=== PATIENT | female | born 1975 | race Caucasian/White ===

== ENCOUNTER → 2019-12-23 11:06 | Outpatient (CLI) | payer OTHER, SELFPAY ==
--- NOTE | 2019-12-22 | EMB_PTH ---
PATIENT: DAT MERINO LOC: [facility] U#:[id number] AGE/SX: 50/F ROOM: RE12/23/[address]: Dr. Kong Shrestha MD : 1975 BED: DIS: SPEC #: [id number] RECD: 12/23/19 10:57 STATUS: CRISTINA DARÍO #: [id number] JAY: 12/22/19 00:[address]: Kong Shrestha DEPT: SURGICAL PATHOLOGY RECD BY: Marquez Jensen Tissues: Endometrium, NOS Procedures: Surgery Specimen Level IV HEADER OPERATION: Endometrial biopsy PRE-OP DIAGNOSIS: N92.1 TISSUE SUBMITTED: Endometrial biopsy MICROSCOPIC DIAGNOSIS Endometrium, biopsy: Polypoid fragments of benign, mildly inflamed endocervical tissue. See comment. AM:raffi 12/24/19 COMMENT The specimen may represent fragments of benign endocervical polyp. Clinical correlation is suggested. MICROSCOPIC DESCRIPTION Slides are reviewed. GROSS DESCRIPTION Received in fixative is one container labeled with the patient's name and designated EM biopsy. The specimen consists of multiple fragments of hemorrhagic mucoid tissue that in aggregate measure 1 x 1 x 0.1 cm. The specimen is totally submitted in one cassette. / SJ:raffi 12/23/19 TC:5 CPT: 63030
== END ==
PROVIDERS: Referring Provider Obstetrics & Gynecology; Visit Provider Obstetrics & Gynecology
DX: N92.1 Excessive and frequent menstruation with irregular cycle (principal)
CPT/HCPCS: 88305

== ENCOUNTER 2025-05-21 05:33 | Day surgery (SDC) | payer OTHER, SELFPAY ==
--- NOTE | 2025-05-10 16:45 | PAT.ANE_ITS ---
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 When Was Last Pacemaker Check QUESTION #4 FULL TEXT: You/Your Family Experience fever (hyperthermia) with Anesthesia Last Oral Intake Last Oral intake: Last Oral Intake NPO since Meds taken in AM with sips of water? Meds patient instructed to take am of surgery PONV PONV - tool planer set up operator: PONV - tool planer set up operator Female Yes 05/10/25 09:24 HX of Motion Sickness No 05/10/25 09:24 HX of N/V After Surgery No 05/10/25 09:24 Non-Smoker Yes 05/10/25 09:24 Duration of Surgery greater Yes 05/10/25 09:24 than 60 minutes Number of Risk Factors 3 05/10/25 09:24 PONV Score Moderate Risk 05/10/25 09:24 Respiratory Assessment Respiratory Assessment - tool planer set up operator: Respiratory Tract Infection Hx - tool planer set up operator Hx Respiratory Tract Infection No 05/10/25 09:24 STOP Sleep Apnea STOP Sleep Apnea - tool planer set up operator: STOP Sleep Apnea - tool planer set up operator Hx Hypertension No 05/10/25 09:24 Hx Sleep Apnea No 05/10/25 09:24 CPAP BIPAP Do you snore loudly (louder No 05/10/25 09:24 than talking or can be heard Do you often feel tired/ No 05/10/25 09:24 fatigued/ sleepy during daytime? Has anyone observed you stop No 05/10/25 09:24 breathing during sleep? STOP Results Negative 05/10/25 09:24 QUESTION #5 FULL TEXT : Do you snore loudly (louder than talking or can be heard through closed doors)? 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 Specify any problems Hx of Preganancy in last 3 No 05/10/25 09:24 Months Nurse Filling Out Transfusion JZOLLINGE 05/10/25 09:24 & Questions: Date: 05/10/25 05/10/25 09:24 Time: 0905/10/25 09:24 Patient unable to answer at this time (ie. confused, unrespo /Reproduction History /Reproductive History - tool planer set up operator: /Reproductive Hx- tool planer set up operator Hx Now No 05/10/25 09:24 Gestational Age (in weeks): EDC: Hx Hx Para Hx Section SAB No 05/10/25 09:24 [facility] Medical History (Updated 05/10/25 @ 09:24 by Elsa Rivera) Wears glasses Wears partial dentures Anxiety Hx of hypoglycemia Migraine headache Heartburn Non-smoker Shortness of breath on exertion Asthma History of echocardiogram Cardiology follow-up encounter History of stress test Home Medications ?Medication ?Instructions ?Recorded ?Last Taken ?Type budesonide-formoterol HFA 160 1 puff inhalation BID Unknown History mcg-4.5 mcg/actuation aerosol inhaler (Symbicort) megestrol 40 mg tablet 80 mg PO BID 05/10/25 Unknow n History sertraline 50 mg tablet 50 mg PO DAILY 05/10/25 Unkn own History Allergy/AdvReac Type Severity Reaction Status Date / Time albuterol Allergy Intermediate Chest Verified 05/10/25 09:10 tightness acetaminophen (From Tylenol) AdvReac Intermediate Rash Verified 05/10/25 09:09 Surgical History (Updated 05/10/25 @ 09:24 by Elsa Rivera) Hx of foot surgery Hx of tonsillectomy Social History Smoking Status: Never smoker Audit: Pertinent Findings Pertinent Findings EKG Perinent findings: ? Date. Normal sinus rhythm Echo (EF%) pertinent findings: January 22, 2025. EF is 55 to 60%. No regional wall motion abnormalities are seen. No aortic stenosis. Aortic root is dilated to 3.9 cm. Consult pertinent findings: March 26, 2025. Dr. Schulte?cardiology. 1. Chest pain-normal CT coronary angiography. 2. Preop clearance-May proceed with planned hysterectomy. 3. Dilation of ascending aorta. Mildly elevated at 3.8. Patient is to monitor blood pressures at home and report back if going up. 4. Obesity?discussed weight loss. Recommendation Anesthesia Recommendation Anesthesia recommendation: OPTIMIZED for anesthesia
[2025-05-13 08:19] LABS: Hematocrit 36.9 % (37-47); Hemoglobin 11.8 g/dL (12.0-15.0); Mean Corp Hgb Conc 32.0 g/dL (32-36); Mean Corpuscular Volume 74.8 fL (81-99); Mean Platelet Vol. 10.0 fl (6.2-12.0); Platelet Count 403 K/mm3 (150-450); RBC Distribution Width CV 15.7 % (11.6-14.6); RBC Distribution Width SD 42.9 fl (35.1-43.9); Red Blood Count 4.93 M/mm3 (4.2-5.4); White Blood Count 7.3 K/mm3 (4.4-11.0)
[2025-05-13 09:10] LABS: Anion Gap 11 (5-15); BUN 18 mg/dL (4-19); BUN/Creat Ratio 27.5 RATIO (10-20); Calcium,Total 8.7 mg/dL (7.6-11.0); Carbon Dioxide 21.8 mmol/L (21.0-32.0); Chloride 106 mmol/L (98-108); Glucose 101 mg/dL (70-99); Potassium 4.0 mmol/L (3.3-5.1)
[2025-05-13 12:32] LABS: Magnesium 2.2 mg/dL (1.5-2.2)
--- NOTE | 2025-05-19 12:01 | PCM.HP.BLA ---
History and Physical Date of Admission: 05/21/25 Expand All Collapse All Pre-Op History and Physical HPI: The patient is a 49 year old female presenting for pre-operative visit. She is scheduled for TLH, Bilateral salpingectomy, cyst, for Fibroid uterus, AUB on 05/21/25. Procedure discussed along with risks, benefits and complications. Other alternatives discussed for management. Consent form signed? Yes. PAST MEDICAL HISTORY PAST MEDICAL HISTORY Diagnosis Date ? Generalized anxiety disorder ? 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 FOOT SURGERY HX Left toe surgery ? ORAL SURGERY PROCEDURE ? TONSILLECTOMY & ADENOIDECTOMY <AGE 13 CURRENT MEDICATIONS Current Outpatient Medications Medication Sig Dispense Refill ? norethindrone (AYGESTIN) 5 mg tablet Take one tablet daily 30 tablet 1 ? SYMBICORT 160-4.5 mcg/actuation inhaler Inhale 1 puff as instructed two times a day. ? sertraline (ZOLOFT) 50 mg tablet Take 50 mg by mouth once daily. ? Epinastine HCl 0.05 % drop Use 1 drop in both eyes two times a day. ? tranexamic acid (LYSTEDA) 650 mg tablet Take 2 tablets 3 times a day as needed for heavy bleeding up to 5 days. 30 tablet 1 No current facility-administered medications for this visit. ALLERGIES: Albuterol and Acetaminophen PERSONAL HISTORY: SOCIAL HISTORY Social History Tobacco Use ? Smoking status: Never ? Smokeless tobacco: Never Vaping Use ? Vaping status: Never Used Substance Use Topics ? Alcohol use: Not Currently ? Drug use: Never FAMILY HISTORY: FAMILY HISTORY FAMILY HISTORY Problem Relation Age of Onset ? other (afib) Mother ? Diabetes Mother ? Hypertension Mother ? Hyperlipidemia Mother ? Stroke Father 73 ? Diabetes Father ? Hypertension Father ? Hyperlipidemia Father ? Kidney failure Sister stage 3 ? Diabetes Sister ? Hypertension Sister ? Hyperlipidemia Sister REVIEW OF SYMPTOMS: negative except as noted above PHYSICAL EXAMINATION: VITALS: Last menstrual period 03/11/2025. GENERAL: The patient is well nourished, well hydrated in no acute distress. , The patient is oriented to time, place, and person. NECK: full range of motion LUNGS: Clear to auscultation bilaterally. no wheezes, rhonchi or rales HEART: Regular rate and rhythm, Normal heart sounds, and No murmurs or gallops IMPRESSION: 49yo with AUB, fibroid uterus PLAN: total laparoscopic Hysterectomy, Bilateral salpingectomy, Cysto Pt has been counseled on risks/benefits and alternatives of surgery including but not limited to anesthesia, bleeding, infection, injury to pelvic structures including bowel, bladder, ureters and vessels. Pt wishes to proceed with surgery at this time. Pre and post op instructions reviewed I have reviewed and updated past medical and surgical history, medications and allergies Tequila Madsen MD Office Visit on 04/28/2025 Note shared with patient
[2025-05-21] VITALS (14 sets, daily range): BP systolic 106–151; BP diastolic 52–99; PULSE 66–83; RESP 14–18; TEMP 36.1–36.7; O2SAT 92–100; BMI 41.1
--- OUTSIDE RECORDS SUMMARY | 2025-05-21 05:38 | XMS RPT_ITS | CCD ---
Author Organization [facility] Care Team Providers Care Strategic Manager Name Role Phone TANNER CASTRO Unavailable Unavailable MICHA CASTRO Unavailable Unavailable KATE ALBERTO Attending Unavailable MICHA CASTRO Primary Care Unavailable MARIELENA CALHOUN Referring Unavailable Marielena Calhoun PA-C Unavailable [phone] Marielena Calhoun PA-C Unavailable Rheumatolgy Provider Unavailable Unavailable Security Systems Administrator/Gynecology Prov. Unavailable Un available General Surgery Provider Unavailable Unavail able Fady MCGREGOR, Dr. Kong Gonzalez Unavailable Marislo York PA-C Unavailable Jacoby MCGREGOR, Greyson Gonzalez Unavailable Linda MEDICAL OFFICE PROFESSIONAL INSTRUCTOR, Susan Gonzalez Unavailable Unavailab bonnie Moore MEDICAL OFFICE PROFESSIONAL INSTRUCTOR, Nannette Luna Unavailable Unavailab bonnie Albert MEDICAL OFFICE PROFESSIONAL INSTRUCTOR, Lori Unavailable Unavailabl e Zaugg MEDICAL OFFICE PROFESSIONAL INSTRUCTOR, Katy Unavailable Unavailable Unavailable Unavailable Miguel Angel Ware PA-C Unavailable Eddi MEDICAL OFFICE PROFESSIONAL INSTRUCTOR, Ashok Unavailable Unavailable Cardiology Provider Unavailable Unavailable [facility] Unavailable Ese Lux LPN Unavailable Unavailabl e PRASANNA Attending Unavailable Marielena Calhoun Primary Care Provider SHERRIE MONSON Referring Unavailable MARIELENA CALHOUN Primary Care Unavailable SHERRIE MONSON MD Admitting Unavailable SHERRIE MONSON MD Primary Care Unavailable SHERRIE MONSON MD Attending Unavailable MARIELENA CALHOUN Consulting Unavailable PROVIDER, UNKNOWN Consulting Unavailable CALHOUN, MARIELENA J Attending Unavailable CALHOUN, MARIELENA J Admitting Unavailable CALHOUN, MARIELENA J Primary Care Unavailable CALHOUN, MARIELENA J Consulting Unavailable PROVIDER, UNKNOWN Consulting Unavailable [facility] Admitting Unavailable [facility] Primary Care Unavailable [facility] Attending Unavailable CALHOUN, MARIELENA J Consulting Unavailable PROVIDER, UNKNOWN Consulting Unavailable CALHOUN, MARIELENA J Referring Unavailable ORESTESSYLVESTER E Admitting Unavailable ORESTES, SYLVESTER E Primary Care Unavailable ORESTESSYLVESTER E Attending Unavailable CALHOUN, MARIELENA J Consulting Unavailable PROVIDER, UNKNOWN Consulting Unavailable CALHOUN, MARIELENA J Referring Unavailable CALHOUN, MARIELENA J Consulting Unavailable SAGAR CASANOVA MD Admitting Unavailable SAGAR CASANOVA MD Primary Care Unavailable SAGAR CASANOVA MD Attending Unavailable PROVIDER, UNKNOWN Consulting Unavailable Unavailable Primary Care Provider Unavailabl e KATEY, KAYLAH Attending Unavailable CALHOUN, MARIELENA J Primary Care Unavailable KATEY, KAYLAH Referring Unavailable KATEY, KAYLAH Referring Unavailable CALHOUN, MARIELENA J Primary Care Unavailable KATEY, KAYLAH Attending Unavailable CALHOUN, MARIELENA J Referring Unavailable CALHOUN, MARIELENA J Primary Care Unavailable NEYHART HOFFMANN, TEQUILA Attending Unavail able CALHOUN, MARIELENA J Primary Care Unavailable NEYHART HOFFMANN, TEQUILA Referring Unavail able CALHOUN, MARIELENA J Primary Care Unavailable NEYHART HOFFMANN, TEQUILA Attending Unavail able SELF Referring Unavailable CALHOUN, MARIELENA J Primary Care Unavailable Neyhart-Hoffmann, Tequila Referring Unavail able Neyhart-Hoffmann, Tequila Attending Unavail able Ralph Benitez Consulting Unavailable Calhoun PA, Marielena Primary Care Unavailable Allergies Allergy Classification Reported Allergen(s) Allergy Type Date of Onset Reaction(s) Facility (4 sources) acetaminophen; Translations: [ACETAMINOPHEN] Drug Allergy 5 [facility] (20 sources) Acetaminophen Drug Allergy 5 [facility] (10 sources) Albuterol; Translations: [ALBUTEROL] Drug Allergy 3 Shortness of Breath [facility] (1 source) Albuterol Drug Allergy 5 [facility] Medications Current Medications Medication Drug Class(es) Dates Sig (Normalized) Sig (Original) 120 actuat budesonide 0.16 mg/actuat / formoterol fumarate 0.0045 mg/actuat metered dose inhaler (20 sources) Corticosteroid, beta2-Adrenergic Agonist Start: 12-11-2024 take 1 puff(s) by inhalation twice daily SYMBICORT 160-4.5 mcg/actuation inhaler Inhale 1 puff as instructed two times a day. 12/11/2024 Active Start: 01-18-2023 take 1 puff(s) by in halation twice daily Symbicort 160 mcg-4.5 mcg/actuation HFA aerosol inhaler ; 1 (one) Puff BID for 0 days Quantity: 1 {Applicator} Refills: 5 Ordered: 11-Dec-2024 ANNIE Calhoun Start: 11-Dec-2024 difluprednate 0.5 mg/ml ophthalmic suspension (20 sources) take 1 drop(s) into the eye(s) twice daily Durezol 0.05 % Ophthalmic Emulsion ; 1 drop each eye bid (0.05 %) epinastine hydrochloride 0.5 mg/ml ophthalmic solution (8 sources) Histamine-1 Receptor Inhibitor, Adrenergic Receptor Agonist take 1 drop(s) into the eye(s) twice daily Epinastine HCl 0.05 % drop Use 1 drop in both eyes two times a day. Active 200 actuat levalbuterol 0.045 mg/actuat metered dose inhaler (20 sources) beta2-Adrenergic Agonist Start: 11-29-19 take 2 puff(s) by inhalation every four to six hours as needed Xopenex HFA 45 mcg/actuation aerosol inhaler ; 2 (two) Puff every 4-6 hours as needed for 0 days Quantity: 1 {Applicator} Refills: 1 Ordered: 29-Nov-2023 ANNIE Calhoun Start: 29-Nov-2023 Comments: Medication taken as needed. Has not tolerated albuterol inhaler in the past. Start: 01-04-2020 take 2 puff(s) by in halation every four to six hours as needed Xopenex HFA 45 MCG/ACT Inhalation Aerosol ; 2 (two) Puff every 4-6 hours as needed for 0 days Quantity: 1 {Inhaler} Refills: 0 Ordered: 04-Jan-2020 ClintSCAR subramanianN Lori Start: 04-Jan-2020 Comments: Medication taken as needed. Has not tolerated albuterol inhaler in the past. Comment on above: Medication taken as needed. Has not tolerated albuterol inhaler in the past. multivitamin tablet (20 sources) multivitamin tab let norethindrone acetate 5 mg oral tablet (6 sources) Start: 03-31-2025 norethindrone (AYGESTIN) 5 mg tablet Indications: abnormal uterine bleeding due to hormonal imbalance Take one tablet daily 30 tablet 1 03/31/2025 Active Start: 03-15-2025 norethindrone (AYGESTIN) 5 mg tablet Indications: abnormal uterine bleeding due to hormonal imbalance Take 1 tablet TID until bleeding stops for 24 hours, then 1 tablet BID x 3 days, then 1 tablet daily x 3 days. 35 tablet 03/16/2025 Active sertraline 50 mg oral tablet (20 sources) Serotonin Reuptake Inhibitor Start: 11-29-2023 sertraline 50 mg tablet ; 1 (one) Tablet daily for 0 days Quantity: 90 {Tablet} Refills: 1 Ordered: 31-Mar-2025 ANNIE Calhoun Start: 31-Mar-2025 Start: 03-25-2023 take 0.5 tablet by m outh once daily, then take 1 tablet by mouth once daily Sertraline HCl 50 MG Oral Tablet ; 1/2 Tablet daily x 1 week and then increase to 1 tablet daily for 0 days Quantity: 30 {Tablet} Refills: 5 Ordered: 25-Mar-2023 ANNIE Calhoun Start: 25-Mar-2023 tranexamic acid 650 mg oral tablet (8 sources) Antifibrinolytic Agent Start: 03-01-2025 tranexa jennifer acid (LYSTEDA) 650 mg tablet Take 2 tablets 3 times a day as needed for heavy bleeding up to 5 days. 30 tablet 1 03/01/2025 Active Completed/Discontinued Medications Medication Drug Class(es) Dates Sig (Normalized) Sig (Original) [id number] 200 actuat albuterol 0.09 mg/actuat metered dose inhaler (20 sources) beta2-Adrenergic Agonist Ventolin HFA 108 (90 Base) MCG/ACT Inhalation Aerosol Solution ; (108 (90 Base) MCG/ACT) Status: Inactive amoxicillin 875 mg / clavulanate 125 mg oral tablet (20 sources) Penicillin-class Antibacterial Start: 12-30-2023 End: 01-06-2024 amoxicillin 875 mg-potassium clavulanate 125 mg tablet ; 1 (one) tablet two times daily for 7 days Quantity: 14 {Tablet} Refills: 0 Ordered: 30-Dec-2023 ANNIE Ware Start: 30-Dec-2023 End: 06-Jan-2024 Status: Inactive Start: 10-13-2021 End: 10-23-2021 take 1 tablet by mouth twice daily Amoxicillin-Pot Clavulanate 875-125 MG Oral Tablet ; 1 (one) Tablet two times daily for 10 days Quantity: 20 {Tablet} Refills: 0 Ordered: 13-Oct-2021 ANNIE York Start: 13-Oct-2021 End: 23-Oct-2021 Status: Inactive Start: 10-24-2020 End: 11-03-2020 take 1 tablet by mouth twice daily Amoxicillin-Pot Clavulanate 875-125 MG Oral Tablet ; 1 (one) Tablet BID for 10 days Quantity: 20 {Tablet} Refills: 0 Ordered: 24-Oct-2020 ANNIE Calhoun Start: 24-Oct-2020 End: 03-Nov-2020 Status: Inactive cyclobenzaprine hydrochloride 10 mg oral tablet (20 sources) Muscle Relaxant Start: 03-12-2022 End: 03-19-2022 take 1 tablet by mouth three times daily as needed Cyclobenzaprine HCl 10 MG Oral Tablet ; 1 (one) Tablet TID prn for 7 days Quantity: 21 {Tablet} Refills: 0 Ordered: 12-Mar-2022 ANNIE Calhoun Start: 12-Mar-2022 End: 19-Mar-2022 Status: Inactive Comments: Please review spacing between this and sertraline. Comment on above: Please review maddison diallo between this and sertraline. famotidine 20 mg oral tablet (20 sources) Histamine-2 Receptor Antagonist Start: 10-23-2022 End: 11-29-2023 famotidine 20 mg tablet ; 1 (one) Tablet daily for 0 days Quantity: 30 {Tablet} Refills: 5 Ordered: 29-Nov-2023 ANNIE Calhoun Start: 23-Oct-2022 End: 29-Nov-2023 Status: Inactive 5 ml metoprolol tartrate 1 mg/ml injection (1 source) beta-Adrenergic Andrew Start: 03-18-2025 End: 03-18-2025 2.5 mg, INTRAVENOUS, ONCE, 1 dose, On Samra 03/18/25 at 0900, Administer IV push over 2-5 minutes., Preprocedure montelukast 10 mg oral tablet (20 sources) Leukotriene Receptor Antagonist take 1 tablet by mouth once daily Singulair 10 MG Oral Tablet ; 1 qd (10 MG) Status: Inactive nitrofurantoin, macrocrystals 100 mg oral capsule (20 sources) Nitrofuran Antibacterial Start: 11-14-2020 End: 11-19-2020 take 1 capsule by mouth twice daily Nitrofurantoin Macrocrystal 100 MG Oral Capsule ; 1 (one) Capsule BID for 5 days Quantity: 10 {Capsule} Refills: 0 Ordered: 14-Nov-2020 ANNIE Calhoun Start: 14-Nov-2020 End: 19-Nov-2020 Status: Inactive nitroglycerin 0.4 mg sublingual tablet (1 source) Nitrate Vasodilator Start: 03-18-2025 End: 03-18-2025 take 1 tablet under the tongue once 0.4 mg, SUBLINGUAL, ONCE, 1 dose, On Samra 03/18/25 at 0930, Give for cardiac CTA Place tablet under tongue and allow to dissolve; do not chew or break., Preprocedure Start: 03-18-2025 End: 03-18-2025 take 1 tablet under the tongue once 0.4 mg, SUBLINGUAL, ONCE, 1 dose, On Samra 03/18/25 at 0930, Give for cardiac CTA Place tablet under tongue and allow to dissolve; do not chew or break., Preprocedure omeprazole 20 mg delayed release oral capsule (20 sources) Proton Pump Inhibitor Start: 12-14-2022 End: 11-29-2023 omeprazole 20 mg capsule,delayed release ; 1 (one) Capsule 30 minutes before first meal of the day for 0 days Quantity: 30 {Capsule} Refills: 0 Ordered: 29-Nov-2023 ANNIE Calhoun Start: 14-Dec-2022 End: 29-Nov-2023 Status: Inactive predniSONE 20 mg oral tablet (20 sources) Start: 01-31-2022 End: 03-12-2022 take 3 tablets by mouth once daily, then take 2 tablets by mouth once daily, then take 1 tablet by mouth once daily, then take 0.5 tablet by mouth once daily predniSONE 20 MG Oral Tablet ; 1 (one) Tablet as directed for 0 days Quantity: 20 {Tablet} Refills: 0 Ordered: 12-Mar-2022 ANNIE Calhoun Start: 31-Jan-2022 End: 12-Mar-2022 Status: Inactive Comments: Take 3tabs qd for 3 days thenTake 2tabs qd for 3 days thenTake 1tab qd for 3 days thenTake 1/2tab qd for 4 days. Comment on above: Take 3tabs qd for 3 days thenTake 2tabs qd for 3 days thenTake 1tab qd for 3 days thenTake 1/2tab qd for 4 days. sulfamethoxazole 800 mg / trimethoprim 160 mg oral tablet (20 sources) Dihydrofolate Reductase Inhibitor Antibacterial, Sulfonamide Antimicrobial Start: 10-23-2021 End: 11-02-2021 take 1 tablet by mouth twice daily Bactrim DS 800-160 MG Oral Tablet ; 1 (one) Tablet bid for 10 days Quantity: 20 {Tablet} Refills: 0 Ordered: 23-Oct-2021 MD Greyson Dozier Start: 23-Oct-2021 End: 02-Nov-2021 Status: Inactive SUMAtriptan 50 mg oral tablet (20 sources) Serotonin-1b and Serotonin-1d Receptor Agonist Start: 11-29-2023 End: 12-11-2024 Imitrex 50 mg tablet ; 1 (one) tablet at headache onset and then repeat in 2 hours if headache persists for 0 days Quantity: 9 {Tablet} Refills: 5 Ordered: 11-Dec-2024 CAM Lux Start: 29-Nov-2023 End: 11-Dec-2024 Status: Inactive Comments: max 200mg/24 hours Comment on above: max 200mg/24 hours Problems Active Problems Problem Classification Problem Date Documented Da te Episodic/Chronic Abdominal pain (1 source) Generalized abdominal pain; Translations: [Generalized abdominal pain] 03-25-2025 Episodic Anxiety disorders (20 sources) Mixed anxiety and depressive disorder; Translations: [Anxiety disorder, unspecified] 12-14-2022 Chronic Aortic; peripheral; and visceral artery aneurysms (4 sources) Aneurysm of ascending aorta; Translations: [Aneurysm of the ascending aorta, without rupture (HCC)] 01-28-2025 Chronic Asthma (20 sources) Asthma; Translations: [Unspecified asthma, uncomplicated] 12-14-2022 Chronic Benign neoplasm of uterus (20 sources) Uterine leiomyoma; Translations: [Leiomyoma of uterus, unspecified] Onset: 03-05-2025 12-21-2024 Episodic Deficiency and other anemia (20 sources) Iron deficiency anemia; Translations: [Iron deficiency anemia, unspecified] 12-20-2022 Episodic Disorders of lipid metabolism (20 sources) Hyperlipidemia; Translations: [Hyperlipidemia, unspecified] 11-29-2023 Chronic Headache; including migraine (20 sources) Migraine; Translations: [Migraine, unspecified, not intractable, without status migrainosus] 11-29-2023 Chronic Immunizations and screening for infectious disease (20 sources) Encounter for screening for human papillomavirus (HPV); Translations: [Immunization due] Onset: 01-03-2023 06-24-2020 Episodic Menopausal disorders (1 source) Menorrhagia; Translations: [Excessive bleeding in the premenopausal period] 03-09-2025 Chronic Menstrual disorders (20 sources) Irregular periods; Translations: [Irregular menstruation, unspecified] 12-14-2022 Chronic Nonspecific chest pain (20 sources) Chest pain; Translations: [Chest pain, unspecified] 12-24-2022 Episodic Other circulatory disease (20 sources) Enlarged aortic root; Translations: [Other specified disorders of arteries and arterioles] 12-14-2022 Chronic Other endocrine disorders (20 sources) Hypoglycemia 12-14-2022 Chronic Other female genital disorders (6 sources) Abnormal uterine bleeding; Translations: [Abnormal uterine and vaginal bleeding, unspecified] 03-01-2025 Chronic Other female genital disorders (2 sources) Abnormal uterine and vaginal bleeding, unspecified; Translations: [Abnormal uterine bleeding] Onset: 03-05-2025 Chronic Other female genital disorders (20 sources) Endocervical polyp; Translations: [Polyp of cervix uteri] 12-14-2022 Episodic Other gastrointestinal disorders (20 sources) Heartburn; Translations: [Heartburn] 12-14-2022 Episodic Other lower respiratory disease (20 sources) Cough; Translations: [Cough] 10-24-2020 Episodic Other lower respiratory disease (20 sources) Dyspnea; Translations: [Shortness of breath] 06-24-2020 Episodic Other non-traumatic joint disorders (20 sources) Ankle pain; Translations: [Pain in left ankle and joints of left foot] 12-14-2022 Episodic Other non-traumatic joint disorders (20 sources) Multiple joint pain; Translations: [Pain in unspecified joint] 12-14-2022 Episodic Other nutritional; endocrine; and metabolic disorders (4 sources) Obesity; Translations: [Obesity, unspecified] 01-28-2025 Chronic Other screening for suspected conditions (not mental disorders or infectious disease) (20 sources) Endometrium thickened; Translations: [Abnormal findings on diagnostic imaging of other specified body structures] Onset: 03-25-2025 12-21-2024 Chronic Other screening for suspected conditions (not mental disorders or infectious disease) (20 sources) Encounter for screening for malignant neoplasm of cervix; Translations: [Full blood count abnormal] Onset: 01-03-2023 12-20-2022 Episodic Other skin disorders (20 sources) Anton - lesion ; Translations: [Corns and callosities] 12-14-2022 Episodic Other upper respiratory infections (20 sources) Sinusitis; Translations: [Chronic sinusitis, unspecified] 05-25-2021 Chronic Other upper respiratory infections (20 sources) Acute sinusitis; Translations: [Acute sinusitis, unspecified] 10-13-2021 Episodic Otitis media and related conditions (20 sources) Otitis media of right ear; Translations: [Otitis media, unspecified, right ear] 12-14-2022 Episodic Spondylosis; intervertebral disc disorders; other back problems (20 sources) Spasm of back muscles; Translations: [Muscle spasm of back] 12-14-2022 Episodic Thyroid disorders (20 sources) Goiter; Translations: [Nontoxic goiter, unspecified] 12-14-2022 Chronic Unclassified (20 sources) Iris arthritis 12-14-2022 Unclassified (20 sources) Number of Children 01-24-2022 Comment on above: 2. Unclassified (20 sources) Number of Pregnancies 01-24-2022 Comment on above: 2. Unclassified (20 sources) Vaginal deliveries 01-24-2022 Comment on above: 2. Unclassified (20 sources) Well adult female - The patient has decreased energy level and is sleeping well. The first day of the last menstrual period was : (01/12/2022). The patient is not using any method of contraception at this time. The patient has a balanced diet and takes supplemental vitamins (probiotics). The patient exercises none (very active). The patient sleeps 5 hours per night. Note for Well adult female: Pt is due for a mammo.Has been having a lot of heartburn x 6 months.Sometimes has anxiety and trouble sleeping.Lots of abd bloating - improvement with probiotic/prebiotic. BMs normal.Joint pain - bilateral with morning stiffness. No tick bite.Having migraines.Having hot flashes - mostly in the morning. Periods have been changing - some heavy, some light; skipping. Menarche at age 10. Mom went through menopause at age 42-43.Gaining weight despite eating healthier. Working very long hours at work.Depression; mentally tired and lacking motivation. Son is overseas ([place]). Has good support system. 01-24-2022 Unclassified (1 source) Follow up for multiple chronic conditions - The patient is here for follow-up of anxiety, asthma, depression, GERD and hyperlipidemia. The patient always takes the prescribed medications. No side effects noted. The patient has an active lifestyle but no regular exercise program. The patient's dietary compliance is fairly good usually adhering to recommendations. The patient states that breathing effort is more difficult (on exertion) and headaches are rarely noted. The patient states that the disease has no overall impact. Note for Multiple chronic conditions follow-up: Patient would like to talk about irregular menses.Patient is fasting today. 12-11-2024 Unclassified (20 sources) Follow up for multiple chronic conditions - The patient is here for follow-up of anxiety, asthma, depression, GERD and hyperlipidemia. The patient always takes the prescribed medications. No side effects noted. The patient has an active lifestyle but no regular exercise program. The patient's dietary compliance is fairly good usually adhering to recommendations. The patient states that breathing effort is more difficult (on exertion) and headaches are rarely noted. The patient states that the disease has no overall impact. Note for Multiple chronic conditions follow-up: Patient would like to talk about irregular menses.Had 1-2 periods early last year (around mid Dec) and then nothing since until 11/30/2024. Very heavy; lasted until the . Was wearing 2 heavy pads and changing every 2-3 hours. Still having perimenopausal symptoms - hot flashes, night sweats, etc. Patient is fasting today. 12-11-2024 Unclassified (1 source) Pre-Op Exam Onset: 04-28-2025 Urinary tract infections (20 sources) Urinary tract infectious disease; Translations: [Urinary tract infection, site not specified] 11-14-2020 Episodic Past or Other Problems Problem Classification Problem Date Documented Da te Episodic/Chronic Unclassified (1 source) migraines - Pt is here for migraines and would like labs done 11-29-2023 Unclassified (20 sources) Menopause - The onset of menopause has been gradual and has been occurring in a persistent pattern for 3 months. The course has been increasing. The symptoms are described as moderate. Menses are described as irregular and light flow. The symptoms include sweating, headaches and irritability. Note for Menopause: Mom started perimenopause at age 46. Previously last period was in September but then had one 2 weeks ago - was just spotting.Usually has migraine day before menses and those haven't been as bad but has had occasion headaches - resolves with analgesics. + night sweats and hot flashes. Has been have substernal/epigastric pain for about 1 month. Intermittent tightness feeling. No change with inhalers. Never exertional. Only lasts for about 2-5 minutes at a time. Not accompanied with any other symptoms. No heartburn - taking pepcid.Has had some numbness in left arm and left leg on occasion - estimates 3-4 days a week. They do not happen at the same time (is sometimes the leg that does it and sometimes the arm that does it). It only happens when first wakes up and will move her arm or leg around and it resolves within minutes. Does wake up with body in weird positions.Has joint pain - mostly in winter - wrists/elbows/shoulders/ knees/hips. + morning stiffness x 90 minutes; did a course of steroids in 2021 which resolved the symptoms for quite a while. 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 Eating better. Reflux is better. Stopped ibuprofen.Tylenol does take the edge off.Occ hurts to take a deep breath; no cough.H/o shingles in the area. 03-12-2022 Unclassified (20 sources) Cold Symptoms - Note for Upper respiratory infection: Was seen by Marisol York 10-10-21 with diagnosis of viral URI. No improvement and was given rx for Augmentin 10-13-21. Sinus drainage and cough improved. Continues with right ear pain and pressure. reviewed by [facility] 10-23-2021 Unclassified (20 sources) Cold Symptoms - Symptoms include sneezing, nasal congestion, runny nose, ear fullness (itching), dry cough, productive cough, headache and facial pain, but do not include ear pain, sore throat, scratchy throat, wheezing, fever, chills or general malaise. The onset was sudden 1 week(s) ago. The symptoms occur constantly. The patient describes this as moderate in severity and worsening (cough is getting worse). Current treatment includes non-prescription cold medication. The patient has not been exposed to an individual with a cough, an individual with an upper respiratory infection or an individual with similar symptoms. Medical history includes recurrent sinusitis, but patient denies history of seasonal allergies. 10-10-2021 Unclassified (20 sources) Foot pain - The pain is in the left foot and is located in the lateral column and heel. The onset of the foot pain was gradual and has been occurring in a persistent pattern for 2 months. The pain is moderate to severe. The pain is characterized as a sharp stabbing. The pain is aggravated by physical activity. The pain has been relieved by nothing (has tried Ibuprofen). The symptoms have been associated with swelling (slight) and painful ROM. Note for Foot pain: Pt rolled her ankle 2 months ago but didn't think anything of but pain started soon after that and is getting worse. 06-26-2021 Unclassified (20 sources) Foot pain - The pain is in the left foot and is located in the heel. The onset of the foot pain was gradual and has been occurring in a persistent pattern for 2 months. The course has been worsening. The pain is moderate. The pain is characterized as a dull aching (will burn at times). The pain is aggravated by physical activity. Note for Foot pain: Pt can feel a lump on her heel when she pushes on it.No history of injury. 05-25-2021 Unclassified (20 sources) UTI - Symptoms include dysuria, urinary frequency, urinary urgency, hematuria and abdominal pain. The pain is located in the suprapubic area. There is no radiation. The patient describes the pain as burning. Onset was gradual 2 day(s) ago. The symptoms occur constantly. The patient describes this as severe and worsening. Associated symptoms do not include chills or nausea. Note for UTI: Did take AZO which helped.LMP was 1 week ago. 11-14-2020 Unclassified (20 sources) Cold Symptoms - Symptoms include nasal congestion, runny nose, non-purulent sputum, ear pain, dry cough (mild), chills, general malaise, headache and facial pain, but do not include sore throat or fever. The onset was gradual 3 day(s) ago. The symptoms occur constantly. The patient describes this as moderate in severity and worsening. Current treatment includes non-prescription cold medication and allergy medications. The patient has been exposed to an individual with similar symptoms ( and son). Medical history includes recurrent sinusitis (yearly) and asthma, but patient denies history of seasonal allergies. Note for Upper respiratory infection: Loss of taste and smell. Achy. Tmax 99. 10-24-2020 Unclassified (20 sources) Cough - The onset of the cough has been gradual (4-5 wks- dry-since having to wear a mask. Has had 3 nose bleeds since. She has asthma. Has been having shortness of breath some-using inhaler more then normal- been qd; helps). Associated symptoms include headache (but she gets headaches and migraine (2-3 x a month); more in back of head/neck area), while there is no fever, runny nose or sore throat. Note for Cough: Has had body aches- back around to ribs and also arms and neck- but they also had to move a cow that was in the mud.+ exposure to covid. 06-24-2020 Unclassified (20 sources) Well adult female - The patient feels well with minor complaints (shortness of breath , chest hurts sometimes, not sleeping well( average 4 hrs at night). alot of stress right now, hot flashes. [facility] did a stress test , MRI, EKG, D -Dimer( was positive) everything else was fine. Did not set up with any specialist. Told her she had pre-asthma.), has decreased energy level (depends on day) and is sleeping poorly. The first day of the last menstrual period was :. The patient has a balanced diet (depends on day- last doctor told her to do 6 small meals a day due to her blood sugar is low.) and takes no supplemental vitamins & iron. 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 The patient sleeps 4 hours per night. 12-11-2019 Unclassified (20 sources) [ADDITIONAL REASON] new pt consult - Patient is here for a new patient consult- she does have an inhaler for her asthma and takes medication for her eyes, along with allergy medication for her asthma. She does have shortness of breath (activities or when laying down) and chest pain- she states that she has not used the ventolin because it was making her chest hurt and causes pain down her left arm, and forgets to take the allergy medication. Does have headaches all the time and states she has about a migraine once a week or every other. No pain right now. 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 12-11-2019 Unclassified (20 sources) migraines - Pt is here for migraines and would like labs done. Pt has migraines 1 time a week or every other week. Had migraines when she was younger --- always before would have her menses. Improved when on OCP and leveled out.For the past year they have been really bad again - light sensitivity, nausea, noise sensitivity. Has tried numerous OTC products without improvement. Mild usually lasts 1/2 day but if bad could last x couple of days.Periods have been irregular - triggered by menses still. Had March, Aug, Oct. Since has had early November and has been spotting since.Mom started with menopausal around age 45.Having some hot flashes - able to avoid triggers for that. 11-29-2023 Unclassified (6 sources) new pt consult - Patient is here for a new patient consult- she does have an inhaler for her asthma and takes medication for her eyes, along with allergy medication for her asthma. She does have shortness of breath (activities or when laying down) and chest pain- she states that she has not used the ventolin because it was making her chest hurt and causes pain down her left arm, and forgets to take the allergy medication. Does have headaches all the time and states she has about a migraine once a week or every other. No pain right now. 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 12-11-2019 Unclassified (6 sources) [ADDITIONAL REASON] Well adult female - The patient feels well with minor complaints (shortness of breath , chest hurts sometimes, not sleeping well( average 4 hrs at night). alot of stress right now, hot flashes. [facility] did a stress test , MRI, EKG, D -Dimer( was positive) everything else was fine. Did not set up with any specialist. Told her she had pre-asthma.), has decreased energy level (depends on day) and is sleeping poorly. The first day of the last menstrual period was :. The patient has a balanced diet (depends on day- last doctor told her to do 6 small meals a day due to her blood sugar is low.) and takes no supplemental vitamins & iron. 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 The patient sleeps 4 hours per night. 12-11-2019 Unclassified (20 sources) Cold Symptoms - Symptoms include ear pain, ear fullness and dry cough. The onset was 3 day(s) ago. The symptoms occur constantly. The patient describes this as mild and worsening. Current treatment includes non-prescription cold medication (DayQuil and NyQuil) and NSAIDs (ibuprofen). The patient has been exposed to an individual with similar symptoms (work). 12-30-2023 Results Test Name Value Interpretation Reference Range Facility Basic Metabolic Profile (BMP )on 05-13-2025 BUN/CRE 27.5 RATIO High 10-20 [facility] Comment on above: Performed By: #### L 500.2500, L100.0500, BTSPAT #### [facility] [address] [place], [address] Calcium [Mass/Vol] 8.7 mg/dL Normal 7.6-11.0 [facility] Comment on above: Performed By: #### L 500.2500, L100.0500, BTSPAT #### [facility] [address] [place], [address] Chloride [Moles/Vol] 106 mmol/L Normal 98-108 [facility] Comment on above: Performed By: #### L 500.2500, L100.0500, BTSPAT #### [facility] [address] [place], [address] CO2 [Moles/Vol] 21.8 mmol/L Normal 21.0-32.0 [facility] Comment on above: Performed By: #### L 500.2500, L100.0500, BTSPAT #### [facility] [address] [place], [address] Creatinine [Mass/Vol] 0.66 mg/dL Low 0.70-1.20 [facility] Comment on above: Performed By: #### L 500.2500, L100.0500, BTSPAT #### [facility] [address] [place], [address] GAP 11 Normal 5-15 [facility] Comment on above: Performed By: #### L 500.2500, L100.0500, BTSPAT #### [facility] [address] [place], [address] GFR/1.73 sq M.predicted among non-blacks MDRD (S/P/Bld) [Vol rate/Area] 108 mL/min/{1.73_m2} Normal >60 [facility] Comment on above: Result Comment: mL/m in/1.73m2 CKD-EPI Creatinine Equation (2020) Performed By: #### L 500.2500, L100.0500, BTSPAT #### [facility] [address] [place], [address] Glucose [Mass/Vol] 101 mg/dL High 70-99 [facility] Comment on above: Performed By: #### L 500.2500, L100.0500, BTSPAT #### [facility] [address] [place], [address] Potassium [Moles/Vol] 4.0 mmol/L Normal 3.3-5.1 [facility] Comment on above: Performed By: #### L 500.2500, L100.0500, BTSPAT #### [facility] [address] [place], [address] Sodium [Moles/Vol] 138 mmol/L Normal 133-145 [facility] Comment on above: Performed By: #### L 500.2500, L100.0500, BTSPAT #### [facility] [address] [place], [address] Urea nitrogen [Mass/Vol] 18 mg/dL Normal 4-19 [facility] Comment on above: Performed By: #### L 500.2500, L100.0500, BTSPAT #### [facility] [address] [place], [address] CBC-Complete Blood Cnt No Di ffon 05-13-2025 Erythrocyte distribution width (RBC) [Ratio] 15.7 % High 11.6-14.6 [facility] Comment on above: Performed By: #### L 500.2500, L100.0500, BTSPAT #### [facility] [address] [place], [address] Hematocrit (Bld) [Volume fraction] 36.9 % Low 37-47 [facility] Comment on above: Performed By: #### L 500.2500, L100.0500, BTSPAT #### [facility] [address] [place], [address] Hemoglobin (Bld) [Mass/Vol] 11.8 g/dL Low 12.0-15.0 [facility] Comment on above: Performed By: #### L 500.2500, L100.0500, BTSPAT #### [facility] [address] [place], [address] MCH (RBC) [Entitic mass] 23.9 pg Low 27.0-32.0 [facility] Comment on above: Performed By: #### L 500.2500, L100.0500, BTSPAT #### [facility] [address] [place], [address] MCHC (RBC) [Mass/Vol] 32.0 g/dL Normal 32-36 [facility] Comment on above: Performed By: #### L 500.2500, L100.0500, BTSPAT #### [facility] [address] [place], [address] MCV (RBC) [Entitic vol] 74.8 fL Low 81-99 [facility] Comment on above: Performed By: #### L 500.2500, L100.0500, BTSPAT #### [facility] [address] [place], [address] Platelet mean volume (Bld) [Entitic vol] 10.0 fL Normal 6.2-12.0 [facility] Comment on above: Performed By: #### L 500.2500, L100.0500, BTSPAT #### [facility] [address] [place], [address] Platelets (Bld) [#/Vol] 403 10*3/uL Normal 150-450 [facility] Comment on above: Performed By: #### L 500.2500, L100.0500, BTSPAT #### [facility] [address] [place], [address] RBC (Bld) [#/Vol] 4.93 10*6/uL Normal 4.2-5.4 [facility] Comment on above: Performed By: #### L 500.2500, L100.0500, BTSPAT #### [facility] [address] [place], [address] RDW SD 42.9 fl Normal 35.1-43.9 [facility] Comment on above: Performed By: #### L 500.2500, L100.0500, BTSPAT #### [facility] [address] [place], [address] WBC (Bld) [#/Vol] 7.3 10*3/uL Normal 4.4-11.0 [facility] Comment on above: Performed By: #### L 500.2500, L100.0500, BTSPAT #### [facility] [address] [place], [address] Magnesiumon 05-13-2025 Magnesium [Mass/Vol] 2.2 mg/dL Normal 1.5-2.2 [facility] Comment on above: Performed By: #### L 501.5200 #### [facility] [address] [place], [address] Type AND Screen - PAT ONLYon 05-13-2025 Ab SCREEN GEL Negative Normal [facility] Comment on above: Order Comment: Reaso n for Laboratory Test pre op [id number] No N N S 0800 HYSTERECTOMY Performed By: #### L 500.2500, L100.0500, BTSPAT #### [facility] [address] [place], [address] MR/PAT.ANEon 05-10-2025 MR/PAT.ANE [facility] Medical Records Department [address] [place] [address] PAT - Anesthesia 05/10/25 1645 MR#: [id number] Acct: [id number] Name: JENNI MERINO Rep #: [id number] : 1975 49 From: Ralph Benitez MD PCP: ELMO Nation Status:PRE SDC Y Race: C [place] [facility] [place] Diagnosis/Proposed Procedure Planned Operative Procedure(s): ERAS, Hysterectomy,TLH, bilateral salpingectomy, cystoscopy Anesthesia History Anesthesia History - counter hand: Anesthesia History - counter hand Hx Hospitalization No 05/10/25 09:24 Any Problems With Anesthesia No 05/10/25 09:24 Cholinesterase deficiency No 05/10/25 09:24 You/Your Family Experience No 05/10/25 09:24 fever (hyperthermia) with Relationship Recent Exposure to Contagious Disease Does patient have nerve No 05/10/25 09:24 stimulator Patient instructed to have device shut off --Does patient have Pacemaker or ICD? When Was Last Pacemaker Check QUESTION #4 FULL TEXT: You/Your Family Experience fever (hyperthermia) with Anesthesia Last Oral Intake Last Oral intake: Last Oral Intake NPO since Meds taken in AM with sips of water? Meds patient instructed to take am of surgery PONV PONV - counter hand: PONV - counter hand Female Yes 05/10/25 09:24 HX of Motion Sickness No 05/10/25 09:24 HX of N/V After Surgery No 05/10/25 09:24 Non-Smoker Yes 05/10/25 09:24 Duration of Surgery greater Yes 05/10/25 09:24 than 60 minutes Number of Risk Factors 3 05/10/25 09:24 PONV Score Moderate Risk 05/10/25 09:24 Respiratory Assessment Respiratory Assessment - counter hand: Respiratory Tract Infection Hx - counter hand Hx Respiratory Tract Infection No 05/10/25 09:24 STOP Sleep Apnea STOP Sleep Apnea - counter hand: STOP Sleep Apnea - counter hand Hx Hypertension No 05/10/25 09:24 Hx Sleep Apnea No 05/10/25 09:24 CPAP BIPAP Do you snore loudly (louder No 05/10/25 09:24 than talking or can be heard Do you often feel tired/ No 05/10/25 09:24 fatigued/ sleepy during daytime? Has anyone observed you stop No 05/10/25 09:24 breathing during sleep? STOP Results Negative 05/10/25 09:24 QUESTION #5 FULL TEXT : Do you snore loudly (louder than talking or can be heard through closed doors)? 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 Specify any problems Hx of Preganancy in last 3 No 05/10/25 09:24 Months Nurse Filling Out Transfusion JZOLLINGE 05/10/25 09:24 Questions: Date: 05/10/25 05/10/25 09:24 Time: :05/10/25 09:24 Patient unable to answer at this time (ie. confused, unrespo /Reproduction History /Reproductive History - counter hand: /Reproductive Hx- counter hand Hx Now No 05/10/25 09:24 Gestational Age (in weeks): EDC: Hx Hx Para Hx Section SAB No 05/10/25 09:24 [facility] Medical History (Updated 05/10/25 @ 09:24 by Elsa Rivera) Wears glasses Wears partial dentures Anxiety Hx of hypoglycemia Migraine headache Heartburn Non-smoker Shortness of breath on exertion Asthma History of echocardiogram Cardiology follow-up encounter History of stress test Home Medications ???Medication ???Instructions ???Recorded ???Last Taken ???Type budesonide-formoterol HFA 160 1 puff inhalation BID 05/10/25 Unk nown History mcg-4.5 mcg/actuation aerosol inhaler (Symbicort) megestrol 40 mg tablet 80 mg PO BID 05/10/25 Unknown Hist ory sertraline 50 mg tablet 50 mg PO DAILY 05/10/25 Unknown Hi story Allergy/AdvReac Type Severity Reaction Status Date / Time albuterol Allergy Intermediate Chest Verified 05/10/25 09:10 tightness acetaminophen (From Tylenol) AdvReac Intermediate Rash Verified 05/10/25 09:09 Surgical History (Updated 05/10/25 @ 09:24 by Elsa Rivera) Hx of foot surgery Hx of tonsillectomy Social History Smoking Status: Never smoker (more content not included)... [facility] 04-28-2025 [facility] Office Visit (OBGYWM ) WILBERJENNI ([id number]) 1975 F Date Time Provider Department 04/28/25 10:10 AM TEQUILA MARCH OBGYWM During your visit today, we recorded the following information about you: Blood pressure Weight Height 130/70 116.1 kg 1.676 m Tequila March MD 04/28/2025 11:28 AM Signed Pre-Op History and Physical HPI: The patient is a 49 year old female presenting for pre-operative visit. She is scheduled for TLH, Bilateral salpingectomy, cyst, for Fibroid uterus, AUB on 05/21/25. Procedure discussed along with risks, benefits and complications. Other alternatives discussed for management. Consent form signed? Yes. 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 sertraline (ZOLOFT) 50 mg tablet Take 50 mg by mouth once daily. Epinastine HCl 0.05 % drop Use 1 drop in both eyes two times a day. tranexamic acid (LYSTEDA) 650 mg tablet Take 2 tablets 3 times a day as needed for heavy bleeding up to 5 days. 30 tablet 1 No current facility-administered medications for this visit. ALLERGIES: Albuterol and Acetaminophen PERSONAL HISTORY: Social History Tobacco Use Smoking status: Never Smokeless tobacco: Never Vaping Use Vaping status: Never Used Substance Use Topics Alcohol use: Not Currently Drug use: Never FAMILY HISTORY: FAMILY HISTORY Problem Relation Age of Onset other (afib) Mother Diabetes Mother Hypertension Mother Hyperlipidemia Mother Stroke Father 73 Diabetes Father Hypertension Father Hyperlipidemia Father Kidney failure Sister stage 3 Diabetes Sister Hypertension Sister Hyperlipidemia Sister REVIEW OF SYMPTOMS: negative except as noted above PHYSICAL EXAMINATION: VITALS: Last menstrual period 03/11/2025. GENERAL: The patient is well nourished, well hydrated in no acute distress. , The patient is oriented to time, place, and person. NECK: full range of motion LUNGS: Clear to auscultation bilaterally. no wheezes, rhonchi or rales HEART: Regular rate and rhythm, Normal heart sounds, and No murmurs or gallops IMPRESSION: 49yo with AUB, fibroid uterus PLAN: total laparoscopic Hysterectomy, Bilateral salpingectomy, Cysto Pt has been counseled on risks/benefits and alternatives of surgery including but not limited to anesthesia, bleeding, infection, injury to pelvic structures including bowel, bladder, ureters and vessels. Pt wishes to proceed with surgery at this time. Pre and post op instructions reviewed I have reviewed and updated past medical and surgical history, medications and allergies Tequila Hoffmann MD Allergies As of Date: 04/28/2025 Noted Allergy Reaction ALBUTEROL 01/03/2023 12 - Shortness of Breath ACETAMINOPHEN 03/16/2015 2 - Rash Comments: Chen flavored. Date Reviewed: 04/28/2025 Reviewed by: Flora Chan MA - Fully Assessed Reason for Visit: Pre-Op Exam [87] Primary Visit Diagnosis:Uterine leiomyoma, unspecified location [D25.9] Other Visit Diagnoses:Abnormal uterine bleeding (AUB) [N93.9] Pre-op exam [Z01.818] Prescriptions as of 04/28/2025 - norethindrone (AYGESTIN) 5 mg tablet Take one tablet daily - SYMBICORT 160-4.5 mcg/actuation inhaler Inhale 1 puff as instructed two times a day. - sertraline (ZOLOFT) 50 mg tablet Take 50 mg by mouth once daily. - Epinastine HCl 0.05 % drop Use 1 drop in both eyes two times a day. - tranexamic acid (LYSTEDA) 650 mg tablet Take 2 tablets 3 times a day as needed for heavy bleeding up to 5 days. Problem List As Of Date: 04/28/2025 (None) Encounter Status:Closed by TEQUILA HOFFMANN on 04/28/25 Normal [facility] HISTORY PHYSICALon HISTORY PHYSICAL HNO ID: [id number] Author: TEQUILA MARCH MD Service: ? Author Type: Physician Type: H&P Filed: 04/28/2025 11:28 Note Text: Pre-Op History and Physical HPI: The patient is a 49 year old female presenting for pre-operative visit. She is scheduled for TLH, Bilateral salpingectomy, cyst, for Fibroid uterus, AUB on 05/21/25. Procedure discussed along with risks, benefits and complications. Other alternatives discussed for management. Consent form signed? Yes. 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 sertraline (ZOLOFT) 50 mg tablet Take 50 mg by mouth once daily. Epinastine HCl 0.05 % drop Use 1 drop in both eyes two times a day. tranexamic acid (LYSTEDA) 650 mg tablet Take 2 tablets 3 times a day as needed for heavy bleeding up to 5 days. 30 tablet 1 No current facility-administered medications for this visit. ALLERGIES: Albuterol and Acetaminophen PERSONAL HISTORY: Social History Tobacco Use Smoking status: Never Smokeless tobacco: Never Vaping Use Vaping status: Never Used Substance Use Topics Alcohol use: Not Currently Drug use: Never FAMILY HISTORY: FAMILY HISTORY Problem Relation Age of Onset other (afib) Mother Diabetes Mother Hypertension Mother Hyperlipidemia Mother Stroke Father 73 Diabetes Father Hypertension Father Hyperlipidemia Father Kidney failure Sister stage 3 Diabetes Sister Hypertension Sister Hyperlipidemia Sister REVIEW OF SYMPTOMS: negative except as noted above PHYSICAL EXAMINATION: VITALS: Last menstrual period 03/11/2025. GENERAL: The patient is well nourished, well hydrated in no acute distress. , The patient is oriented to time, place, and person. NECK: full range of motion LUNGS: Clear to auscultation bilaterally. no wheezes, rhonchi or rales HEART: Regular rate and rhythm, Normal heart sounds, and No murmurs or gallops IMPRESSION: 49yo with AUB, fibroid uterus PLAN: total laparoscopic Hysterectomy, Bilateral salpingectomy, Cysto Pt has been counseled on risks/benefits and alternatives of surgery including but not limited to anesthesia, bleeding, infection, injury to pelvic structures including bowel, bladder, ureters and vessels. Pt wishes to proceed with surgery at this time. Pre and post op instructions reviewed I have reviewed and updated past medical and surgical history, medications and allergies Tequila Hoffmann MD [facility] 04-01-2025 [facility] Tele[facility] (OBGYWM) JENNI MERINO ([id number]) 1975 F Date Time Provider Department 04/01/25 TEQUILA MARCH During your visit today, we recorded the following information about you: Clara Isabel RN 04/01/2025 4:49 PM Signed Patient calling stating she is unable to get her prescription of Aygestin 5 mg daily that was sent to the pharmacy yesterday. Patient states she has completed the previous prescription that was sent on 03/16 for a taper. She will take her last pill tonight and then will need to start a new prescription Called and spoke with pharmacist at [facility] and she states that insurance will not fill the prescription until 04/24. Explained to pharmacist that previous prescription was for a taper and that prescription is now finished and patient needs to start the new prescription of Aygestin 1 tab daily to suppress her bleeding until her surgery on 05/21. Pharmacist is going to call patients insurance and will call the office back. Back line number given. Clara Isabel RN Allergies As of Date: 04/01/2025 Noted Allergy Reaction ALBUTEROL 01/03/2023 12 - Shortness of Breath ACETAMINOPHEN 03/16/2015 2 - Rash Comments: Chen flavored. Date Reviewed: 03/25/2025 Reviewed by: Elen Rosas MA - Fully Assessed Reason for Visit: Medication Problem [65] Prescriptions as of 04/01/2025 - norethindrone (AYGESTIN) 5 mg tablet Take one tablet daily - SYMBICORT 160-4.5 mcg/actuation inhaler Inhale 1 puff as instructed two times a day. - sertraline (ZOLOFT) 50 mg tablet Take 50 mg by mouth once daily. - Epinastine HCl 0.05 % drop Use 1 drop in both eyes two times a day. - tranexamic acid (LYSTEDA) 650 mg tablet Take 2 tablets 3 times a day as needed for heavy bleeding up to 5 days. Problem List As Of Date: 04/01/2025 (None) Encounter Status:Closed by JOLEEN IZAGUIRRE on 04/01/25 [facility]ivani [facility] ([id number]) 1975 F Date Time Provider Department 03/26/25 TEQUILA MARCH OBGUME During your visit today, we recorded the following information about you: Joelen Izaguirre LPN 03/26/2025 2:31 PM Signed FYI: Patient called stating that she seen her facility practice specialist Dr. Monson today and has been cleared to have hysterectomy scheduled. Patient states that she has office notes from appointment that she will send through [employer]. Khushbu Cowan RN 03/30/2025 10:11 AM Addendum Received cardiology clearance note. Scanned into Noteleaf. Click on link below to review. Hard copy given to Morenita ivan too. Scan on 03/30/2025 9:05 AM by Provider, External, PANisaC: [facility] Office Note CATRACHO Delaney Annalee, LPN 03/31/2025 4:36 PM Addendum Patient is scheduled for surgery on 05/21/2025. Requesting refill of norethindrone. Tequila March MD 03/31/2025 4:43 PM Signed ordered Khushbu Cowan RN 03/31/2025 4:45 PM Signed It was supposed to go to [facility] in [place]. Please file again. CATRACHO Delaney Deidre, MD 03/31/2025 4:47 PM Signed ordered Allergies As of Date: 03/26/2025 Noted Allergy Reaction ALBUTEROL 01/03/2023 12 - Shortness of Breath ACETAMINOPHEN 03/16/2015 2 - Rash Comments: Chen flavored. Date Reviewed: 03/25/2025 Reviewed by: Elen Rosas MA - Fully Assessed Reason for Visit: Patient Update [1234] Order(s):norethindrone (AYGESTIN) 5 mg tabletTake one tablet dailyDisp: 30 tabletRfl: 1 Prescriptions as of 03/31/2025 - norethindrone (AYGESTIN) 5 mg tablet Take one tablet daily - SYMBICORT 160-4.5 mcg/actuation inhaler Inhale 1 puff as instructed two times a day. - sertraline (ZOLOFT) 50 mg tablet Take 50 mg by mouth once daily. - Epinastine HCl 0.05 % drop Use 1 drop in both eyes two times a day. - tranexamic acid (LYSTEDA) 650 mg tablet Take 2 tablets 3 times a day as needed for heavy bleeding up to 5 days. Problem List As Of Date: 03/26/2025 (None) Prescriptions ordered this encounter Disp Refills Start End NORETHINDRONE ACETATE 5 MG TABLET 30 t* 1 03/31/2025 03/31/2025 Sig: Take one tablet daily NORETHINDRONE ACETATE 5 MG TABLET 30 t* 1 03/31/2025 Sig: Take one tablet daily Medications Discontinued During This Encounter Prescriptions - norethindrone (AYGESTIN) 5 mg tablet (Discontinued) Take 1 tablet TID until bleeding stops for 24 hours, then 1 tablet BID x 3 days, then 1 tablet daily x 3 days. - norethindrone (AYGESTIN) 5 mg tablet (Discontinued) Take one tablet daily Encounter Status:Closed by KHUSHBU COWAN on 03/31/25 Normal [facility] CBC panel Auto (Bld)on 03-25 Erythrocyte distribution width (RBC) [Ratio] 17.6 % High 11.5 - 15.0 % [facility] Hematocrit (Bld) [Volume fraction] 36.2 % 36.0 - 46.0 % [facility] Hemoglobin (Bld) [Mass/Vol] 11.6 g/dL 11.5 - 15.5 g/dL [facility] Interpretation and review of laboratory results Abnormal [facility] MCH (RBC) [Entitic mass] 23.6 pg Low 26.0 - 34.0 pg [facility] MCHC (RBC) [Mass/Vol] 32 g/dL 30.5 - 36.0 g/dL [facility] MCV (RBC) [Entitic vol] 73.7 fL Low 80.0 - 100.0 fL [facility] Nucleated RBC (Bld) [#/Vol] NINF [facility] Platelet mean volume (Bld) [Entitic vol] 9.1 fL 9.0 - 12.7 fL [facility] Platelets (Bld) [#/Vol] 353 10*3/uL [facility] RBC (Bld) [#/Vol] 4.91 10*6/uL 3.90 - 5.2 0 m/uL [facility] WBC (Bld) [#/Vol] 9.55 10*3/uL [place] Erythrocyte distribution width (RBC) [Ratio] 17.6 % High 11.5-15.0 [facility] Comment on above: Order Comment: Speci men Type: BLOOD SPECIMENOrdering Facility: [facility] Address: [address] [place] [address] Performed By: #### 5 8410-2 ####[facility] [id number] [place] [address] [place] Hematocrit (Bld) [Volume fraction] 36.2 % Normal 36.0-46.0 [facility] Comment on above: Order Comment: Speci men Type: BLOOD SPECIMENOrdering Facility: [facility] Address: [address] [place] [address] Performed By: #### 5 8410-2 ####[facility] [id number] [place] [address] [place] Hemoglobin (Bld) [Mass/Vol] 11.6 g/dL Normal 11.5-15.5 [facility] Comment on above: Order Comment: Speci men Type: BLOOD SPECIMENOrdering Facility: [facility] Address: [address] [place] [address] Performed By: #### 5 8410-2 ####[facility] [id number] [place] [address] [place] MCH (RBC) [Entitic mass] 23.6 pg Low 26.0-34.0 [facility] Comment on above: Order Comment: Speci men Type: BLOOD SPECIMENOrdering Facility: [facility] Address: [address] [place] [address] Performed By: #### 5 8410-2 ####[facility] [id number] [place] [address] [place] MCHC (RBC) [Mass/Vol] 32.0 g/dL Normal 30.5-36.0 [facility] Comment on above: Order Comment: Speci men Type: BLOOD SPECIMENOrdering Facility: [facility] Address: [address] [place] [address] Performed By: #### 5 8410-2 ####[facility]ITAL[facility]CLIA [id number] [place] [address] [place] MCV (RBC) [Entitic vol] 73.7 fL Low 80.0-100.0 [facility] Comment on above: Order Comment: Speci men Type: BLOOD SPECIMENOrdering Facility: [facility] Address: [address] [place] [address] Performed By: #### 5 8410-2 ####[facility] [id number] [place] [address] [place] Nucleated RBC (Bld) [#/Vol] 10*3/uL Normal <0.01 [facility] Comment on above: Order Comment: Speci men Type: BLOOD SPECIMENOrdering Facility: [facility] Address: [address] [place] [address] Performed By: #### 5 8410-2 ####[facility] [id number] [place] [address] [place] Platelet mean volume (Bld) [Entitic vol] 9.1 fL Normal 9.0-12.7 [facility] Comment on above: Order Comment: Speci men Type: BLOOD SPECIMENOrdering Facility: [facility] Address: [address] [place] [address] Performed By: #### 5 8410-2 ####[facility] [id number] [place] [address] [place] Platelets (Bld) [#/Vol] 353 10*3/uL Normal 150-400 [facility] Comment on above: Order Comment: Speci men Type: BLOOD SPECIMENOrdering Facility: [facility] Address: [address] [place] [address] Performed By: #### 5 8410-2 ####[facility]IT[facility] [id number] [place] [address] [place] RBC (Bld) [#/Vol] 4.91 10*6/uL Normal 3.90-5.20 [facility] Comment on above: Order Comment: Speci men Type: BLOOD SPECIMENOrdering Facility: [facility] Address: [address] [place] [address] Performed By: #### 5 8410-2 ####[facility]ET[facility] ELKINSTOWNCLIA [id number] [place] [address] [place] WBC (Bld) [#/Vol] 9.55 10*3/uL Normal 3.70-11.00 [facility] Comment on above: Order Comment: Speci men Type: BLOOD SPECIMENOrdering Facility: [facility] Address: [address] [place] [address] Performed By: #### 5 8410-2 ####[facility] LORETTA ELKINSTOWNCLIA [id number] [address] [place] CNOVon 03-25-2025 CNOV Office Visit (OBGYWM ) JENNI MERINO ([id number]) 1975 F Date Time Provider Department 03/25/25 8:20 AM TEQUILA MARCH OBGYWCarlos During your visit today, we recorded the following information about you: Blood pressure Weight Height Last Period 136/92 116.6 kg 1.676 m 03/11/25 Tequila March MD 03/25/2025 11:37 AM Signed Subjective The patient is a 49-year-old female with a history of heavy menstrual bleeding and fibroids presenting for evaluation and management. Menstrual Irregularities - Reports a history of extremely heavy periods since age 10. - Currently experiencing heavy bleeding, which has calmed down to spotting over the last few days after starting Aygestin three days ago. - Reports crampy pain, especially on the right side, exacerbated by physical activity and lifting. - Has been on her feet for more than 6-7 hours a day, which increases her pain. - Has discussed the possibility of a hysterectomy versus fibroid removal with her clinician. - Expresses a preference for a hysterectomy, stating, I would rather just be done with it all, because it seems like when we get one thing straightened out, something else pops up. - Denies any abnormal Pap smears, though she mentions a benign finding after her second son. Perimenopausal Symptoms - Reports experiencing hot flashes and night sweats. Cardiac Issues - Has an enlarged artery, confirmed by an ultrasound. - Recently had a CT scan at [facility] and is scheduled to see her facility practice specialist, Dr. Crenshaw, tomorrow for further evaluation. - Has been under general anesthesia before and reports a history of difficulty waking up post-anesthesia. Genitourinary: (+) pelvic pain right side, (+) spotting Endocrine: (+) hot flashes, (+) night sweats Objective Blood pressure 136/92, height 167.6 cm (5' 6), weight 116.6 kg (257 lb), last menstrual period 03/11/2025. General: Height 5 feet 6 inches. : Uterine manipulation elicits pain on right side. Labs: (No diagnostics reported.) Tests: (2022) Pap smear: Normal result Imaging: CT at [facility] (performed last week): No official results discussed Ultrasound (performed a while back): Patient reports enlarged artery Pelvic Ultrasound: 4 cm submucosal fibroid identified 1. Abnormal uterine bleeding (N93.9) 2. Thickened endometrium (R93.89) 3. Submucous leiomyoma of uterus (D25.0) 4. Menorrhagia with irregular cycle (N92.1) - Experiencing significant improvement in bleeding with Aygestin, but still reports crampy pain, especially on the right side. - Discussed surgical options including hysterectomy and myomectomy. Patient prefers hysterectomy to address longstanding issues. - Educated on risks of hysterectomy including infection, bleeding, and injury to pelvic structures. Explained that ovaries would remain intact unless severely diseased or bleeding issues arise. - Advised patient to continue Aygestin until surgery. - Ordered CBC and thyroid function tests to be completed today. - Awaiting cardiac clearance from Dr Crenshaw, facility practice specialist, before proceeding with surgery. - Tentatively planning for laparoscopic hysterectomy at [facility], pending cardiology clearance. - Scheduled pre-op appointment to discuss risks, benefits, and alternatives, and to sign consent form. - Patient understands and agrees with the plan. 5. Generalized abdominal pain (R10.84) - Pain likely related to uterine conditions; will be addressed with planned surgical intervention. - Monitor for any changes or worsening symptoms. Cardiac imaging reviewed EMB reviewed- scant fragments of secretory Endometrium OR booking sheet- TLS, salpingectomy with cysto- will await cardiac clearance Attestation Recording using [employer]ur[employer] software for draft documentation of the visit was discussed with the patient/authorized mill representative; all questions welcomed and answered. Patient/authorized mill representative agreed to proceed Medical Decision Making: Problems: Moderate: 2+ stable chronic illnesses Data: Unique test result(s) reviewed: 2 Unique test(s) ordered: 2 Medical Decision Making Level: 4 - Moderate Tequila Ruano MD Referring Provider: SELF [200] Allergies As of Date: 03/25/2025 Noted Allergy Reaction ALBUTEROL 01/03/2023 12 - Shortness of Breath ACETAMINOPHEN 03/16/2015 2 - Rash Comments: Chen flavored. Date Reviewed: 03/25/2025 Reviewed by: Elen Rosas MA - Fully Assessed Reason for Visit: Discussion [813] Cmt: AUB and surgical options Primary Visit Diagnosis:Abnormal uterine bleeding [N93.9] Other Visit Diagnoses:Thickened endometrium [R93.89] Submucous leiomyoma of uterus [D25.0] Menorrhagia with irregular cycle [N92.1] Generalized abdominal pain [R10.84] Order(s):COMPLETE BLOOD COUNT [SQCBC] Order #: [id number] FU (more content not included)... Normal [facility] TSH SerPl-aCncon 03-25-2025 TSH Qn 1.250 m[IU]/L Normal 0.270-4.200 [facility] Comment on above: Order Comment: Speci men Type: BLOOD SPECIMENOrdering Facility: [facility] Address: [address] [place] [address] Result Comment: If t he patient is , TSH reference range varies by gestational period: First Trimester (weeks 9-12): 0.180-2.990 mIU/L Second Trimester: 0.110-3.980 mIU/L Third Trimester: 0.480-4.710 mIU/L Singh Weathers et al. A Practical Approach for the Verifications and Determination of Site- and Trimester-Specific Reference Intervals for Thyroid Function tests in . Thyroid, 2019:29:3:412-420. Lance Eisenberg, et al. 2017 Guidelines of the [place] Thyroid Association for the Diagnosis and Management of Thyroid Disease during and the . Thyroid, 2017:27:3:315-389. Performed By: #### 3 016-3 ####[facility]CLIA [id number] [address] STATES OF [facility] ED MED ADMINISTRATION DETAIL on 03-20-2025 ED MED ADMINISTRATION DETAIL Echo Tech Medication Administration Record [address] [address] [id number] 03/15/2025 Patient: JENNI MERINO Sex: Female : 1975 Age: 49y MEASUREMENTS: Wt: 116.1 kg, Ht/Grupo: 66.0 in, BMI: 41.32 ALLERGIES: albuterol, chen flavored tylenol Medication Ordered Medication Administration Date/Time 1 of 1 Normal [facility] ED NURSES CLINICAL NOTEon ED NURSES CLINICAL NOTE Nurse Narrative Nurse Clinical Narrative [address] [address] [id number] 03/15/2025 13:53:00 Patient: JENNI MERINO Sex: Female : 1975 Age: 49y Disposition: Discharge to Home Disposition Decision Time: 19:46 03/15/2025 Departure Time: 20:05 03/15/2025 TRIAGE Arrived by private vehicle. Historian: (patient). Accompanied by family. Patient has a primary care physician. Primary physician (karla). Triage time: 14:08 03/15/2025. Acuity: LEVEL 3. Chief Complaint: VAGINAL BLEED. ( vaginal bleeding started saturday. has fibroids and has an appointment with her OB on saturday. was told to come to the ER by her OB). SEPSIS SCREEN: NEGATIVE. SIRS criteria negative. No possible sources of infection. -- 14:14 03/15/25 RAY Matthews R.N. 14:03/15/25. BP: 162/96 MAP: 118. HR: 80. RR: 18. O2 saturation: 98% Temperature: 97.6 F. Pain level now 01/18. -- 14:03/15/25 RAY Matthews R.N. Measurements: 14:03/15/25 Wt: 116.1 kg, Ht/Grupo: 66.0 in, BMI: 41.32 -- 14:03/15/25 RAY Matthews R.N. Medications: Symbicort 160 mcg-4.5 mcg/actuation HFA aerosol inhaler: 1 puff once a day . -- 14:03/15/25 RAY Matthews R.N. 1 of 4 Nurse Narrative sertraline 50 mg tablet: 1 tablet once a day . -- 14:03/15/25 RAY Matthews R.N. tranexamic acid 650 mg tablet: 1300 mg three times a day as needed. -- 14:03/15/25 RAY Matthews R.N. Allergies: chen flavored tylenol -- 14:03/15/25 RAY Matthews R.N. albuterol -- 14:03/15/25 RAY Matthews R.N. Problems: uterine polyp -- 14:03/15/25 RAY Matthews R.N. enlarged artery in heart -- 14:03/15/25 RAY Matthews R.N. Asthma -- 14:03/15/25 RAY Matthews R.N. Surgeries: bone removed from toe -- 14:03/15/25 RAY Matthews R.N. Tonsillectomy -- 14:03/15/25 RAY Matthews R.N. Dental Work -- 14:03/15/25 RAY Matthews R.N. History 14:08 03/15/25. SOCIAL HX: Never smoker. No alcohol use or drug use. The patient has not traveled outside the [place] Infectious disease exposure: No infectious disease exposure. ABUSE ASSESSMENT: Abuse denied. SELF HARM ASSESSMENT: Self harm assessment was performed. The patient answered no to the question(s) Do you have thoughts of harming or killing yourself? and Do you have a plan for harming or killing yourself?. FALL RISK ASSESSMENT: Fall risk assessment completed. No risk factors identified. -- 14:14 03/15/25 RAY Matthews R.N. Interventions 14:08 03/15/25. Advanced care plan discussed with patient. Patient does not have advanced directive. -- 14:03/15/25 RAY Matthews R.N. 2 of 4 Nurse Narrative PHYSICAL ASSESSMENT 14:28 03/15/25. BP: 166/92 MAP: 132 mmHg. HR: 74 bpm. -- 15:02 03/15/25 RAY Valles R.N. 14:31 03/15/25. HR: 76 bpm. O2 saturation: 97%. -- 15:02 03/15/25 RAY Valles R.N. 15:00 03/15/25. Ambulatory to room. ( Vaginal bleeding x3 days. Hx of fibroids.). GENERAL / NEURO / PSYCH: Alert. Oriented X 4. Appears in no acute distress. HEENT: Mucous membranes are pink. RESPIRATORY: Respirations not labored. Breath sounds within normal limits. CVS: Normal heart rate and rhythm. Capillary refill less than 2 seconds. GI / : Abdomen soft and nontender. Bowel sounds within normal limits. Moderate vaginal bleeding present .1 pad per hour. SKIN: Skin is warm and dry. -- 15:02 03/15/25 RAY Valles R.N. NURSING PROGRESS NOTES 14:58 03/15/25. Call light placed in reach. Side rails up x 2. Bed placed in lowest position. Brakes of bed on. -- 15:03 03/15/25 RAY Valles R.N. 14:58 03/15/25. [facility] -- 15:13 03/15/25 EDT Velma Park R.N. 14:59 03/15/25. Care transferred and report given (Velma RN). -- 15:09 03/15/25 EDT Anya Valles R.N. 18:03 03/15/25. PELVIC EXAM: Pelvic exam performed by ED physician. Assisted by two nurses. Procedure: speculum exam. Light amount of vaginal bleeding noted. Status post-procedure: the patient was stable and no complications were noted. Patient tolerated the procedure well. Total time of assist / procedure: 15 minutes. -- 18:03 03/15/25 EDT Velma Park R.N. 18:47 03/15/25. 12-LEAD EKG: EKG time: (18:17 03/15/2025). 12-Lead EKG was performed by me and shown to the ED physician. -- 18:47 03/15/25 EDT Nellie Rivera DISPOSITION / DISCHARGE Departure time: 20:05 03/15/2025. Condition at departure: improved and stable. No learning barriers present. Discharge instructions provided and reviewed with the patient and spouse. The patient was discharged home and accompanied by spouse. The patient left ambulatory and via private vehicle. -- 20:05 03/15/25 EDT Leandro Conklin R.N. (Electronically signed by Velma Park, (more content not included)... Normal [facility] ED ORDER SHEET (CPOE ONLY)on 03-20-2025 ED ORDER SHEET (CPOE ONLY) Order Sheet Order Sheet [address] [place] [address] [id number] 03/15/2025 Patient: JENNI MERINO Sex: Female : 1975 Age: 49y MEASUREMENTS: Wt: 116.1 kg, Ht/Grupo: 66.0 in, BMI: 41.32 ALLERGIES: albuterol, chen flavored tylenol MEDICATION/IV/DRIP/FLU ID ORDERS Order Description Priority Entered Acknowledged Completed LAB ORDERS Order Description Priority Entered Acknowledged Collected Completed CBC w Diff Stat Stat 13:55 03/15/2025 14:36 03/15/2025 15:03 03/15/2025 Anya Mendez M.D., R.N. [place], R.N. PT with INR Stat Stat 13:55 03/15/2025 14:36 03/15/2025 15:03 03/15/2025 Anya Mendez M.D., R.N. [place], R.N. PTT Stat Stat 13:55 03/15/2025 14:36 03/15/2025 15:03 03/15/2025 Anya Mendez M.D., R.N. [place], R.N. Blood Bank Order Stat Stat 13:55 03/15/2025 14:36 03/15/2025 15:03 03/15/2025 Anya Mendez 1 of 3 Order Sheet Juan Daniel Castellanos R.N. CMP Stat Stat 13:55 03/15/2025 14:36 03/15/2025 15:03 03/15/2025 Anya Mendez M.D., R.N. [place], R.N. Beta-HCG, Quant Stat 14:15 03/15/2025 14:36 03/15/2025 15:03 03/15/2025 Serum Stat Anya Mendez M.D., R.N. [place], R.N. Urinalysis Stat Stat 14:20 03/15/2025 14:36 03/15/2025 15:03 03/15/2025 Anya Mendez M.D., R.N. [place], R.N. Troponin-I Stat Stat 17:59 03/15/2025 18:04 03/15/2025 18:04 03/15/2025 Velma Mendez R.N. Tessa Miller, R.N. M.D. EKG - ED Stat Stat 17:59 03/15/2025 18:23 03/15/2025 18:23 03/15/2025 Velma Mendez R.N. Tessa Miller, R.N. M.D. DIAGNOSTIC STUDY ORDERS Order Description Priority Entered Acknowledged Completed US Pelvis Endo Vag Stat Stat 14:15 03/15/2025 14:36 18:04 Sagar Casanova M.D. 03/15/2025 03/15/2025 Hai Prather R.N. R.N. Order Comments: 14:15 03/15/2025: Status: Not . Sagar Casanova M.D. Reason for Study: Abnormal Bleeding US OB<14WK Single Gestation Stat 17:05 03/15/2025 Cancelled: Wrong Order 2 of 3 Order Sheet Stat Sagar Casanova M.D. 17:13 EDT Sagar Casanova M.D. Reason for Study: pre op STAFF ORDERS Order Description Priority Entered Acknowledged Collected Completed [Electronically signed by Sagar Casanova M.D. (03/15/2025 19:55 EDT)] 3 of 3 Normal [facility] ED PHYSICIAN CLINICAL REPORT on 03-20-2025 ED PHYSICIAN CLINICAL REPORT Narrative Physician Clinical Narrative [address] [address] [id number] 03/15/2025 13:53:00 Patient: JENNI MERINO Sex: Female : 1975 Age: 49y Disposition: Discharge to Home Disposition Decision Time: 19:46 03/15/2025 Measurements Wt: 116.1 kg, Ht/Grupo: 66.0 in, BMI: 41.32 Initial Vital Sign Measured Time BP MAP HR RR O2Sat ETCO2 Temp Pain GCS RTS 14:13 03/15/2025 162/96 118 80 18 98% 97.6 F 3 Time Seen: 13:55 03/15/2025. HISTORY OF PRESENT ILLNESS Chief Complaint: VAGINAL BLEEDING. This started November 30, 2024. Worsened 3 days ago. The patient has had pelvic pain and abnormal bleeding. No abdominal pain, vaginal pain, low back pain, flank pain or pain with urination. No urinary frequency, urgency of urination or hematuria. (Patient presents with a chief complaint of worsening abnormal uterine bleeding. Has known fibroids and a increased endometrial stripe. 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 She has had intermittent bleeding since November 30 of this year and she has been given oral TXA. Has a history of iron deficiency anemia but can not take her iron. States her baseline hemoglobin is still 13 or 14. She can not recall specific of the last time this was checked. She was sent in specifically for concern for anemia as she has had some fatigue, weakness and lightheadedness with ambulation. Nothing well laying still. States she is passing enough blood that she is saturating 1 heavy pad an hour with ambulation and every 2 hours with lying still. States it is the worse the bleeding has ever been. She also has suprapubic pain for the 1st time ever.). 1 of 16 Narrative REVIEW OF SYSTEMS All other systems reviewed and are negative. Status: Not . PAST HISTORY See nurses notes. Asthma enlarged artery in heart uterine polyp Surgeries: bone removed from toe Dental Work Tonsillectomy Medications: sertraline 50 mg tablet: 1 tablet once a day . Symbicort 160 mcg-4.5 mcg/actuation HFA aerosol inhaler: 1 puff once a day . tranexamic acid 650 mg tablet: 1300 mg three times a day as needed. Allergies: albuterol chen flavored tylenol ADDITIONAL NOTES The nursing notes have been reviewed. PHYSICAL EXAM Vital Signs: Have been reviewed. Appearance: No acute distress. HEENT: Normal external inspection. ENT: Pharynx normal. Neck: Neck supple. 2 of 16 Narrative CVS: Heart sounds normal. Respiratory: No respiratory distress. Painless inspiration. Breath sounds normal. Chest nontender. Abdomen: Soft. Mild tenderness in the suprapubic area and lower abdomen. Back: No CVA tenderness. : Slight vaginal bleeding, consisting of dark blood, via the cervical os. No vaginal discharge. Cervical os closed. No tissue present. No cervicitis. No herpes-like lesions. Adnexal tenderness. Skin: Skin warm. Normal skin color. No rash. Normal skin turgor. Extremities: Extremities nontender. No lower extremity edema. Neuro: Oriented X 3. Mood/affect normal. No motor deficit. No weakness. No sensory deficit. No sensory deficit. LABS, X-RAYS, AND EKG 12-LEAD EKG: EKG shows sinus rhythm. One P-wave for every QRS 1 QRS for every P-wave. WA, QRS, QTC intervals are unremarkable. Left axis deviation noted. No ST segment elevation or depression. Unremarkable T-waves. Laboratory Tests: APTT Final JAY: 03/15/2025 14:45:00 EDT MsgRcvd: 03/15/2025 15:37 EDT Lab Test Result Reference Status Received Comments 03/15/2025 15:37 PTT 28.4 sec 25.4 - 38.4 Final EDT BB ABO RH Final JAY: 03/15/2025 14:45:00 EDT MsgRcvd: 03/15/2025 15:44 EDT Lab Test Result Reference Status Received Comments 03/15/2025 15:44 BB ABO RH Final BLOOD GROUP EDT 03/15/2025 15:44 ABO AB Final EDT 3 of 16 Narrative Lab Test Result Reference Status Received Comments 03/15/2025 15:44 Rh POS Final EDT CBC + DIFF Final JAY: 03/15/2025 14:45:00 EDT MsgRcvd: 03/15/2025 15:15 EDT Lab Test Result Reference Status Received Comments 03/15/2025 15:15 CBC-COMPLETE CBC + DIFF Final EDT BLOOD COUNT 03/15/2025 15:15 WBC 9.3 x 10/UL 4.5 - 10.8 Final EDT 03/15/2025 15:15 RBC 4.94 x 10/UL 4.10 - 5.30 Final EDT 03/15/2025 15:15 HEMOGLOBIN 12.1 g/dl 12.0 - 16.0 Final EDT 03/15/2025 15:15 HEMATOCRIT 35.7 % 34.0 - 46.0 Final EDT 72 fl 03/15/2025 15:15 MCV 80 - 99 Final Below low normal EDT 24 pg 03/15/2025 15:15 MCH 27 - 33 Final Below low normal EDT 03/15/2025 15:15 MCHC 34 X10 3 32 - 36 Final EDT 17.4 % 03/15/2025 15:15 RDW/CV 12.0 - 15.6 Final Above high normal EDT 0 (more content not included)... Normal [facility] ED SUPER BILLon 03-20-2025 ED [facility] [address] [address] [id number] 03/15/2025 Patient: JENNI MERINO Sex: Female : 1975 Age: 49y Item Professional Category Description Facility Code Code Quantity Fee Total Nurse/E/M EMERGENCY 540495 1 $0.00 $0.00 DEPARTMENT VISIT HIGH/URGENT SEVERITY (81044-53) Grand Total $0.00 Providers Sagar Casanova M.D. Chief Complaint VAGINAL BLEEDING. Principal Diagnosis Abnormal uterine bleeding. 1 of 1 Normal [facility] ED VISIT SUMMARYon ED VISIT SUMMARY Visit Overview Visit Overview [address] [address] [id number] 03/15/2025 Patient: JENNI MERINO Sex: Female : 1975 Age: 49y 03/20/2025 09:48 AM EDT ED Arrival:13:53 03/15/2025 EDT Status:not Recent Travel: Language:eng Adv Directive: Isolation Status: Ethnicity:N Fall Risk: Infectious Disease Exposure: Measurements:5'6 / 167.6 Self-Harm Status: Sepsis Screen: cm 256.0 lb / 116.1 kg Chief Complaint: ALLERGIES albuterol chen flavored tylenol HOME MEDICATIONS sertraline 50 mg tablet: 1 tablet once a day . Symbicort 160 mcg-4.5 mcg/actuation HFA aerosol inhaler: 1 puff once a day . tranexamic acid 650 mg tablet: 1300 mg three times a day as needed. PAST MEDICAL HISTORY / PROBLEMS Asthma 1 of 3 Visit Overview See nurses notes uterine polyp PAST SURGICAL HISTORY bone removed from toe Dental Work Tonsillectomy SOCIAL HISTORY ED COURSE MEDICATIONS GIVEN IN EMERGENCY DEPARTMENT IV SITE INFORMATION INTAKE OUTPUT REASSESMENT (most recent) VITAL SIGNS First Vitals Last Vitals Temp 14:13 03/15/25 97.6 F Temp 19:55 03/15/25 BP 14:13 03/15/25 162/96 BP 19:55 03/15/25 HR 14:13 03/15/25 80 HR 19:55 03/15/25 68 RR 14:13 03/15/25 18 RR 19:55 03/15/25 O2 Sat 14:13 03/15/25 98% O2 Sat 19:55 03/15/25 100% Pain 14:13 03/15/25 3 Pain 19:55 03/15/25 ETCO2 14:13 03/15/25 ETCO2 19:55 03/15/25 GCS 14:13 03/15/25 GCS 19:55 03/15/25 RTS 14:13 03/15/25 RTS 19:55 03/15/25 PROCEDURES NURSING INTERVENTIONS LABS / STUDIES 2 of 3 Visit Overview LABS / STUDIES ORDERED Beta-HCG, Quant Serum Blood Bank Order CBC w Diff CMP EKG - ED PT with INR PTT Troponin-I Urinalysis US Pelvis Endo Vag CLINICAL IMPRESSION 3 of 3 Normal [facility] ED VITALS FLOW SHEETon 03-20 ED VITALS FLOW SHEET Vitals Vital Sign Flow Sheet [address] [address] [id number] 03/15/2025 Patient: JENNI MERINO Sex: Female : 1975 Age: 49y Measurements Wt: 116.1 kg, Ht/Grupo: 66.0 in, BMI: 41.32 Measured Time BP MAP HR RR O2Sat ETCO2 Temp Pain GCS RTS 19:55 03/15/2025 68 100% 19:50 03/15/2025 68 98% 19:45 03/15/2025 62 99% 19:43 03/15/2025 163/102 116 62 19:40 03/15/2025 67 97% 19:35 03/15/2025 68 99% 19:30 03/15/2025 65 97% 19:28 03/15/2025 141/85 114 70 19:25 03/15/2025 67 99% 19:24 03/15/2025 144/85 104 68 17:45 03/15/2025 74 98% 17:43 03/15/2025 168/99 113 69 17:40 03/15/2025 75 99% 17:35 03/15/2025 71 97% 17:30 03/15/2025 70 98% 1 of 3 Vitals Measured Time BP MAP HR RR O2Sat ETCO2 Temp Pain GCS RTS 17:28 03/15/2025 152/94 118 66 17:25 03/15/2025 70 98% 17:20 03/15/2025 66 97% 17:15 03/15/2025 69 98% 17:13 03/15/2025 163/89 113 70 17:10 03/15/2025 73 99% 17:05 03/15/2025 71 99% 17:00 03/15/2025 71 98% 16:57 03/15/2025 148/96 106 66 16:55 03/15/2025 72 97% 16:50 03/15/2025 70 97% 16:45 03/15/2025 69 98% 16:43 03/15/2025 141/78 106 65 16:40 03/15/2025 70 98% 16:35 03/15/2025 70 97% 16:30 03/15/2025 69 97% 16:28 03/15/2025 171/87 119 66 16:25 03/15/2025 68 98% 16:20 03/15/2025 74 97% 16:15 03/15/2025 69 98% 16:13 03/15/2025 134/88 114 70 16:10 03/15/2025 70 98% 16:05 03/15/2025 73 95% 16:00 03/15/2025 70 97% 15:57 03/15/2025 154/103 114 66 2 of 3 Vitals Measured Time BP MAP HR RR O2Sat ETCO2 Temp Pain GCS RTS 15:55 03/15/2025 72 96% 15:50 03/15/2025 71 98% 15:45 03/15/2025 75 98% 15:43 03/15/2025 151/78 107 69 15:40 03/15/2025 70 98% 15:35 03/15/2025 69 97% 15:30 03/15/2025 71 98% 15:28 03/15/2025 145/83 103 67 15:07 03/15/2025 71 98% 15:02 03/15/2025 77 92% 14:58 03/15/2025 170/101 124 66 14:57 03/15/2025 73 100% 14:56 03/15/2025 71 100% 14:51 03/15/2025 74 100% 14:46 03/15/2025 78 99% 14:43 03/15/2025 177/101 128 77 14:41 03/15/2025 80 98% 14:36 03/15/2025 77 97% 14:31 03/15/2025 76 97% 14:28 03/15/2025 166/92 132 74 14:26 03/15/2025 79 97% 14:21 03/15/2025 78 96% 14:13 03/15/2025 162/96 118 80 18 98% 97.6 F 3 3 of 3 Normal [facility] CNCOon 03-19-2025 CNCO Letter Text Normal [facility] CNOVon 03-19-2025 CNOV Office Visit (OBGYWM ) DANIELVIGNESHJENNI URIOSTEGUI ([id number]) 1975 F Date Time Provider Department 03/19/25 9:30 AM KAYLAH DEL TORO During your visit today, we recorded the following information about you: Blood pressure Weight 128/84 117.7 kg Kaylah Del Toro APRN.PATTERN ASSEMBLER 03/19/2025 9:57 AM Signed Patient declined new grad rnAdolfo Arteaga is a 49 year old who presents today for an endometrial biopsy for abnormal uterine bleeding. test: negative UNIVERSAL PROTOCOL / SAFETY CHECKLIST Procedure to be Performed: Endometrial Biopsy Sign In: A Moment of CARE was completed. Appropriate PPE (Personal Protective Equipment) worn by all providers involved with the procedure. Special equipment not required. Patient/Surrogate Stated/Verified: Patient name, Date of , Relevant allergies, and The intended procedure Time Out: Relevant labs, photos, and/or imaging studies have been reviewed. Intended patient and procedure match the source document(s) (e.g. consent, HANDP, associated studies [imaging, pathology]) match the intended patient and procedure. Consent obtained and matches the intended procedure. Yes. Correct side/site is not applicable. Medications required for this procedure are verified. Fire risk assessed and is not applicable. Implants: are not applicable. Sign Out: Specimens are all correctly labeled and sent. All instruments, equipment, possible retained foreign bodies are accounted for. Yes. The post-procedure plan of care has been communicated to the patient or surrogate. PROCEDURE: EXTERNAL GENITALIA: Normal in appearance without lesions VAGINA: Normal in appearance without lesions BIOPSY: Speculum placed into the vagina with excellent visualization of the cervix. Cervix cleaned with betadine. Anterior lip of cervix grasped with single toothed tenaculum. Uterus sounded to 10 cm. Pipelle inserted into the uterus without difficulty and endometrial biopsy obtained. Specimen labeled and sent to pathology. Hemostasis achieved. Procedure Summary: Patient tolerated procedure well. ASSESSMENT: abnormal uterine bleeding PLAN: Will notify patient of results in 1-2 weeks. Kaylah Del Toro APRN.Francoise Valiente LPN 03/19/2025 9:14 AM Signed YOUR RECOVERY After your biopsy you may have: Vaginal bleeding (less than a normal menstrual period) Mild cramping Do NOT put anything in the vagina for 1 week after your endometrial biopsy. This includes: tampons douches and refraining from having sexual intercourse If you have any discomfort, you may take an over the counter pain medication (motrin, advil, ibuprofen, tylenol, etc). If this does not relieve your discomfort, contact the office. It is okay to wear a sanitary pad until the discharge and spotting stops. RISKS Although problems seldom occur with endometrial biopsies, there can be some complications. You may feel faint during and shortly after the procedure as well as have some bleeding after the procedure. There is also a risk of infection after the procedure. These complications are rare and can be easily treated. You should contact you doctor is you have any of the following: Heavy bleeding (more than your normal period) Bleeding with clots Severe abdominal pain Fever (more than 100.4F) Foul smelling vaginal discharge RESULTS We will have the results of your biopsy in 1-2 weeks. If you do not hear the results of your biopsy after 2 weeks, please contact the office for the results. If you have any additional questions or concerns please do not hesitate to contact the office. Referring Provider: KAYLAH DEL TORO [[id number]] Allergies As of Date: 03/19/2025 Noted Allergy Reaction ALBUTEROL 01/03/2023 12 - Shortness of Breath ACETAMINOPHEN 03/16/2015 2 - Rash Comments: Chen flavored. Date Reviewed: 03/19/2025 Reviewed by: Francoise Linn LPN - Fully Assessed Reason for Visit: Endometrial Biopsy [7501] Primary Visit Diagnosis:Abnormal uterine bleeding [N93.9] Order(s):ENDOMETRIAL BIOPSY [7057419] Order #: [id number] SURGICAL PATHOLOGY [[facility]0104] Order #: [id number] UA DIP,URINE HCG (POC) [1624536] Order #: [id number]. #:[id number] Prescriptions as of 03/19/2025 - norethindrone (AYGESTIN) 5 mg tablet Take 1 tablet TID until bleeding stops for 24 hours, then 1 tablet BID x 3 days, then 1 tablet daily x 3 days. - SYMBICORT 160-4.5 mcg/actuation inhaler Inhale 1 puff as instructed two times a day. - sertraline (ZOLOFT) 50 mg tablet Take 50 mg by mouth once daily. - Epinastine HCl 0.05 % drop Use 1 drop in both eyes two times a day. - tranexamic acid (LYSTEDA) 650 mg tablet Take 2 tablets 3 times a day as needed for heavy bleeding up to 5 days. Problem List As Of Date: 03/19/2025 (None) Other instructions from your clinician: YOUR RECOVERY After you (more content not included)... Normal [facility] Pathology biopsy report Alferd (Tiss)on 03-19-2025 AP DISCLAIMER Normal [facility] Comment on above: Order Comment: Speci men Type: TISSUE SPECIMENOrdering Facility: [facility] Address: [address] [place] [address] Result Comment: Kristen stovall Developed Test (LDT) Disclaimer: Performance characteristics of immunohistochemical, immunofluorescent, and chromogenic in-situ hybridization tests have been determined by the performing laboratory within [facility]'s [place] Pathology and Laboratory Medicine Department ([facility], [facility], [facility], [facility], [facility], [facility], or [facility]) in a manner consistent with CLIA requirements. One or more of these tests may not have been cleared or approved by the FDA. RT-PLM is regulated under CLIA as qualified to perform high-complexity testing. These tests are used for clinical purposes. These should not be regarded as investigational or for research. Positive and negative controls stain appropriately. Performed By: #### 6 6121-5 ####[facility] LABIA [id number] [place] [address] [place] CASE REPORT Normal [facility] Comment on above: Order Comment: Speci men Type: TISSUE SPECIMENOrdering Facility: [facility] Address: [address] [place] [address] Result Comment: Surg ica Pathology Report Case: [id number] Authorizing Provider: Kaylah Del Toro APRN.PATTERN ASSEMBLER Collected: 03/19/2025 10:20 AM Ordering Location: OB/Gynecology Received: 03/19/2025 12:25 PM Pathologist: Ap Maldonado MD Specimen: Endometrium, Biopsy Performed By: #### 6 6121-5 ####[facility] LABIA [id number] [address] [address] [place] CLINICAL HISTORY AUB Normal [facility] Comment on above: Order Comment: Speci men Type: TISSUE SPECIMENOrdering Facility: [facility] Address: [address] [place] [address] Performed By: #### 6 6121-5 ####[facility] LABIA [id number] [place] [id number] [place] FINAL DIAGNOSIS Normal [facility] Comment on above: Order Comment: Speci men Type: TISSUE SPECIMENOrdering Facility: [facility] Address: [address] [place] [address] Result Comment: A. E ndometrium, biopsy - Very scant fragments of secretory endometrium with stromal breakdown, suboptimal for evaluation of endometrium - Fragments of benign endocervix at 1649 EDT Performed By: #### 6 6121-5 ####[facility] LABCLIA [id number] [address] [address] [place] FINAL PERFORMING LAB Normal [facility] Comment on above: Order Comment: Speci men Type: TISSUE SPECIMENOrdering Facility: [facility] Address: [address] [place] [address] Result Comment: Diag nostic interpretation performed at: [facility], [address] [place] [address] CLIA# [id number] Front End Architect: Sheldon Russ MD Performed By: #### 6 6121-5 ####[facility] LABCLIA [id number] [place] [address] [place] GROSS DESCRIPTION Normal [facility] Comment on above: Order Comment: Speci men Type: TISSUE SPECIMENOrdering Facility: [facility] Address: [address] [place] [address] Result Comment: A. E ndometrium, Biopsy Received in formalin are multiple juarez-red, soft feathery segments of tissue aggregating to 2.5 x 2.0 x 0.5 cm. Totally submitted in one cassette. Gross examination performed at [facility], [address] [place] [address] March 19, 2025 6:09 PM Performed By: #### 6 6121-5 ####[facility] LABCLIA [id number] [address] [address] [place] UA DIP,URINE HCG (POC)on Beta HCG ( test) Ql (U) Negative Negative [facility] Comment on above: Location:[facility], [address] [facility], [place], [address] Assorter (POCT) Internal QC OK [facility] Location:[facility], [address], [place], [address] [facility] POINT OF CARE [facility] CTA CORONARY W IVCONon 03-18 CTA CORONARY W IVCON * * *Final Report* * * DATE OF EXAM: Mar 18 2025 9:28AM [facility] 0470 - CTA CORONARY W IVCON / PROCEDURE REASON: R07.9, I71.21; R06.02, E66.9 * * * * Physician Interpretation * * * * CTA Cardiac - Coronary: 03/18/2025 9:28 AM. Comparison: None. History: 49 years old Female with chest pain and suspected coronary artery disease. Indication: There is clinical need to define coronary anatomy. Technique: Multi-detector CT technology was employed (siemens scanner). Retrospective protocol and minimal slice thickness was performed of the chest following the IV administration of contrast material. A low-osmolar contrast agent was used (150 cc of Omnipaque 350). The patient was premedicated with beta blockers for heart rate control, and 0.3 mg sublingual nitroglycerin for coronary dilation. CT Dose-Length Product (DLP): 1086 mGy*cm CT Dose Reduction Employed: Yes For optimization of anatomic evaluation, multiplanar reconstruction, maximum intensity projections, and advanced 3-D off-line postprocessing were performed on a dedicated stand-alone workstation by the interpreting physician. RESULT: Potential study limitations: None. CHEST: The imaged chest wall is unremarkable. The imaged mediastinum is unremarkable. There is no significant adenopathy noted in the axillae, mediastinum, and aleena. The imaged pericardium appears normal. The imaged pulmonary arteries appear normal (main PA: 3 cm). The imaged lung windows: Reveal no acute abnormalities. There is no abnormal pulmonary parenchymal mass, infiltrate, or pleural effusion. The cardiac chambers have normal atrioventricular and ventriculoarterial concordance, and systemic and pulmonary venous return. The cardiac chamber sizes are normal. LVEF= 73% . VASCULAR WITH ADVANCED 3-D OFF-LINE POSTPROCESSING: The aortic valve is tricuspid valvewith normal function. The aortic root is 3.8 cm. The sinotubular junction is 2.8 cm. The imaged ascending thoracic aorta : 3.8 cm. The aortic arch is not included in this study. The imaged descending thoracic aorta is 2.2 cm and imaged proximal abdominal aorta: 2.2 cm. There is no acute aortic pathology, such as dissection, intramural hematoma, or contained rupture. CORONARY ANATOMY: CALCIUM SCORE: The observed Agatston Calcium Score of 0. Per vessel Agatston score is as follows: LM - Number of lesions: 0 / Calcium score: 0. LAD - Number of lesions: 0 / Calcium score: 0. RCA - Number of lesions: 0 / Calcium score: 0. LCx - Number of lesions: 0 / Calcium score: 0. Origins: Normal coronary artery origins. Left Main Coronary Artery: The LM is a normal sized vessel that divides into the LADand circumflex. There is no significant atherosclerotic change or stenotic disease. Left Anterior Descending Coronary Artery: The LAD is a normal sized vessel that wraps around the apex. It gives rise to one acute diagonal branches. There is no significant atherosclerotic change or stenotic disease. Left Circumflex Coronary Artery: The LCX is a normal sized vessel, which is non-dominant. It gives rise to one obtuse marginal branches. There is no significant atherosclerotic change or stenotic disease. Right Coronary Artery: The RCA is a normal sized vessel, which is dominant. It gives rise to a small conus, and a SA smooth branch, and one acute marginal branches. In its distal segment it bifurcates into a PDA and RPL branch. There is no significant atherosclerotic change or stenotic disease. PROXIMITY OF THE CARDIOVASCULAR STRUCTURES TO THE STERNUM: The left brachio-cephalic vein lies 1.2 cm behind the upper-manubrium sternum. The aorta lies 2.7 cm behind the upper sternum. The RV myocardium lies immediately behind the lower sternum. ABDOMEN: The limited images of the upper abdomen reveal no abnormalities of the imaged organs. IMPRESSION: 1. Normal coronary anatomy without significant atherosclerotic changes or stenotic disease. Right dominant system. 2. The imaged thoracic aorta is normal in course, caliber, and contour. 3. Coronary calcium score is 0. 4. CAD-RAD2 is 0 . The cardiac portion of the study was interpreted by Dr. Mandel from cardiology Department, and the extracardiac portion was interpreted by Dr. Diaz from the Radiology department. School Psychology Professor: SUSHIL Transcribe Date/Time: Mar 19 2025 4:24P Dictated by : SE DIAZ DO This examination was interpreted and the report reviewed and electronically signed by: SE DIAZ DO on Mar 20 2025 8:30AM EST [id number] Normal [facility] APTTon 03-15-2025 aPTT Coag (Bld) [Time] 28.4 s Normal 25.4 - 38.4 [facility] Comment on above: Performed By: #### 2 03583 #### [facility],[address] [place] [address] BB ABO RHon 03-15-2025 ABO AB Normal [facility] Comment on above: Performed By: #### 2 55040 #### [facility],[address] [place] [address] ABO and Rh group Nom (Bld) Normal [facility] Comment on above: Result Comment: BLOO D GROUP Performed By: #### 2 35194 #### [facility],[address] [place] [address] Rh Nom (Bld) Positive Normal [facility] Comment on above: Performed By: #### 2 48096 #### [facility],[address] [place] [address] CBC + DIFFon 03-15-2025 Baso # 0.05 x10EE3/UL Normal 0.00 - 0.10 [facility] Comment on above: Performed By: #### 2 14248 #### [facility],[address] [place] [address] Basophils/100 WBC (Bld) 0.5 % Normal 0.0 - 2.0 [facility] Comment on above: Performed By: #### 2 61538 #### [facility],[address] [place] [address] CBC + DIFF Normal [facility] Comment on above: Result Comment: CBC- COMPLETE BLOOD COUNT Performed By: #### 2 42890 #### [facility],[address] [place] [address] EO # 0.13 x10EE3/UL Normal 0.00 - 0.50 [facility] Comment on above: Performed By: #### 2 58551 #### [facility],[address] [place] [address] Eosinophils/100 WBC (Bld) 1.4 % Normal 0.0 - 7.0 [facility] Comment on above: Performed By: #### 2 26618 #### [facility],[address] [place] [address] Erythrocyte distribution width (RBC) [Ratio] 17.4 % High 12.0 - 15.6 [facility] Comment on above: Performed By: #### 2 66166 #### [facility],[address] [place] [address] Hematocrit (Bld) [Volume fraction] 35.7 % Normal 34.0 - 46.0 [facility] Comment on above: Performed By: #### 2 36283 #### [facility],[address] [place] [address] Hemoglobin (Bld) [Mass/Vol] 12.1 g/dL Normal 12.0 - 16.0 [facility] Comment on above: Performed By: #### 2 00153 #### [facility],[address] [place] [address] Lymph # 2.40 x10EE3/UL Normal 0.80 - 2.80 [facility] Comment on above: Performed By: #### 2 14382 #### [facility],[address] [place] [address] Lymphocytes/100 WBC (Bld) 25.7 % Normal 20.0 - 45.0 [facility] Comment on above: Performed By: #### 2 45142 #### [facility],[address] [place] [address] MANUAL DIFF N/A Normal [facility] Comment on above: Performed By: #### 2 97102 #### [facility],[address] [place] [address] MCH (RBC) [Entitic mass] 24 pg Low 27 - 33 [facility] Comment on above: Performed By: #### 2 56354 #### [facility],[address] [place] [address] MCHC 34 X10 3 Normal 32 - 36 [facility] Comment on above: Performed By: #### 2 98556 #### [facility],[address] [place] [address] MCV (RBC) [Entitic vol] 72 fL Low 80 - 99 [facility] Comment on above: Performed By: #### 2 86932 #### [place] [address] [place] # 0.63 x10EE3/UL Normal 0.20 - 1.00 [facility] Comment on above: Performed By: #### 2 39903 #### [facility],[address] [place] [address] MONOS % 6.7 % Normal 0.0 - 10.0 [facility] Comment on above: Performed By: #### 2 58313 #### [facility],[address] [place] [address] Morphology Alfred (Bld) [Interp] N/A Normal [facility] [facility] Comment on above: Performed By: #### 2 59203 #### [place] [address] Neut # 6.11 x10EE3/UL Normal 1.50 - 7.10 [facility] Comment on above: Performed By: #### 2 37549 #### [place] [address] Neutrophils/100 WBC (Bld) 65.7 % Normal 46.0 - 76.0 [facility] Comment on above: Performed By: #### 2 79771 #### [place] [address] PLATELET 384 x10EE3/UL Normal 150 - 450 [facility] Comment on above: Performed By: #### 2 28904 #### [facility],[address] [place] [address] 78113 Platelet mean volume (Bld) [Entitic vol] 8.3 fL Normal 6.6 - 10.5 [facility] Comment on above: Result Comment: AUTO MATED DIFFERENTIAL Performed By: #### 2 17625 #### [facility],[address] [place] [address] 96402 RBC 4.94 x 10EE6/UL Normal 4.10 - 5.30 [facility] Comment on above: Performed By: #### 2 38550 #### [facility],[address] [place] [address] 78685 WBC 9.3 x 10EE3/UL Normal 4.5 - 10.8 [facility] Comment on above: Performed By: #### 2 98013 #### [facility],[address] [place] [address] 32122 CMP with eGFRon 03-15-2025 AGE 49 years Normal [facility] Comment on above: Performed By: #### 2 84152 ####[facility],[address] [place] [address] 68592 Albumin [Mass/Vol] 3.4 g/dL Normal 3.4 - 5.0 [facility] Comment on above: Performed By: #### 2 71571 ####[facility],[address] [place] [address] 00815 Albumin/Globulin [Mass ratio] 1.1 {ratio} Normal 0.9 - 1.6 [facility] Comment on above: Performed By: #### 2 87712 ####[facility],[address] [place] [address] 63871 ALK PHOS 96 U/L Normal 46 - 116 [facility] Comment on above: Performed By: #### 2 82528 ####[facility],[address] [place] [address] 66579 ALT [Catalytic activity/Vol] 23 U/L Normal 16 - 63 [facility] Comment on above: Performed By: #### 2 45900 ####[facility],[address] [place] [address] 69314 Anion gap [Moles/Vol] 15 mmol/L Normal 10 - 20 [facility] Comment on above: Performed By: #### 2 21711 ####[facility],[address] [place] [address] 56419 AST [Catalytic activity/Vol] 15 U/L Normal 13 - 39 [facility] Comment on above: Performed By: #### 2 34617 ####[facility],[address] [place], [place] [address] B/C RATIO 23 ratio Normal 0 - 30 [facility] Comment on above: Performed By: #### 2 26431 ####[facility],[address] [place] [address] 53683 Bilirubin [Mass/Vol] 0.4 mg/dL Normal 0.2 - 1.0 [facility] Comment on above: Performed By: #### 2 78166 ####[facility],[address] [place] [address] 90191 Calcium [Mass/Vol] 8.8 mg/dL Normal 8.5 - 10.1 [facility] Comment on above: Performed By: #### 2 19828 ####[facility],[address] [place] [address] 42302 Chloride [Moles/Vol] 106 mmol/L Normal 98 - 107 [facility] Comment on above: Performed By: #### 2 12477 ####[facility],[address] [place] [address] 14933 CMP with eGFR Normal [facility] Comment on above: Result Comment: COMP REHENSIVE METABOLIC PANEL Performed By: #### 2 25876 ####[facility],[address] [place] [address] 45638 CO2 [Moles/Vol] 26.1 mmol/L Normal 21.0 - 32.0 [facility] Comment on above: Performed By: #### 2 87125 ####[facility],[address] [place] [address] 87655 Creatinine [Mass/Vol] 0.75 mg/dL Normal 0.55 - 1.02 [facility] Comment on above: Performed By: #### 2 46337 ####[facility],[address] [place] [address] 78406 GFR/1.73 sq M.predicted among non-blacks MDRD (S/P/Bld) [Vol rate/Area] mL/min/{1.73_m2} Normal 60 - 999 [facility] Comment on above: Performed By: #### 2 34483 ####[facility],[address] [place] [address] Result Comment: ACCO RDING TO THE NATIONAL KIDNEY DISEASE EDUCATION PROGRAM(NKDE), A NORMAL eGFR IS A VALUE GREATER THAN OR EQUAL TO 60 ML/MIN/1.73 SQ METERS. CHRONIC KIDNEY DISEASE: <60mL/MIN/1.73 SQ METERS KIDNEY FAILURE: <15mL/MIN/1.73 SQ METERS THIS TEST SHOULD ONLY BE USED FOR PATIENTS 18 YEARS OF AGE AND OLDER. Globulin (S) [Mass/Vol] 3.2 g/dL Normal 1.5 - 3.8 [facility] Comment on above: Performed By: #### 2 69132 ####[facility],[address] [place] [address] 34847 Glucose [Mass/Vol] 114 mg/dL High 74 - 106 [facility] Comment on above: Performed By: #### 2 64788 ####[facility],[address] [place] [address] 03610 Potassium [Moles/Vol] 3.8 mmol/L Normal 3.5 - 5.1 [facility] Comment on above: Performed By: #### 2 74548 ####[facility],[address] [place] [address] 99325 Protein [Mass/Vol] 6.6 g/dL Normal 6.4 - 8.2 [facility] Comment on above: Performed By: #### 2 89257 ####[facility],[address] [place] [address] 49342 Sodium [Moles/Vol] 143 mmol/L Normal 136 - 145 [facility] Comment on above: Performed By: #### 2 74411 ####[facility],[address] [place] [address] 27347 Urea nitrogen [Mass/Vol] 17 mg/dL Normal 7 - 18 [facility] Comment on above: Performed By: #### 2 54170 ####[facility],[address] [place] [address] 45167 [facility] 03-15-2025 [place] Telephone (OBGYWM) JENNI MERINO ([id number]) 1975 F Date Time Provider Department 03/15/25 KAYLAH DEL TORO OBGUME During your visit today, we recorded the following information about you: Khushbu Cowan, RN 03/15/2025 8:31 AM Signed Patient started bleeding heavy again on Monday 03/12. She has been changing pad every 2 hours over the weekend and still is today. Denies chest pain. Having some dizziness and shortness of breath, but states SOB is normal for her with asthma - not worse than usual. She started taking the Lysteda 2 tablets TID since Saturday night with no improvement in flow. She did not go to ER because last time she did she said they gave her tylenol and told her to follow up in office. Please advise. CATRACHO Delaney Renee, APRN.CNP 03/15/2025 11:34 AM Signed I sent an Aygestin taper in for her to help stop the bleeding. She can stop the Lysteada if it is not helping. 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 When laying down, filling heavy period pad every 2 hours. When up moving then changing heavy period pad every 1 hour with clots. Advised Pt that we typically advise Pt's with heavy bleeding (saturating a pad (front to back, side to side) in one hour or less for two hours or more), with associated symptoms of dizziness and nausea that she should go to ER. Advised Pt, aware that she does not want to go to ER due to her last experience, but will send message to to see if she wants Pt to start on the Aygestin taper first to see if it is helpful AND stop the Lysteda or go to ER. Please advise. CATRACHO Boone Renee, APRN.PATTERN ASSEMBLER 03/15/2025 11:59 AM Signed If she is having the dizziness and a nauseous I do recommend that she go to the emergency room so that they can do blood work to check her for severe anemia. Otherwise start the Aygestin taper and see if it slows her bleeding down and let us know if it does not help. Kaylah Del Toro APRN.Lori Shoemaker RN 03/15/2025 12:15 PM Signed Patient notified. She plans to go to ER. Aware of the Aygestin taper. Patient has her EMB scheduled for Saturday. CATRACHO Early Jennifer, RN 03/16/2025 12:00 PM Signed See 03/09/25 result note for Pelvic US for patient update today.. Lori Lacy RN' Allergies As of Date: 03/15/2025 Noted Allergy Reaction ALBUTEROL 01/03/2023 12 - Shortness of Breath ACETAMINOPHEN 03/16/2015 2 - Rash Comments: Cehn flavored. Date Reviewed: 03/01/2025 Reviewed by: Joleen Izaguirre LPN - Fully Assessed Reason for Visit: Heavy Bleeding [Other] Order(s):norethindrone (AYGESTIN) 5 mg tabletTake 1 tablet TID until bleeding stops for 24 hours, then 1 tablet BID x 3 days, then 1 tablet daily x 3 days.Disp: 35 tabletRfl: 0 Prescriptions as of 03/16/2025 - norethindrone (AYGESTIN) 5 mg tablet Take 1 tablet TID until bleeding stops for 24 hours, then 1 tablet BID x 3 days, then 1 tablet daily x 3 days. - SYMBICORT 160-4.5 mcg/actuation inhaler Inhale 1 puff as instructed two times a day. - sertraline (ZOLOFT) 50 mg tablet Take 50 mg by mouth once daily. - Epinastine HCl 0.05 % drop Use 1 drop in both eyes two times a day. - tranexamic acid (LYSTEDA) 650 mg tablet Take 2 tablets 3 times a day as needed for heavy bleeding up to 5 days. Problem List As Of Date: 03/15/2025 (None) Prescriptions ordered this encounter Disp Refills Start End NORETHINDRONE ACETATE 5 MG TABLET 35 t* 0 03/15/2025 Sig: Take 1 tablet TID until bleeding stops for 24 hours, then 1 tablet BID x 3 days, then 1 tablet daily x 3 days. Encounter Status:Closed by LORI LACY on 03/15/25 Normal [facility] PREG SERUM QUANTon 5 HCG QUANTITATIVE 2 Normal [facility] Comment on above: Result Comment: Refe pippa Range: Male: <5 Female: Non: <5 1 - 7 days : 5 - 50 1 - 2 weeks: 50 - 500 2 - 3 weeks: 100 - 5000 3 - 4 weeks: 500 - 10,000 4 - 5 weeks: 1000 - 50,000 5 - 6 weeks: 10,000 - 100,000 6 - 8 weeks: 15,000 - 200,000 2 - 3 months: 10,000 - 100,000 2ND TRIMESTER 3000-50,000 3RD TRIMESTER 1000-50,000 Performed By: #### 2 79746 #### [facility],[address] [place] [address] 92333 PROTHROMBIN TIME AND INRon 0 03-15-2025 INR Coag (PPP) [Relative time] 1.0 {INR} Normal 0.8 - 1.2 [facility] Comment on above: Result Comment: T HE HEMOSIL THROMBOPLASTIN REAGENT USED IN THE PROTHROMBIN TIME TEST INTERACTS WITH THE DRUG CUBICIN (DAPTOMYCIN) AND WILL RESULT IN FALSELY ELEVATED PT / INR RESULTS INR INTERPRETATION INR INDICATION PREVENTION AND TREATMENT OF THROMBOEMBOLISM ASSOCIATED WITH: 2.0 - 3.0 ATRIAL FIBRILLATION, BIOPROSTHETIC HEART VALVES, PULMONARY EMBOLISM, VENOUS THROMBOSIS, SYSTEMIC EMBOLISM POST MYOCARDIAL INFARCTION 2.5 - 3.5 MECHANICAL HEART VALVES Performed By: #### 2 13329 #### [facility],[address] [place], [place] [id number] PROTHROMBIN TIME AND INR Normal [facility] Comment on above: Result Comment: PROT HROMBIN TIME AND INR Performed By: #### 2 77836 #### [facility],[address] [place], [place] [id number] PT-COUMADIN 10.9 sec Normal 9.3 - 14.1 [facility] Comment on above: Performed By: #### 2 44544 #### [facility],[address] [place] [address] 68628 RADIOLOGYon 03-15-2025 RADIOLOGY [place] [address] Patient: JENNI MERINO Phone#: : 1975 Age: 49 Gender: F Pt. Type: ER Account: [id number] Location: [facility] Ordering: MARIELENA CALHOUN Exam Date: 03/15/202514:44 Family Phys: Charge Code: 888698 Physician: Calvert Order #: [id number] Dose#: PROCEDURE: PELVIC ULTRASOUND, TRANSABDOMINAL ENDOVAGINAL COMPARISON: [facility], US, PELVIC, 12/21/2024, 8:45. INDICATIONS: Bleeding. TECHNIQUE: Pelvic ultrasound using transabdominal and endovaginal technique. FINDINGS: UTERUS: The uterus is 6.9 x 5.3 x 5.3 centimeters. The endometrium is thickened and measures 11 millimeters in thickness. Posteriorly and to the right of midline is a 2.5 x 3.0 by 2.9 centimeter fibroid. ADNEXAE: Normal bilateral appearance with no significant masses. Right ovary is 2.0 x 1.6 x 1.9 cm. Left ovary is 1.4 x 1.2 x 1.2 cm. CUL-DE-SAC: Normal. No fluid or mass. OTHER: Negative. CONCLUSION: 1. The endometrium is thickened measuring 11 millimeters, less than on prior exam. 2. A posterior uterine fibroid is present similar to previous exam. Dictated by: Tiffany Poe MD on 03/15/2025 at 16:06 Approved by: Tiffany Poe MD on 03/15/2025 at 16:12 Normal [facility] TROPONINon 03-15-2025 HS TROPONIN <4.0 Normal 0.0 - 51.4 [facility] Comment on above: Performed By: #### 2 45044 ####[place] [address] URINALYSISon 03-15-2025 Amorphous NONE Normal [facility] Comment on above: Performed By: #### 2 24953 #### [facility],[address] [place] [address] Bacteria NONE Normal [facility] Comment on above: Performed By: #### 2 07729 #### [facility],[address] [place], [place] [id number] Bilirubin Ql (U) Negative Normal NORMAL: NEGATIVE [facility] Comment on above: Performed By: #### 2 51398 #### [facility],[address] [place], [place] [id number] Casts NONE Normal [facility] Comment on above: Performed By: #### 2 13216 #### [facility],[address] [place] [address] 81559 Clarity (U) sl.cloudy Normal NORMAL: CLEAR [facility] Comment on above: Performed By: #### 2 34055 #### [facility],[address] [place] [address] 62660 Color (U) PINK Normal NORMAL: YELLOW [facility] Comment on above: Performed By: #### 2 35112 #### [facility],[address] [place] [address] 84341 Crystals LM Nom (Urine sed) NONE Normal [facility] Comment on above: Performed By: #### 2 01682 #### [facility],[address] [place] [address] 97854 Epi Cells NONE Normal [facility] Comment on above: Performed By: #### 2 37455 #### [facility],[address] [place] [address] 48004 Glucose Ql (U) NORM Normal NORMAL: NORMAL [facility] Comment on above: Performed By: #### 2 85893 #### [facility],[address] [place] [address] 69965 Hemoglobin Ql (U) 250 Abnormal NORMAL: NEGATIVE [facility] Comment on above: Performed By: #### 2 56829 #### [facility],[address] [place] [address] 27847 Ketone Negative Normal NORMAL: NEGATIVE [facility] Comment on above: Performed By: #### 2 72084 #### [facility],[address] [place] [address] 93022 Leukocytes 25 Abnormal NORMAL: NEGATIVE [facility] Comment on above: Performed By: #### 2 09350 #### [facility],[address] [place] [address] 51133 Mucous NONE Normal [facility] Comment on above: Performed By: #### 2 81819 #### [facility],[address] [place] [address] 61749 Nitrite Ql (U) Negative Normal NORMAL: NEGATIVE [facility] Comment on above: Performed By: #### 2 76737 #### [facility],[address] [place] [address] pH (U) 5 [pH] Normal NORMAL: 5.0-8.0 [facility] Comment on above: Performed By: #### 2 92777 #### [facility],[address] [place] [address] Protein Ql (U) 100 Abnormal NORMAL: NEGATIVE [facility] Comment on above: Performed By: #### 2 17164 #### [facility],[address] [place] [address] Rbc 25-30 Normal 0-3/hpf [facility] Comment on above: Performed By: #### 2 69713 #### [facility],[address] [place] [address] Sp [place] 1.020 Normal NORMAL: 1.010-1.030 [facility] Comment on above: Performed By: #### 2 23601 #### [facility],[address] [place] [address] Specimen Type R Normal [facility] Comment on above: Performed By: #### 2 24338 #### [facility],[address] [place] [address] Urinalysis dipstick W Reflex Microscopic panel (U) SEE BELOW Normal [facility] Comment on above: Result Comment: MICR OSCOPIC Performed By: #### 2 49453 #### [facility],[address] [place] [address] Urobilinog NORM Normal NORMAL: NORMAL [facility] Comment on above: Performed By: #### 2 29496 #### [facility],[address] [place] [address] Wbc 1-5 Normal 0-5/hpf [facility] Comment on above: Performed By: #### 2 16726 #### [facility],[address] [place] [address] 01464 Yeast NONE Normal [facility] Comment on above: Performed By: #### 2 41648 #### [facility],[address] [place] [address] 51033 [place] PELVICon 03-15-[address] [address] Patient: JENNI MERINO Phone#: : 1975 Age: 49 Gender: F Pt. Type: ER Account: [id number] Location: [facility] Ordering: MARIELENA [place] Exam Date: 03/15/2025/14:44 Family Phys: Charge Code: 218249 Physician: Calvert Order #: [id number] Dose#: PROCEDURE: PELVIC ULTRASOUND, TRANSABDOMINAL ENDOVAGINAL COMPARISON: [facility], , PELVIC, 12/21/2024, 8:45. INDICATIONS: Bleeding. TECHNIQUE: Pelvic ultrasound using transabdominal and endovaginal technique. FINDINGS: UTERUS: The uterus is 6.9 x 5.3 x 5.3 centimeters. The endometrium is thickened and measures 11 millimeters in thickness. Posteriorly and to the right of midline is a 2.5 x 3.0 by 2.9 centimeter fibroid. ADNEXAE: Normal bilateral appearance with no significant masses. Right ovary is 2.0 x 1.6 x 1.9 cm. Left ovary is 1.4 x 1.2 x 1.2 cm. CUL-DE-SAC: Normal. No fluid or mass. OTHER: Negative. CONCLUSION: 1. The endometrium is thickened measuring 11 millimeters, less than on prior exam. 2. A posterior uterine fibroid is present similar to previous exam. Dictated by: Tiffany Poe MD on 03/15/2025 at 16:06 Approved by: Tiffany Poe MD on 03/15/2025 at 16:12 Normal [facility]itt[facility] ([id number]) 1975 F Date Time Provider Department 03/09/25 KAYLAH DEL TORO During your visit today, we recorded the following information about you: Jian Salomon RN 03/09/2025 9:51 AM Signed Kaylah Del Toro APRN.KENYATTA 03/09/25 9:47 AM Note Please let the patient know that her ultrasound does show a fibroid approximately 5 cm and another small 1 approximately 1 cm, the lining of the uterus is thickened. I would like to perform an endometrial biopsy for further evaluation of her bleeding and the thickened lining. Orders filed. Kaylah Del Toro APRN.Jian Vazquez RN 03/09/2025 9:51 AM Signed Left message for patient to call office. CATRACHO Boone Trisha, RN 03/09/2025 11:58 AM Signed Patient notified and EMB scheduled. Khushbu Cowan RN Allergies As of Date: 03/09/2025 Noted Allergy Reaction ALBUTEROL 01/03/2023 12 - Shortness of Breath ACETAMINOPHEN 03/16/2015 2 - Rash Comments: Chen flavored. Date Reviewed: 03/01/2025 Reviewed by: Joleen Izaguirre LPN - Fully Assessed Reason for Visit: Results [95] Prescriptions as of 03/09/2025 - SYMBICORT 160-4.5 mcg/actuation inhaler Inhale 1 puff as instructed two times a day. - sertraline (ZOLOFT) 50 mg tablet Take 50 mg by mouth once daily. - Epinastine HCl 0.05 % drop Use 1 drop in both eyes two times a day. - tranexamic acid (LYSTEDA) 650 mg tablet Take 2 tablets 3 times a day as needed for heavy bleeding up to 5 days. Problem List As Of Date: 03/09/2025 (None) Encounter Status:Closed by KHUSHBU COWAN on 03/09/25 [facility] CNOVon 03-01-2025 CNOV Office Visit (OBGYWM ) JENNI MERINO ([id number]) 1975 F Date Time Provider Department 03/01/25 7:30 AM KAYLAH DEL TORO OBGYWM During your visit today, we recorded the following information about you: Blood pressure Weight Last Period 142/90 117.5 kg 11/30/24 Kaylah Del Toro APRN.PATTERN ASSEMBLER 03/01/2025 8:07 AM Signed Jennimechelle Merino is a 49 year old female who presents for problem visit AUB for 5 month(s). HPI: Patient states that in November of this year she started with heavy irregular bleeding after not having a menses since January 2024. She has been randomly bleeding on and off with no pattern since November. She was given Megace previously which caused her to feel pressure in her chest. She is having some random pelvic pain. If she lifts anything heavy it does increase her bleeding. She is currently on a lifting restrictions of less than 30 pounds per previous provider. Ultrasound report from [facility] shows a uterine fibroid of approximately 4 cm. 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 Social History Tobacco Use Smoking status: Never Smokeless tobacco: Never Vaping Use Vaping status: Never Used Substance Use Topics Alcohol use: Not Currently Drug use: Never Current Outpatient Medications Medication Sig SYMBICORT 160-4.5 mcg/actuation inhaler Inhale 1 puff as instructed two times a day. sertraline (ZOLOFT) 50 mg tablet Take 50 mg by mouth once daily. Epinastine HCl 0.05 % drop Use 1 drop in both eyes two times a day. tranexamic acid (LYSTEDA) 650 mg tablet Take 2 tablets 3 times a day as needed for heavy bleeding up to 5 days. No current facility-administered medications for this visit. Allergies As of Date: 03/01/2025 Allergen Noted Reaction ALBUTEROL 01/03/2023 Shortness of Breath ACETAMINOPHEN 03/16/2015 Rash Fully Assessed 03/01/2025 REVIEW OF SYSTEMS Expanded ROS: N/A Allergies and current medication updated:Yes SENSITIVE EXAM: The sensitive examination was discussed with the Patient or Patient's Authorized Earth Sciences Professor. As applicable, any other physician, advance practice provider, medical student, or other health professional student that will be observing or involved in the sensitive examination for educational or training purposes was discussed with the Patient or Authorized Earth Sciences Professor. The Patient or Authorized Earth Sciences Professor has agreed to proceed with the sensitive examination. (Sensitive examination includes inspection and/or palpation of the breasts, pelvis, prostate and anorectal regions). EXAM: BP 142/90 Wt 259 lb (117.5kg) LMP 11/30/2024 GENERAL: pleasant, female in no apparent distress HEENT: Normocephalic, atraumatic, mucus membranes moist, and no lesions CHEST: Normal inspiratory effort PELVIC: external genitalia normal, normal Bartholin's glands, urethra, [place]'s glands, no vulvar lesions, no cervical lesions, physiologic discharge present, normal appearing perineal body and perianal region BIMANUAL: uterus normal size, shape and consistency, no adnexal masses, non-tender, and Moderate tenderness right side NEURO: alert and oriented x3,exam grossly non-focal EXTREMITIES: normal ASSESSMENT AND PLAN: Assessment AND Plan Abnormal uterine bleeding (AUB) Orders: PELVIC US WHI; Future Uterine leiomyoma, unspecified location Orders: PELVIC US WHI; Future Will notify patient of test results. May need surgical consult Sarai Del Toro APRN.PATTERN ASSEMBLER Medical Decision Making: Problems: Moderate: New problem with uncertain prognosis Data: Unique test(s) ordered: 1 Risk: Moderate: Drug management Medical Decision Making Level: 4 - Moderate Referring Provider: MARIELENA CALHOUN [[id number]] Allergies As of Date: 03/01/2025 Noted Allergy Reaction ALBUTEROL 01/03/2023 12 - Shortness of Breath ACETAMINOPHEN 03/16/2015 2 - Rash Comments: Chen flavored. Date Reviewed: 03/01/2025 Reviewed by: Joleen Izaguirre LPN - Fully Assessed Reason for Visit: Menstrual Problem [67] Primary Visit Diagnosis:Abnormal uterine bleeding (AUB) [N93.9] Other Visit Diagnosis:Uterine leiomyoma, unspecified location [D25.9] Order(s):PELVIC US [facility] [[id number]] Order #: [id number]: 1 FUTURE tranexamic acid (LYSTEDA) 650 mg tabletTake 2 tablets 3 times a day as needed for (more content not included)... Normal [facility] JENNI MERINO ([id number]) 1975 F Date Time Provider Department 02/19/25 LORI SHOOK During your visit today, we recorded the following information about you: Lori Lacy, RN 02/19/2025 10:45 AM Signed New [facility] patient called requesting a ER f/u. Patient was seen at [facility] in [place] [facility] last night for bleeding and cramping. States it feels like she's having contractions and her body wants to push the mass out. She had a pelvic US done back in December that showed a uterine fibroid. She met with an REFERRAL AGENT in [place] who planned to schedule her surgery in April. Patient does not want to wait that long and the ER advised she have surgery sooner. Please see US results and referral information in scanned documents form [facility]. Will obtain ER report from [place] [facility]. They did not do any imaging, only blood work. Would you like patient added next week with one of the surgeons? Would you like patient to have a pelvic US since the last one is from December? CATRACHO Early Jennifer, RN 02/19/2025 11:26 AM Signed Received ER records from [facility] on 02/19/2025 11:05 AM by Provider, External, PA-C: [facility] Tequila March MD 02/19/2025 12:21 PM Signed Can we see the ultrasound from December? Jian Salomon RN 02/19/2025 12:31 PM Signed Left message for patient to call office- need to know location where US was performed and will attempt to obtain record. CATRACHO Boone Rebecca L, MD 02/19/2025 1:03 PM Signed We don't order tests on non-established patients without an office visit. She needs up to date pap/HPV/EMB. I would say let's have her come in for consult on Saturday w/ AT, EMB and order pelvic US update. In interim get pelvic US from outside facility and find out if has had DANDC or anything in past year. I don't see anything like this in care everywhere. we are happy to see her but I cannot guarantee we can get her in for a hyst before April but if it is a fibroid that we can remove hysteroscopically can get her in sooner. MD Terry Krueger Tara, RN 02/22/2025 10:39 AM Signed Consult is scheduled on 03/01/25 with . Pelvic US report/documents in scanned documents on 02/18/25. Jian Salomon RN Allergies As of Date: 02/19/2025 (Not on File) Date Reviewed: Never Reviewed Reason for Visit: ED Follow-up [821] Problem List As Of Date: 02/19/2025 (None) Encounter Status:Closed by JIAN SALOMON on 02/22/25 Normal [facility] CBC + DIFFon 02-18-2025 Baso # 0.04 x10EE3/UL Normal 0.00 - 0.10 [facility] Comment on above: Performed By: #### 2 [id number] #### [place] [address] Basophils/100 WBC (Bld) 0.5 % Normal 0.0 - 2.0 [facility] Comment on above: Performed By: #### 2 43685 #### [place] [address] CBC + DIFF Normal [facility] Comment on above: Result Comment: CBC- COMPLETE BLOOD COUNT Performed By: #### 2 20919 #### [place] [address] EO # 0.18 x10EE3/UL Normal 0.00 - 0.50 [facility] Comment on above: Performed By: #### 2 10871 #### [place] [address] Eosinophils/100 WBC (Bld) 1.9 % Normal 0.0 - 7.0 [facility] Comment on above: Performed By: #### 2 91408 #### [place] [address] Erythrocyte distribution width (RBC) [Ratio] 16.7 % High 12.0 - 15.6 [facility] Comment on above: Performed By: #### 2 14825 #### [place] [address] Hematocrit (Bld) [Volume fraction] 36.1 % Normal 34.0 - 46.0 [facility] Comment on above: Performed By: #### 2 36608 #### [place] [address] Hemoglobin (Bld) [Mass/Vol] 12.0 g/dL Normal 12.0 - 16.0 [facility] Comment on above: Performed By: #### 2 49149 #### [place] [address],[place] [address] Lymph # 2.60 x10EE3/UL Normal 0.80 - 2.80 [facility] Comment on above: Performed By: #### 2 39809 #### [facility],[address] [place], [place] [id number] Lymphocytes/100 WBC (Bld) 28.1 % Normal 20.0 - 45.0 [facility] Comment on above: Performed By: #### 2 88825 #### [facility],[address] [place] [address] MANUAL DIFF N/A Normal [facility] Comment on above: Performed By: #### 2 05190 #### [facility],[address] [place] [address] MCH (RBC) [Entitic mass] 24 pg Low 27 - 33 [facility] Comment on above: Performed By: #### 2 94655 #### [facility],[address] [place] [address] MCHC 33 X10 3 Normal 32 - 36 [facility] Comment on above: Performed By: #### 2 62487 #### [facility],[address] [place], [place] [phone] MCV (RBC) [Entitic vol] 72 fL Low 80 - 99 [facility] Comment on above: Performed By: #### 2 56562 #### [facility],[address] [place] [address] [place] # 0.66 x10EE3/UL Normal 0.20 - 1.00 [facility] Comment on above: Performed By: #### 2 58897 #### [facility],[address] [place] [address] MONOS % 7.1 % Normal 0.0 - 10.0 [facility] Comment on above: Performed By: #### 2 61343 #### [facility],[address] [place], [place] [phone] Morphology Alfred (Bld) [Interp] N/A Normal [facility] Comment on above: Performed By: #### 2 54067 #### [facility],[address] [place] [address] Neut # 5.77 x10EE3/UL Normal 1.50 - 7.10 [facility] Comment on above: Performed By: #### 2 10710 #### [facility],[address] [place] [address] Neutrophils/100 WBC (Bld) 62.4 % Normal 46.0 - 76.0 [facility] Comment on above: Performed By: #### 2 86704 #### [facility],[address] [place] [address] PLATELET 386 x10EE3/UL Normal 150 - 450 [facility] Comment on above: Performed By: #### 2 07888 #### [facility],[address] [place] [address] Platelet mean volume (Bld) [Entitic vol] 8.0 fL Normal 6.6 - 10.5 [facility] Comment on above: Result Comment: AUTO MATED DIFFERENTIAL Performed By: #### 2 56526 #### [facility],[address] [place] [address] RBC 4.99 x 10EE6/UL Normal 4.10 - 5.30 [facility] Comment on above: Performed By: #### 2 93350 #### [facility],[address] [place] [address] WBC 9.3 x 10EE3/UL Normal 4.5 - 10.8 [facility] Comment on above: Performed By: #### 2 60789 #### [facility],[address] [place] [address] ED MED ADMINISTRATION DETAIL on 02-18-2025 ED MED ADMINISTRATION DETAIL Echo Tech Medication Administration [address] [address] [phone] 02/18/2025 Patient: JENNI MERINO Sex: Female : 1975 Age: 49y MEASUREMENTS: Wt: 119.7 kg, Ht/Grupo: 66.0 in, BMI: 42.61 ALLERGIES: albuterol, chen flavored tylenol Medication Ordered Medication Administration Date/Time Acetaminophen 13:17 02/18 Acetaminophen (Tylenol) PO 650 mg given. Allergies Given (Tylenol) PO 650 verified and confirmed 5 rights. Information reviewed. Verbalizes 13:17 02/18/2025 mg (NOW x1) understanding. - 13:17 Juan Daniel Camacho R.N. Scanned 1 of 1 [facility] ED NURSES CLINICAL NOTEon ED NURSES CLINICAL NOTE Nurse Narrative Nurse Clinical [address] [address] [phone] 02/18/2025 11:49:00 Patient: JENNI MERINO Sex: Female : 1975 Age: 49y Disposition: Discharge to Home Disposition Decision Time: 14:12 02/18/2025 Departure Time: 14:19 02/18/2025 TRIAGE Arrived by private vehicle. Historian: (patient). Unaccompanied. Primary physician (Karla). ( Bleeding started November 30, bled for 1.5 months. Hysterectomy scheduled for April 22.). Triage time: 11:50 02/18/2025. Acuity: LEVEL 3. Chief Complaint: VAGINAL BLEED and (contractions). SEPSIS SCREEN: NEGATIVE. SIRS criteria negative. No possible sources of infection. -- 12:02 02/18/25 EDT Velma Park R.N. 11:59 02/18/25. BP: 147/85 MAP: 106. HR: 75. RR: 16. O2 saturation: 97% Temperature: 97.6 F. Pain level now 3/10. Describes the pain as (squeeze). -- 12:00 02/18/25 RAY Park R.N. Measurements: 12:02 02/18/25 Wt: 119.7 kg, Ht/Grupo: 66.0 in, BMI: 42.61 -- 12:02 02/18/25 RAY Park R.N. Medications: Symbicort 160 mcg-4.5 mcg/actuation HFA aerosol inhaler: 1 puff once a day. -- 12:02/18/25 RAY Park R.N. sertraline 50 mg tablet: 1 tablet once a day. -- 12:02/18/25 RAY Park R.N. 1 of 3 Nurse Narrative Allergies: chen flavored tylenol -- 11:56 02/18/25 RAY Park R.N. albuterol -- 11:56 02/18/25 RAY Park R.N. Problems: uterine polyp -- 11:56 02/18/25 RAY Park R.N. 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 ADDITIONAL SURGERIES: Tonsillectomy -- 11:58 02/18/25 RAY Park R.N. bone removed from toe -- 11:58 02/18/25 RAY Park R.N. Dental Work -- 11:59 02/18/25 RAY Park R.N. History 11:50 02/18/25. SOCIAL HX: Never smoker. No alcohol use or drug use. The patient has not traveled outside the [place] Infectious disease exposure: No infectious disease exposure. ABUSE ASSESSMENT: The patient answered yes to the question(s) Do you feel safe in your home? and no to the question(s) Are you afraid to go home?. SELF HARM ASSESSMENT: Self harm assessment was performed. The patient answered no to the question(s) Have you recently felt down, depressed, or hopeless? and Do you have thoughts of harming or killing yourself?. FALL RISK ASSESSMENT: Fall risk assessment completed. No risk factors identified. -- 12:02 02/18/25 RAY Park R.N. Interventions 11:50 02/18/25. Identification band and allergy band on patient. -- 12:02/18/25 RAY Park R.N. PHYSICAL ASSESSMENT 2 of 3 Nurse Narrative 12:08 02/18/25. Ambulatory to room. GENERAL / NEURO / PSYCH: Alert. Oriented X 4. Appears in pain. HEENT: Mucous membranes are pink. RESPIRATORY: Respirations not labored. GI / : Profuse vaginal bleeding present .1 pad per hour. SKIN: Skin is warm and dry. -- 12:08 02/18/25 EDT Velma Park R.N. NURSING PROGRESS NOTES 12:22 02/18/25. ( Dr. Bower's office paged). -- 12:22 02/18/25 EDT Se Araya R.N. 12:53 02/18/25. ( Dr. Lewis paged). -- 12:53 02/18/25 EDT Velma Park R.N. 13:07 02/18/25. ( Dr. Lewis returned call at this time). -- 13:07 02/18/25 EDT Velma Park R.N. 13:17 02/18/25. Acetaminophen (Tylenol) PO 650 mg given. Allergies verified and confirmed 5 rights. Information reviewed. Verbalizes understanding. -- 13:17 02/18/25 EDT Velma Park R.N. DISPOSITION / DISCHARGE 14:17 02/18/25. Vital signs deferred. -- 14:32 02/18/25 EDT Velma Park R.N. Departure time: 14:19 02/18/2025. Condition at departure: stable. No learning barriers present. Reviewed medication(s) (sent to [facility]). 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 Patient verbalized understanding. Written instructions provided in Comoran. The patient was discharged home. The patient left ambulatory and via private vehicle. Patient driving. -- 14:32 02/18/25 EDT Velma Park R.N. (Electronically signed by Velma Park R.N. 02/18/25 14:32:35 EDT) Generated by [facility] 3 of 3 Normal [facility] ED ORDER SHEET (CPOE ONLY)on 02-18-2025 ED ORDER SHEET (CPOE ONLY) Order Sheet Order Sheet [facility] [address] [place] [address] [id number] 02/18/2025 Patient: JENNI MERINO Sex: Female : 1975 Age: 49y MEASUREMENTS: Wt: 119.7 kg, Ht/Grupo: 66.0 in, BMI: 42.61 ALLERGIES: albuterol, chen flavored tylenol MEDICATION/IV/DRIP/FLU ID ORDERS Order Description Priority Entered Acknowledged Completed Acetaminophen (Tylenol) 13:15 02/18/2025 13:17 PO650 mg (NOW x1) Sylvester Cole, 02/18/2025 [place] R.N. LAB ORDERS Order Description Priority Entered Acknowledged Collected Completed CBC w Diff Stat Stat 12:11 02/18/2025 12:12 02/18/2025 12:26 02/18/2025 Velma Arzate R.N. Tessa Miller, R.N. D.OAdolfo DIAGNOSTIC STUDY ORDERS Order Description Priority Entered Acknowledged Completed STAFF ORDERS Order Description Priority Entered Acknowledged Collected Completed 1 of 2 Order Sheet [Electronically signed by Sylvester Cole D.O. (02/18/2025 18:43 EDT)] 2 of 2 Normal [facility] ED PHYSICIAN CLINICAL REPORT on 02-18-2025 ED PHYSICIAN CLINICAL REPORT Narrative Physician Clinical Narrative [address] [address] [phone] 02/18/2025 11:49:00 Patient: JENNI MERINO Sex: Female : 1975 Age: 49y Disposition: Discharge to Home Disposition Decision Time: 14:12 02/18/2025 Departure Time: 14:19 02/18/2025 Measurements Wt: 119.7 kg, Ht/Grupo: 66.0 in, BMI: 42.61 Initial Vital Sign Measured Time BP MAP HR RR O2Sat ETCO2 Temp Pain GCS RTS 11:59 02/18/2025 147/85 106 75 16 97% 97.6 F 3 Time Seen: 11:56 02/18/2025. Arrived- By private vehicle. Historian- patient. Independent historian- family. HISTORY OF PRESENT ILLNESS Chief Complaint: VAGINAL BLEEDING. This started just prior to arrival Patient had bleeding for. It started while she is at work and she presents to the emergency department she has had this in November 2 lasts for 2 weeks she is scheduled to have a hysterectomy in April and really does not want await because of the bleeding she came in earlier. I did discuss with Dr. Bower she is going to try to reschedule an earlier but she is call the office tomorrow. The patient has had abnormal bleeding. No abdominal pain or pain with urination. REVIEW OF SYSTEMS SKIN: No skin rash. RESPIRATORY: No cough. EYES: No eye discomfort. CONSTITUTIONAL: No anorexia. NEUROLOGICAL: No headache. GI: No nausea or vomiting. 1 of 5 Narrative PAST HISTORY See nurses notes. 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 Symbicort 160 mcg-4.5 mcg/actuation HFA aerosol inhaler: 1 puff once a day. Allergies: albuterol chen flavored tylenol SOCIAL HISTORY Never smoker. No alcohol use. ADDITIONAL NOTES The nursing notes have been reviewed. PHYSICAL EXAM Appearance: Alert. Oriented X3. No acute distress. HEENT: Normal external inspection. Neck: Neck supple. CVS: Heart sounds normal. Respiratory: No respiratory distress. Breath sounds normal. Abdomen: Soft. Skin: Skin warm and dry. Normal skin color. Normal skin turgor. 2 of 5 Narrative Extremities: Extremities nontender. Neuro: Oriented X 3. Mood/affect normal. LABS, X-RAYS, AND EKG Laboratory Tests: CBC + DIFF Final JAY: 02/18/2025 12:23:00 EDT MsgRcvd: 02/18/2025 13:01 EDT Lab Test Result Reference Status Received Comments 02/18/2025 13:01 CBC-COMPLETE CBC + DIFF Final EDT BLOOD COUNT 02/18/2025 13:01 WBC 9.3 x 10/UL 4.5 - 10.8 Final EDT 02/18/2025 13:01 RBC 4.99 x 10/UL 4.10 - 5.30 Final EDT 02/18/2025 13:01 HEMOGLOBIN 12.0 g/dl 12.0 - 16.0 Final EDT 02/18/2025 13:01 HEMATOCRIT 36.1 % 34.0 - 46.0 Final EDT 72 fl 02/18/2025 13:01 MCV 80 - 99 Final Below low normal EDT 24 pg 02/18/2025 13:01 MCH 27 - 33 Final Below low normal EDT 02/18/2025 13:01 MCHC 33 X10 3 32 - 36 Final EDT 16.7 % 02/18/2025 13:01 RDW/CV 12.0 - 15.6 Final Above high normal EDT 3 of 5 Narrative Lab Test Result Reference Status Received Comments 02/18/2025 13:01 PLATELET 386 x10/UL 150 - 450 Final EDT 02/18/2025 13:01 AUTOMATED MPV 8.0 fl 6.6 - 10.5 Final EDT DIFFERENTIAL 02/18/2025 13:01 NEUT % 62.4 % 46.0 - 76.0 Final EDT 02/18/2025 13:01 LYMPH % 28.1 % 20.0 - 45.0 Final EDT 02/18/2025 13:01 MONOS % 7.1 % 0.0 - 10.0 Final EDT 02/18/2025 13:01 EO % 1.9 % 0.0 - 7.0 Final EDT 02/18/2025 13:01 BASO % 0.5 % 0.0 - 2.0 Final EDT 02/18/2025 13:01 Lymph # 2.60 x10/UL 0.80 - 2.80 Final EDT 02/18/2025 13:01 Neut # 5.77 x10/UL 1.50 - 7.10 Final EDT 02/18/2025 13:01 [place] # 0.66 x10/UL 0.20 - 1.00 Final EDT 02/18/2025 13:01 EO # 0.18 x10/UL 0.00 - 0.50 Final EDT 02/18/2025 13:01 Baso # 0.04 x10/UL 0.00 - 0.10 Final EDT 02/18/2025 13:01 MANUAL DIFF N/A New Order EDT 4 of 5 Narrative Lab Test Result Reference Status Received Comments 02/18/2025 13:01 MORPHOLOGY N/A New Order EDT PROGRESS AND PROCEDURES MEDICAL DECISION MAKING: (Patient had bleeding for. It started while she is at work and she presents to the emergency department she has had this in November 2 lasts for 2 weeks she is scheduled to have a hysterectomy in April and really does not want await because of the bleeding she came in earlier. I did discuss with Dr. Bower she is going to try to reschedule an earlier but she is call the office tomorrow. I did place the patient on Megace 80 mg twice a day. And she is supposed return if increasing bleeding or concerns.). Disposition: Condition: stable. Discharge decision based on the following: patient's condition is stable; patient's exam is stable. CLINICAL IMPRESSION Moderate menorrhagia. DISCHARGE INSTRUCTI (more content not included)... Normal [facility] ED SUPER BILLon 02-18-2025 ED SUPER BILL [address] [address] [phone] 02/18/2025 Patient: JENNI MERINO Sex: Female : 1975 Age: 49y Item Professional Category Description Facility Code Code Quantity Fee Total Nurse/E/M EMERGENCY 045737 1 $0.00 $0.00 DEPARTMENT VISIT MODERATE SEVERITY (57096-06) Grand Total $0.00 Providers Sylvester Cole D.O. Chief Complaint VAGINAL BLEEDING. Principal Diagnosis Moderate menorrhagia. ICD-10 Codes 1 of 2 [facility] N92.0: Excessive and frequent menstruation with regular cycle N93.9: Abnormal uterine and vaginal bleeding, unspecified 2 of 2 Normal [facility] ED VISIT SUMMARYon ED VISIT SUMMARY Visit Overview Visit Overview [address] [address] [id number] 02/18/2025 Patient: JENNI MERINO Sex: Female : 1975 Age: 49y 02/18/2025 06:43 PM EDT ED Arrival:11:49 02/18/2025 EDT Status: Recent Travel:no Language:eng Adv Directive: Isolation Status: Ethnicity:N Fall Risk:no risk Infectious Disease Exposure:no Measurements:5'6 / 167.6 Self-Harm Status:risk Sepsis Screen:negative cm 264.0 lb / 119.7 kg Chief Complaint:VAGINAL BLEED, (contractions), (Bleeding started November 30, bled for 1.5 months. Hysterectomy scheduled for April 22. ), and ([place] ) ALLERGIES albuterol chen flavored tylenol HOME MEDICATIONS sertraline 50 mg tablet: 1 tablet once a day. Symbicort 160 mcg-4.5 mcg/actuation HFA aerosol inhaler: 1 puff once a day. 1 of 3 Visit Overview PAST MEDICAL HISTORY / PROBLEMS See nurses notes uterine polyp PAST SURGICAL HISTORY bone removed from toe Dental Work Tonsillectomy SOCIAL HISTORY Smoking status: No Alcohol use: No Drug use: No ED COURSE MEDICATIONS GIVEN IN EMERGENCY DEPARTMENT 13:17 02/18/25 Acetaminophen (Tylenol) PO 650 mg IV SITE INFORMATION INTAKE OUTPUT REASSESMENT (most recent) 12:08 02/18/25. Ambulatory to room. GENERAL / NEURO / PSYCH: Alert. Oriented X 4. Appears in pain. HEENT: Mucous membranes are pink. RESPIRATORY: Respirations not labored. GI / : Profuse vaginal bleeding present .1 pad per hour. SKIN: Skin is warm and dry. VITAL SIGNS First Vitals Last Vitals Temp 11:59 02/18/25 97.6 F Temp 11:59 02/18/25 97.6 F BP 11:59 02/18/25 147/85 BP 11:59 02/18/25 147/85 HR 11:59 02/18/25 75 HR 11:59 02/18/25 75 RR 11:59 02/18/25 16 RR 11:59 02/18/25 16 2 of 3 Visit Overview First Vitals Last Vitals O2 Sat 11:59 02/18/25 97% O2 Sat 11:59 02/18/25 97% Pain 11:59 02/18/25 3 Pain 11:59 02/18/25 3 ETCO2 11:59 02/18/25 ETCO2 11:59 02/18/25 GCS 11:59 02/18/25 GCS 11:59 02/18/25 RTS 11:59 02/18/25 RTS 11:59 02/18/25 PROCEDURES NURSING INTERVENTIONS LABS / STUDIES LABS / STUDIES ORDERED CBC w Diff CLINICAL IMPRESSION MODERATE MENORRHAGIA 3 of 3 Normal [facility] ED VITALS FLOW SHEETon 02-18 ED VITALS FLOW SHEET Vitals Vital Sign Flow Sheet [address] [address] [id number] 02/18/2025 Patient: JENNI MERINO Sex: Female : 1975 Age: 49y Measurements Wt: 119.7 kg, Ht/Grupo: 66.0 in, BMI: 42.61 Measured Time BP MAP HR RR O2Sat ETCO2 Temp Pain GCS RTS 14:17 02/18/2025 Vital signs deferred . 11:59 02/18/2025 147/85 106 75 16 97% 97.6 F 3 1 of 1 Normal [facility] CNCOon 02-03-2025 CNCO Letter Text Normal [facility] CV ECHO COMPLETEon CV ECHO COMPLETE [address] [address] Patient: JENNI MERINO Phone#: : 1975 Age: 49 Gender: F Pt. Type: Out Account: [id number] Location: Ordering: SHERRIE MONSON Exam Date: 01/22/2025/9:10 Family Phys: MARIELENA CALHOUN Charge Code: [id number] Physician: Cal[place] Order #: [id number] Dose#: PROCEDURE: ECHOCARDIOGRAM WITH DOPPLER AND COLOR FLOW HISTORY: Patient is a 49-year-old female with shortness of breath and chest INDICATIONS: Chest pain COMPARISON: None. TECHNIQUE: A 2-D ultrasound, color spectral Doppler and M-mode evaluation of the heart and great vessels. PATIENT MEASUREMENTS: Height (in.): 65 BSA: 2.21 Weight (lbs.): 260 BP: 154/97 Ecologist Technician: THAD M MODE 2D MEASUREMENTS AND CALCULATIONS: LVIDd: 4.30 cm LVIDs: 3.07 cm IVSd: 1.06 cm LVPWd: 1.16 cm LVOT diam: 1.96 cm FS: 28.53 % Ao Root diam: 3.89 cm LA diam: 2.9 cm LA Volume Index: 28 ml/m2 LA A4 Area: 16.03 cm2 RA A4 Area: 14.6 cm2 RVDd: 3.4 cm TAPSE: 18 mm DOPPLER MEASUREMENTS AND CALCULATIONS MITRAL MV E MAX anahy: 0.97 m/s MV A MAX anahy: 0.85 m/s MV E-A ratio: 1.14 MVA VTI 2.92 cm2 MV V2 max: 0.94 m/s MV max P.53 mm[Hg] Continued Report - Page 2 of 3 Patient: JENNI MERINO Phone#: : 1975 Age: 49 Gender: F Pt. Type: Out Account: [id number] Location: Ordering: SHERRIE MONSON Exam Date: 01/22/2025/9:10 Family Phys: MARIELENA CALHOUN Charge Code: [id number] Physician: Calvert Order #: [id number] Dose#: MV V2 mean: 0.71 m/s MV mean P.14 mm[Hg] MV V2 VTI: 30.33 cm MV PHT: 106.53 ms MVA PHT 2.07 cm2 Lat Peak E' Anahy 11 cm/sec Septal Peak E' ANAHY 7 cm/sec E/E' lateral 9 E/E' medial 15 AORTIC Ao V2 max: 1.48 m/s Ao max P.78 mm[Hg] Ao V2 mean: 1.05 m/s Ao mean P.07 mm[Hg] Ao V2 VTI: 34.89 cm DIANA (V Max): 2.72 cm2 DIANA (VTI): 2.54 cm2 LV V1 Max 1.33 m/s LV V1 Max PG 7.11 mm[Hg] LV V1 Mean PG 3.65 mm[Hg] LV V1 mean 0.89 m/s LV V1 VTI 29.30 cm PULMONIC PA V2 Max 1.16 m/s PA Max PG 5.34 mm[Hg] TRICUSPID TR Max Anahy TR max PG RVSP 2D/M-MODE AND COLOR FLOW LEFT VENTRICLE: There is mild concentric left ventricular hypertrophy. Left ventricle is normal in size. Systolic ejection fraction is 55-60%. There are no regional wall motion abnormality seen. Diastolic function is normal. WALL MOTION: 1 - Basal anterior: Normal. 7 - Mid anterior: Normal. 13 - Apical anterior: Normal. 2 - Basal anteroseptal: Normal. 8 - Mid anteroseptal: Normal. 14 - Apical septal: Normal. 3 - Basal inferoseptal: Normal. 9 - Mid inferoseptal: Normal. 15 - Apical inferior: Normal. 4 - Basal inferior: Normal. 10-Mid inferior: Normal. 16 - Apical lateral: Normal. 5 - Basal inferolateral: Normal. 11-Mid inferolateral: Normal. 6 - Basal anterolateral: Normal. 12-Mid anterolateral: Normal. Continued Report - Page 3 of 3 Patient: JENNI MERINO Phone#: : 1975 Age: 49 Gender: F Pt. Type: Out Account: [id number] Location: Ordering: SHERRIE MONSON Exam Date: 01/22/2025/9:10 Family Phys: MARIELENA CALHOUN Charge Code: [id number] Physician: Calvert Order #: [id number] Dose#: RIGHT VENTRICLE: Right ventricle is normal in size and systolic function LEFT ATRIUM: Left atrium is normal size. RIGHT ATRIUM: Right atrium is normal size. ATRIAL SEPTUM: There is no large interatrial shunt seen. PFO was not assessed. MITRAL VALVE: Mitral valve appears normal structure. There is trivial regurgitation and no stenosis seen. TRICUSPID VALVE: Tricuspid valve is normal structure. There is no regurgitation or stenosis seen AORTIC VALVE: Aortic valve is trileaflet. There is no regurgitation or stenosis seen. PULMONIC VALVE: Pulmonic valve is inadequately visualized. There is trivial regurgitation and no stenosis seen AORTIC ROOT: Aortic root is dilated at 3.9 cm. AORTIC ARCH: Inadequately visualized DESC THORACIC AORTA: Inadequately visualized. Doppler shows normal flow IVC/SVC: IVC is normal in size with more than 50% collapse of inspiration. Estimated atrial pressure is 3 mm Hg. PULMONARY VEINS: Normal pulmonic vein flow. PERICARDIUM: There is no pericardial effusion seen CONCLUSION: 1. There is mild concentric left ventricular hypertrophy. Left ventricle is normal in size. Systolic ejection fraction 55-60% with normal wall motion 2. There are no significant valvular dysfunction seen 3. Right ventricle is normal in size and systolic function 4. TR velocity is inadequate to calculate for right ventricular systolic pressure 5. Aortic root is dilated 3.9 cm. Dictated by: WAYNE BECKETT MD on 01/25/2025 at 11:48 Approved by: WAYNE BECKETT MD on 01/25/2025 at 12:35 Normal [facility] CBC (INCLUDES DIFF/PLT)on Basophils (Bld) [#/Vol] 0.06 10*3/uL Normal 0-200 [facility] Comment on above: Performed By: #### 6 399 #### [facility] of [address], [address] [place] [address] Store Stock Help: Jeffery Walker MD Basophils/100 WBC (Bld) 0.7 % Normal [facility] Comment on above: Performed By: #### 6 399 #### [facility] of [place] [address] Store Stock Help: Jeffery Walker MD Eosinophils (Bld) [#/Vol] 0.163 10*3/uL Normal 15-500 [facility] Comment on above: Performed By: #### 6 399 #### [facility] of [place] [address] Store Stock Help: Jeffery Walker MD Eosinophils/100 WBC (Bld) 1.9 % Normal [facility] Comment on above: Performed By: #### 6 399 #### [facility] of [place] [address] Store Stock Help: Jeffery Walker MD Erythrocyte distribution width (RBC) [Ratio] 15.3 % High 11.0-15.0 [facility] Comment on above: Performed By: #### 6 399 #### [facility] of [place] [address] Store Stock Help: Jeffery Walker MD Hematocrit (Bld) [Volume fraction] 40.5 % Normal 35.0-45.0 [facility] Comment on above: Performed By: #### 6 399 #### [facility] [place] [address] Store Stock Help: Jeffery Walker MD Hemoglobin (Bld) [Mass/Vol] 12.4 g/dL Normal 11.7-15.5 [facility] Comment on above: Performed By: #### 6 399 #### [facility] of [place] [address] Store Stock Help: Jeffery Walker MD Lymphocytes (Bld) [#/Vol] 2.262 10*3/uL Normal 850-3900 [facility] Comment on above: Performed By: #### 6 399 #### [facility] of [place] [address] Store Stock Help: Jeffery Walker MD Lymphocytes/100 WBC (Bld) 26.3 % Normal [facility] Comment on above: Performed By: #### 6 399 #### [facility] of [place] [address] Store Stock Help: Jeffery Walker MD MCH (RBC) [Entitic mass] 23.7 pg Low 27.0-33.0 [facility] Comment on above: Performed By: #### 6 399 #### [facility] of [place] [address] Store Stock Help: Jeffery Walker MD MCHC (RBC) [Mass/Vol] 30.6 g/dL Low 32.0-36.0 [facility] Comment on above: Result Comment: For adults, a slight decrease in the calculated MCHC value (in the range of 30 to 32 g/dL) is most likely not clinically significant; however, it should be interpreted with caution in correlation with other red cell parameters and the patient's clinical condition. Performed By: #### 6 399 #### [facility] of [place] [address] Store Stock Help: Jeffery Walker MD MCV (RBC) [Entitic vol] 77.4 fL Low 80.0-100.0 [facility] Comment on above: Performed By: #### 6 399 #### [facility] of [place] [address] Store Stock Help: Jeffery Walker MD Monocytes (Bld) [#/Vol] 0.619 10*3/uL Normal 200-950 [facility] Comment on above: Performed By: #### 6 399 #### [facility] of [place] [address] Store Stock Help: Jeffery Walker MD Monocytes/100 WBC (Bld) 7.2 % Normal [facility] Comment on above: Performed By: #### 6 399 #### [facility] of [place] [address] Store Stock Help: Jeffery Walker MD Neutrophils (Bld) [#/Vol] 5.495 10*3/uL Normal 1437-9608 [facility] Comment on above: Performed By: #### 6 399 #### [facility] of [place] [address] Store Stock Help: Jeffery Walker MD Neutrophils/100 WBC (Bld) 63.9 % Normal [facility] Comment on above: Performed By: #### 6 399 #### [facility] of [place] [address] Store Stock Help: Jeffery Walker MD Platelet mean volume (Bld) [Entitic vol] 10.5 fL Normal 7.5-12.5 [facility] Comment on above: Performed By: #### 6 399 #### [facility] of [place] [address] Store Stock Help: Jeffery Walker MD Platelets (Bld) [#/Vol] 401 10*3/uL High 140-400 [facility] Comment on above: Performed By: #### 6 399 #### [facility] of [place] [address] Store Stock Help: Jeffery Walker MD RBC (Bld) [#/Vol] 5.23 10*6/uL High 3.80-5.10 [facility] Comment on above: Performed By: #### 6 399 #### [facility] of [place] [address]70 Store Stock Help: Jeffery Walker MD WBC (Bld) [#/Vol] 8.6 10*3/uL Normal 3.8-10.8 [facility] Comment on above: Performed By: #### 6 399 #### [facility] [address], [address] [place] [address] Store Stock Help: Jeffery Walker MD FERRITINon 01-16-2025 Ferritin [Mass/Vol] 7 ng/mL Low 16-232 [facility] Comment on above: Performed By: #### 6 399 #### [facility] [address], [address] [place] [address] Store Stock Help: Jeffery Walker MD Laboratory - Chemistry and C hemistry - challengeon 01-15-2025 Ferritin [Mass/Vol] 7 ng/mL Abnormal 16 - 232 ng/mL [facility], [facility].; [employer] Laboratory - Hematology and Cell countson 01-15-2025 Basophils (Bld) [#/Vol] 0.06 10*3/uL Normal 0 - 200 {cells/uL} [employer] Basophils/100 WBC (Bld) 0.7 % Normal [employer], [facility].; [employer] Eosinophils (Bld) [#/Vol] 0.163 10*3/uL Normal 15 - 500 {cells/uL} [employer] [facility] [employer] Eosinophils/100 WBC (Bld) 1.9 % Normal [employer] [employer] [facility], [facility].; [employer] Erythrocyte distribution width (RBC) [Ratio] 15.3 % Abnormal 11.0 - 15.0 % [employer] Hematocrit (Bld) [Volume fraction] 40.5 % Normal 35.0 - 45.0 % [employer] Hemoglobin (Bld) [Mass/Vol] 12.4 g/dL Normal 11.7 - 15.5 g/dL [place] [employer] [facility], [facility] [employer] Lymphocytes (Bld) [#/Vol] 2.262 10*3/uL Normal 850 - 3900 {cells/uL} [facility] [employer] [employer] Lymphocytes/100 WBC (Bld) 26.3 % Normal [facility], [facility].; [employer] [facility] MCH (RBC) [Entitic mass] 23.7 pg Abnormal 27.0 - 33.0 pg [facility], [facility] [employer] MCHC (RBC) [Mass/Vol] 30.6 g/dL Abnormal 32.0 - 36.0 g/dL [facility], [facility] [employer] MCV (RBC) [Entitic vol] 77.4 fL Abnormal 80.0 - 100.0 fL [employer] Monocytes (Bld) [#/Vol] 0.619 10*3/uL Normal 200 - 950 {cells/uL} [employer] Monocytes/100 WBC (Bld) 7.2 % Normal [facility] [employer] Neutrophils (Bld) [#/Vol] 5.495 10*3/uL Normal 1500 - 7800 {cells/uL} [employer] Neutrophils/100 WBC (Bld) 63.9 % Normal [employer] Platelet mean volume (Bld) [Entitic vol] 10.5 fL Normal 7.5 - 12.5 fL [facility], [facility] [employer] Platelets (Bld) [#/Vol] 401 10*3/uL Abnormal 140 - 400 [employer] RBC (Bld) [#/Vol] 5.23 10*6/uL Abnormal 3.80 - 5.1 0 {Million/uL} [employer] WBC (Bld) [#/Vol] 8.6 10*3/uL Normal 3.8 - 10.8 [employer] 3D MAMM BILAT SCREENon 12-21 3D MAMM BILAT SCREEN [address] [address] Patient: JENNI MERINO Phone#: : 1975 Age: 49 Gender: F Pt. Type: Out Account: [id number] Location: Ordering: MARIELENA CALHOUN Exam Date: 12/21/2024/9:58 Family Phys: Charge Code: [id number] Physician: [place] Order #: [id number] Dose#: PROCEDURE: BILATERAL SCREENING BREAST TOMOSYNTHESIS MAMMOGRAM WITH CAD COMPARISON: [facility], LT SPOT/MAG DIGITAL, 02/19/2022, 15:44. [facility], 3D BILAT SCREEN, 02/19/2022, 15:08. INDICATIONS: Screening. BREAST COMPOSITION: Heterogeneously dense, which may obscure small masses. FINDINGS: DIAGNOSTIC CATEGORY 1--NEGATIVE NO CHANGE FROM COMPARISON ASSESSMENT. RIGHT BREAST: No significant suspicious finding. No significant change has occurred. LEFT BREAST: No significant suspicious finding. No significant change has occurred. RECOMMENDATIONS: ROUTINE MAMMOGRAM AND CLINICAL EVALUATION IN 12 MONTHS. PLEASE NOTE: A NORMAL MAMMOGRAM DOES NOT EXCLUDE THE POSSIBILITY OF BREAST CANCER. A CLINICALLY SUSPICIOUS PALPABLE LUMP SHOULD BE BIOPSIED. THIS FACILITY UTILIZES A REMINDER SYSTEM TO ENSURE THAT ALL PATIENTS RECEIVE REMINDER LETTERS FOR APPOINTMENTS. THIS INCLUDES REMINDERS FOR ROUTINE MAMMOGRAMS, DIAGNOSITC MAMMOGRAMS, OR OTHER BREAST IMAGING INTERVENTIONS WHEN APPROPRIATE. THIS PATIENT WILL BE PLACED IN THE APPROPRIATE REMINDER SYSTEM. Dictated by: Tiffany Poe MD on 12/21/2024 at 16:30 Approved by: Tiffany Poe MD on 12/21/2024 at 16:34 Normal [facility] US PELVICon 12-21-[address] [address] Patient: JENNI MERINO Phone#: : 1975 Age: 49 Gender: F Pt. Type: Out Account: [id number] Location: Ordering: MARIELENA CALHOUN Exam Date: 12/21/2024/8:45 Family Phys: Charge Code: 906605 Physician: Calvert Order #: [id number] Dose#: PROCEDURE: PELVIC ULTRASOUND, TRANSABDOMINAL ENDOVAGINAL COMPARISON: None. INDICATIONS: Irregular bleeding. TECHNIQUE: Pelvic ultrasound using transabdominal and endovaginal technique. FINDINGS: Exam is limited by patient body habitus. The bladder is not fully distended. UTERUS: The uterus is retroverted. Uterus is 8.5 x 8.5 x 5.5 centimeters. The endometrium is 2.4 centimeters at the fundus. There is fluid present in the lower uterine segment of the canal. Fibroid is present in the right mid uterus measuring 4.0 x 4.4 centimeters. ADNEXAE: Normal bilateral appearance with no significant masses. Right ovary is 2.1 x 1.5 x 1.8 cm. Left ovary is 2.7 x 2.0 x 2.3 cm. CUL-DE-SAC: Normal. No fluid or mass. OTHER: Negative. CONCLUSION: 1. The uterus is retroverted. There is thickening of the endometrial canal at the fundus. 2. Uterine fibroid is present. Dictated by: Tiffany Poe MD on 12/21/2024 at 14:58 Approved by: Tiffany Poe MD on 12/21/2024 at 15:03 Normal [facility] PELVIC ENDO VAGINALon PELVIC ENDO VAGINAL [place] [address] Patient: JENNI MERINO Phone#: : 1975 Age: 49 Gender: F Pt. Type: Out Account: [id number] Location: Ordering: [facility] Exam Date: 12/21/2024/8:45 Family Phys: Charge Code: 666248 Physician: Calvert Order #: [id number] Dose#: PROCEDURE: PELVIC ULTRASOUND, TRANSABDOMINAL ENDOVAGINAL COMPARISON: None. INDICATIONS: Irregular bleeding. TECHNIQUE: Pelvic ultrasound using transabdominal and endovaginal technique. FINDINGS: Exam is limited by patient body habitus. The bladder is not fully distended. UTERUS: The uterus is retroverted. Uterus is 8.5 x 8.5 x 5.5 centimeters. The endometrium is 2.4 centimeters at the fundus. There is fluid present in the lower uterine segment of the canal. Fibroid is present in the right mid uterus measuring 4.0 x 4.4 centimeters. ADNEXAE: Normal bilateral appearance with no significant masses. Right ovary is 2.1 x 1.5 x 1.8 cm. Left ovary is 2.7 x 2.0 x 2.3 cm. CUL-DE-SAC: Normal. No fluid or mass. OTHER: Negative. CONCLUSION: 1. The uterus is retroverted. There is thickening of the endometrial canal at the fundus. 2. Uterine fibroid is present. Dictated by: Tiffany Poe MD on 12/21/2024 at 14:58 Approved by: Tiffany Poe MD on 12/21/2024 at 15:03 Normal [facility] CBC (INCLUDES DIFF/PLT)on Basophils (Bld) [#/Vol] 0.081 10*3/uL Normal 0-200 [facility] Comment on above: Performed By: #### 7 600, 77552, 86908, 2410 #### [facility] [place] [address] Store Stock Help: Jeffery Walker MD Basophils/100 WBC (Bld) 0.9 % Normal [facility] Comment on above: Performed By: #### 7 600, 45713, 19311, 1882 #### [facility] [place] [address] Store Stock Help: Jeffery Walker MD Eosinophils (Bld) [#/Vol] 0.189 10*3/uL Normal 15-500 [facility] Comment on above: Performed By: #### 7 600, 86855, 89731, 3100 #### [facility] [address], [address] [place] [address] Store Stock Help: Jeffery Walker MD Eosinophils/100 WBC (Bld) 2.1 % Normal [facility] Comment on above: Performed By: #### 7 600, , , 99 #### [facility] of [place] [address] Store Stock Help: Jeffery Walker MD Erythrocyte distribution width (RBC) [Ratio] 14.8 % Normal 11.0-15.0 [facility] Comment on above: Performed By: #### 7 600, , , 99 #### [facility] of [place] [address] Store Stock Help: Jeffery Walker MD Hematocrit (Bld) [Volume fraction] 39.8 % Normal 35.0-45.0 [facility] Comment on above: Performed By: #### 7 600, , , 6398 #### [facility] of [place] [address] Store Stock Help: Jeffery Walker MD Hemoglobin (Bld) [Mass/Vol] 12.0 g/dL Normal 11.7-15.5 [facility] Comment on above: Performed By: #### 7 600, , , 63 #### [facility] of [place] [address] Store Stock Help: Jeffery Walker MD Lymphocytes (Bld) [#/Vol] 2.124 10*3/uL Normal 850-3900 [facility] Comment on above: Performed By: #### 7 600, , , 6398 #### [facility] of [place] [address] Store Stock Help: Jeffery Walker MD Lymphocytes/100 WBC (Bld) 23.6 % Normal [facility] Comment on above: Performed By: #### 7 600, , , 63 #### [facility] of [place] [address] Store Stock Help: Jeffery Walker MD MCH (RBC) [Entitic mass] 23.6 pg Low 27.0-33.0 [facility] Comment on above: Performed By: #### 7 600, 41618, , 6398 #### [facility] of [place] [address] Store Stock Help: Jeffery Walker MD MCHC (RBC) [Mass/Vol] 30.2 g/dL Low 32.0-36.0 [facility] Comment on above: Result Comment: For adults, a slight decrease in the calculated MCHC value (in the range of 30 to 32 g/dL) is most likely not clinically significant; however, it should be interpreted with caution in correlation with other red cell parameters and the patient's clinical condition. Performed By: #### 7 600, , , 6398 #### [facility] of [place] [address] Store Stock Help: Jeffery Walker MD MCV (RBC) [Entitic vol] 78.3 fL Low 80.0-100.0 [facility] Comment on above: Performed By: #### 7 600, , , 6398 #### [facility] of [place] [address] Store Stock Help: Jeffery Walker MD Monocytes (Bld) [#/Vol] 0.666 10*3/uL Normal 200-950 [facility] Comment on above: Performed By: #### 7 600, , , 6398 #### [facility] of [place] [address] Store Stock Help: Jeffery Walker MD Monocytes/100 WBC (Bld) 7.4 % Normal [facility] Comment on above: Performed By: #### 7 600, , , 6398 #### [facility] of [place] [address] Store Stock Help: Jeffery Walker MD Neutrophils (Bld) [#/Vol] 5.94 10*3/uL Normal 4919-2058 [facility] Comment on above: Performed By: #### 7 600, , , 6399 #### [facility] of [address] [place] [address] Store Stock Help: Jeffery Walker MD Neutrophils/100 WBC (Bld) 66 % Normal [facility] Comment on above: Performed By: #### 7 600, , , 6399 #### [facility] of [place] [address] Store Stock Help: Jeffery Walker MD Platelet mean volume (Bld) [Entitic vol] 10.2 fL Normal 7.5-12.5 [facility] Comment on above: Performed By: #### 7 600, , , 6399 #### [facility] of [place] [address] Store Stock Help: Jeffery Walker MD Platelets (Bld) [#/Vol] 398 10*3/uL Normal 140-400 [facility] Comment on above: Performed By: #### 7 600, , , 6399 #### [facility] of [place] [address] Store Stock Help: Jeffery Walker MD RBC (Bld) [#/Vol] 5.08 10*6/uL Normal 3.80-5.10 [facility] Comment on above: Performed By: #### 7 600, , , 6399 #### [facility] [place] [address] Store Stock Help: Jeffery Walker MD WBC (Bld) [#/Vol] 9.0 10*3/uL Normal 3.8-10.8 [facility] Comment on above: Performed By: #### 7 600, , , 6399 #### [facility] of [place] [address] Store Stock Help: Jeffery Walker MD COMPREHENSIVE METABOLIC PANE [facility] 12-12-2024 Albumin [Mass/Vol] 4.1 g/dL Normal 3.6-5.1 [facility] Comment on above: Performed By: #### 7 600, , , 6399 #### [facility] of [address], [address] [place] [address] Store Stock Help: Jeffery Walker MD Albumin/Globulin [Mass ratio] 1.6 {ratio} Normal 1.0-2.5 [facility] Comment on above: Performed By: #### 7 600, 23224, 21314, 6399 #### [facility] of [address], [address] [place] [address] Store Stock Help: Jeffery Walker MD ALP [Catalytic activity/Vol] 80 U/L Normal 31-125 [facility] Comment on above: Performed By: #### 7 600, 02278, , 6399 #### [facility] of [address], [address] [place] [address] Store Stock Help: Jeffery Walker MD ALT [Catalytic activity/Vol] 12 U/L Normal 6-29 [facility] Comment on above: Performed By: #### 7 600, 33191, , 6399 #### [facility] of [address], [address] [place] [address] Store Stock Help: Jeffery Walker MD AST [Catalytic activity/Vol] 12 U/L Normal 10-35 [facility] Comment on above: Performed By: #### 7 600, 55252, , 6399 #### [facility] of [address], [address] [place] [address] Store Stock Help: Jeffery Walker MD Bilirubin [Mass/Vol] 0.8 mg/dL Normal 0.2-1.2 [facility] Comment on above: Performed By: #### 7 600, 51153, , 6399 #### [facility] of [address], [address] [place] [address] Store Stock Help: Jeffery Walker MD BUN/CREATININE RATIO SEE NOTE: Normal 6-22 [facility] Comment on above: Result Comment: Not Reported: BUN and Creatinine are within reference range. Performed By: #### 7 600, 50091, , 6399 #### [facility] of [address], [address] [place] [address] Store Stock Help: Jeffery Walker MD Calcium [Mass/Vol] 8.8 mg/dL Normal 8.6-10.2 [facility] Comment on above: Performed By: #### 7 600, , , 6399 #### [facility] [place] [address] Store Stock Help: Jeffery Walker MD Chloride [Moles/Vol] 107 mmol/L Normal 98-110 [facility] Comment on above: Performed By: #### 7 600, , , 6398 #### [facility] [place] [address] Store Stock Help: Jeffery Walker MD CO2 [Moles/Vol] 23 mmol/L Normal 20-32 [facility] Comment on above: Performed By: #### 7 600, , , 6398 #### [facility] of [place] [address] Store Stock Help: Jeffery Walker MD Creatinine [Mass/Vol] 0.56 mg/dL Normal 0.50-0.99 [facility] Comment on above: Performed By: #### 7 600, , , 63 #### [facility] [place] [address] Store Stock Help: Jeffery Walker MD GFR/1.73 sq M.predicted among non-blacks MDRD (S/P/Bld) [Vol rate/Area] 113 mL/min/{1.73_m2} Normal > OR = 60 [facility] Comment on above: Performed By: #### 7 600, , , 63 #### [facility] of [place] [address] Store Stock Help: Jeffery Walker MD Globulin (S) [Mass/Vol] 2.5 g/dL Normal 1.9-3.7 [facility] Comment on above: Performed By: #### 7 600, , , 63 #### [facility] of [address], [address] [place] [address] Store Stock Help: Jeffery Walker MD Glucose [Mass/Vol] 96 mg/dL Normal 65-99 [facility] Comment on above: Result Comment: Fasting reference interval Performed By: #### 7 600, 12162, , 6399 #### [facility] of [address], [address] [place] [address] Store Stock Help: Jeffery Walker MD Potassium [Moles/Vol] 4.1 mmol/L Normal 3.5-5.3 [facility] Comment on above: Performed By: #### 7 600, 34473, , 6399 #### [facility] of [address], [address] [place] [address] Store Stock Help: Jeffery Walker MD Protein [Mass/Vol] 6.6 g/dL Normal 6.1-8.1 [facility] Comment on above: Performed By: #### 7 600, 15648, , 6399 #### [facility] of [address], [address] [place] [address] Store Stock Help: Jeffery Walker MD Sodium [Moles/Vol] 138 mmol/L Normal 135-146 [facility] Comment on above: Performed By: #### 7 600, 75682, , 6399 #### [facility] of [address], [address] [place] [address] Store Stock Help: Jeffery Walker MD Urea nitrogen [Mass/Vol] 16 mg/dL Normal 7-25 [facility] Comment on above: Performed By: #### 7 600, 97464, , 6399 #### [facility] of [address], [address] [place] [address] Store Stock Help: Jeffery Walker MD FERRITINon 12-12-2024 Ferritin [Mass/Vol] 6 ng/mL Low 16-232 [facility] Comment on above: Performed By: #### 7 600, 74035, , 6399 #### [facility] of [address], [address] [place] [address] Store Stock Help: Jeffery Walker MD LIPID PANEL, [facility] 02-0 Cholesterol [Mass/Vol] 231 mg/dL High <200 [facility] Comment on above: Performed By: #### 7 600, 61246, 52890, 6399 #### [facility] [address], [address] [place] [address] Store Stock Help: Jeffery Walker MD Cholesterol in HDL [Mass/Vol] 69 mg/dL Normal > OR = 50 [facility] Comment on above: Performed By: #### 7 600, 78951, 97369, 6399 #### [facility] [place] [address] Store Stock Help: Jeffery Walker MD Cholesterol in LDL [Mass/Vol] 143 mg/dL High [facility] Comment on above: Result Comment: Refe rence range: <100 Desirable range <100 mg/dL for primary prevention; <70 mg/dL for patients with CHD or diabetic patients with > or = 2 CHD risk factors. LDL-C is now calculated using the Shahram-Kena calculation, which is a validated novel method providing better accuracy than the Friedewald equation in the estimation of LDL-C. Shahram SS et al. ULI. 2013;310(19): 4631-4415 (http://education.[employer]/faq/ZXI753) Performed By: #### 7 600, 86470, 54191, 6399 #### [facility] [address], [address] [place] [address] Store Stock Help: Jeffery Walker MD Cholesterol.total/Ch olesterol in HDL [Mass ratio] 3.3 {ratio} Normal <5.0 [facility] Comment on above: Performed By: #### 7 600, 92361, 76242, 6399 #### [facility] [address], [address] [place] [address] Store Stock Help: Jeffery Walker MD NON HDL CHOLESTEROL 162 mg/dL (calc) High <130 [facility] Comment on above: Result Comment: For patients with diabetes plus 1 major ASCVD risk factor, treating to a non-HDL-C goal of <100 mg/dL (LDL-C of <70 mg/dL) is considered a therapeutic option. Performed By: #### 7 600, 56363, 07037, 2095 #### [facility] [address], [address] [place] [address] Store Stock Help: Jeffery Walker MD Triglyceride [Mass/Vol] 85 mg/dL Normal <150 [facility] Comment on above: Performed By: #### 7 600, 03635, 69708, 5799 #### [facility] [address], [address] [place] [address] Store Stock Help: Jeffery Walker MD TSH W/REFLEX TO FT4on 2024 TSH W/REFLEX TO FT4 0.96 mIU/L Normal [facility] Comment on above: Result Comment: Refe rence Range > or = 20 Years 0.40-4.50 Ranges First trimester 0.26-2.66 Second trimester 0.55-2.73 Third trimester 0.43-2.91 Performed By: #### 7 600, 52196, 51313, 5399 #### [facility] [address], [address] [place] [address] Store Stock Help: Jeffery Walker MD Laboratory - Chemistry and C hemistry - challengeon 12-11-2024 Albumin [Mass/Vol] 4.1 g/dL Normal 3.6 - 5.1 g/dL [facility] [employer] [facility] Albumin/Globulin [Mass ratio] 1.6 {ratio} Normal 1.0 - 2.5 [facility], [facility].; [employer] [facility] ALP [Catalytic activity/Vol] 80 U/L Normal 31 - 125 U/L [facility], [facility].; [employer] ALT [Catalytic activity/Vol] 12 U/L Normal 6 - 29 U/L [employer] [facility], [facility].; [employer] [facility] AST [Catalytic activity/Vol] 12 U/L Normal 10 - 35 U/L [facility], [facility].; [employer] Bilirubin [Mass/Vol] 0.8 mg/dL Normal 0.2 - 1 .2 mg/dL [facility], [facility].; [facility], [facility]. Calcium [Mass/Vol] 8.8 mg/dL Normal 8.6 - 10. 2 mg/dL [facility], [facility].; [facility], [facility]. Chloride [Moles/Vol] 107 mmol/L Normal 98 - 11 0 mmol/L [facility], [facility].; [facility], [facility]. Cholesterol [Mass/Vol] 231 mg/dL Abnormal [facility].; [facility], [facility]. Cholesterol in HDL [Mass/Vol] 69 mg/dL Normal [facility], [facility].; [facility], [facility]. Cholesterol in LDL [Mass/Vol] 143 mg/dL Abnormal [facility], [facility].; [facility], [facility]. CO2 [Moles/Vol] 23 mmol/L Normal 20 - 32 mmol/L [facility], [facility].; [facility], [facility]. Creatinine [Mass/Vol] 0.56 mg/dL Normal 0.50 - 0.99 mg/dL [facility], [facility].; [facility], [facility]. Ferritin [Mass/Vol] 6 ng/mL Abnormal 16 - 232 ng/mL [facility], [facility].; [facility], [facility]. GFR/1.73 sq M.predicted among non-blacks MDRD (S/P/Bld) [Vol rate/Area] 113 mL/min/{1.73_m2} Normal [facility], [facility].; [facility], [employer] Glucose [Mass/Vol] 96 mg/dL Normal 65 - 99 mg/dL [facility].; [facility], [employer] Potassium [Moles/Vol] 4.1 mmol/L Normal 3.5 - 5.3 mmol/L [facility], [facility].; [facility], [facility]. Protein [Mass/Vol] 6.6 g/dL Normal 6.1 - 8.1 g/dL [facility], [facility].; [place] [employer] [facility] Sodium [Moles/Vol] 138 mmol/L Normal 135 - 146 mmol/L [facility], [facility].; [facility], [employer] Triglyceride [Mass/Vol] 85 mg/dL Normal [facility] [employer].; [employer] Urea nitrogen [Mass/Vol] 16 mg/dL Normal 7 - 25 mg/dL [facility] [employer].; [place] [employer]. Laboratory - Hematology and Cell countson 12-11-2024 Basophils (Bld) [#/Vol] 0.081 10*3/uL Normal 0 - 200 {cells/uL} [facility], [facility].; [employer] Basophils/100 WBC (Bld) 0.9 % Normal [facility].; [place] [employer] [facility], [employer]. Eosinophils (Bld) [#/Vol] 0.189 10*3/uL Normal 15 - 500 {cells/uL} [place] [employer] [facility].; [employer], [employer]. Eosinophils/100 WBC (Bld) 2.1 % Normal [place] [employer] [facility].; [employer], [employer]. Erythrocyte distribution width (RBC) [Ratio] 14.8 % Normal 11.0 - 15.0 % [place] [employer] [facility].; [employer], [employer]. Hematocrit (Bld) [Volume fraction] 39.8 % Normal 35.0 - 45.0 % [place] [employer] [facility].; [employer], [employer]. Hemoglobin (Bld) [Mass/Vol] 12.0 g/dL Normal 11.7 - 15.5 g/dL [facility].; [employer] [employer], [employer]. Lymphocytes (Bld) [#/Vol] 2.124 10*3/uL Normal 850 - 3900 {cells/uL} [place] [employer] [facility].; [employer]. Lymphocytes/100 WBC (Bld) 23.6 % Normal [place] [employer] [facility].; [employer]. MCH (RBC) [Entitic mass] 23.6 pg Abnormal 27.0 - 33.0 pg [place] [employer] [facility].; [employer], [employer]. MCHC (RBC) [Mass/Vol] 30.2 g/dL Abnormal 32.0 - 36.0 g/dL [place] [employer] [facility], [facility].; [employer], [employer]. MCV (RBC) [Entitic vol] 78.3 fL Abnormal 80.0 - 100.0 fL [facility] [employer] [facility].; [employer]. Monocytes (Bld) [#/Vol] 0.666 10*3/uL Normal 200 - 950 {cells/uL} [facility].; [facility] Monocytes/100 WBC (Bld) 7.4 % Normal [facility].; [facility], [facility]. Neutrophils (Bld) [#/Vol] 5.94 10*3/uL Normal 1500 - 7800 {cells/uL} [facility].; [facility] Neutrophils/100 WBC (Bld) 66 % Normal [facility]; [facility], [facility] Platelet mean volume (Bld) [Entitic vol] 10.2 fL Normal 7.5 - 12.5 fL [facility]; [facility], [facility] Platelets (Bld) [#/Vol] 398 10*3/uL Normal 140 - 400 [facility]; [facility], [facility] RBC (Bld) [#/Vol] 5.08 10*6/uL Normal 3.80 - 5.1 0 {Million/uL} [facility].; [facility], [facility]. WBC (Bld) [#/Vol] 9.0 10*3/uL Normal 3.8 - 10.8 [facility].; [facility], [facility] No Panel Informationon 12-11 BUN/CREATININE RATIO SEE NOTE: Normal 6 - 22 [facility] ChildrenYou[facility].; [facility], [facility]. CHOL/HDLC RATIO 3.3 Normal [facility]; [facility], [facility] GLOBULIN 2.5 Normal 1.9 - 3.7 [facility]; [facility], [facility] NON HDL CHOLESTEROL 162 Abnormal [facility]; [facility], [facility] TSH W/REFLEX TO FT4 0.96 {mIU/L} Normal [facility]; [facility], [facility] Laboratory - Chemistry and C hemistry - challengeon 12-06-2023 Albumin [Mass/Vol] 4.1 g/dL Normal 3.6 - 5.1 g/dL [facility]; [facility], [employer] Albumin/Globulin [Mass ratio] 1.6 {ratio} Normal 1.0 - 2.5 [facility].; [facility]. ALP [Catalytic activity/Vol] 73 U/L Normal 31 - 125 U/L [facility].; [facility], [facility]. ALT [Catalytic activity/Vol] 15 U/L Normal 6 - 29 U/L [facility].; [facility], [facility]. AST [Catalytic activity/Vol] 14 U/L Normal 10 - 35 U/L [facility].; [facility]. Bilirubin [Mass/Vol] 0.9 mg/dL Normal 0.2 - 1 .2 mg/dL [facility].; [facility], [facility]. Calcium [Mass/Vol] 8.9 mg/dL Normal 8.6 - 10. 2 mg/dL [facility].; [facility], [facility]. Chloride [Moles/Vol] 106 mmol/L Normal 98 - 11 0 mmol/L [facility].; [facility]. Cholesterol [Mass/Vol] 247 mg/dL Abnormal [facility].; [facility]. Cholesterol in HDL [Mass/Vol] 66 mg/dL Normal [facility].; [facility]. Cholesterol in LDL [Mass/Vol] 165 mg/dL Abnormal [facility].; [facility], [facility]. CO2 [Moles/Vol] 23 mmol/L Normal 20 - 32 mmol/L [facility].; [place] [employer] [facility]. Creatinine [Mass/Vol] 0.55 mg/dL Normal 0.50 - 0.99 mg/dL [facility].; [employer] [facility]. Ferritin [Mass/Vol] 11 ng/mL Abnormal 16 - 232 ng/mL [facility].; [place] [employer] [facility], [facility]. GFR/1.73 sq M.predicted among non-blacks MDRD (S/P/Bld) [Vol rate/Area] 114 mL/min/{1.73_m2} Normal [facility].; [place] [employer] [facility], [facility]. Glucose [Mass/Vol] 99 mg/dL Normal 65 - 99 mg/dL [facility].; [facility], [facility]. Potassium [Moles/Vol] 4.0 mmol/L Normal 3.5 - 5.3 mmol/L [facility].; [facility], [facility] Protein [Mass/Vol] 6.6 g/dL Normal 6.1 - 8.1 g/dL [facility].; [facility], [facility] Sodium [Moles/Vol] 138 mmol/L Normal 135 - 146 mmol/L [facility].; [facility], [facility] Triglyceride [Mass/Vol] 69 mg/dL Normal [facility]; [facility], [facility] Urea nitrogen [Mass/Vol] 19 mg/dL Normal 7 - 25 mg/dL [facility]; [facility], [facility] Laboratory - Hematology and Cell countson 12-06-2023 Basophils (Bld) [#/Vol] 0.074 10*3/uL Normal 0 - 200 {cells/uL} [facility]; [facility], [facility] Basophils/100 WBC (Bld) 0.9 % Normal [facility]; [facility], [facility] Eosinophils (Bld) [#/Vol] 0.164 10*3/uL Normal 15 - 500 {cells/uL} [facility].; [facility], [facility] Eosinophils/100 WBC (Bld) 2.0 % Normal [facility]; [facility], [facility] Erythrocyte distribution width (RBC) [Ratio] 14.4 % Normal 11.0 - 15.0 % [facility].; [facility], [facility] Hematocrit (Bld) [Volume fraction] 40.1 % Normal 35.0 - 45.0 % [facility], [facility].; [facility], [facility] Hemoglobin (Bld) [Mass/Vol] 12.9 g/dL Normal 11.7 - 15.5 g/dL [facility].; [facility], [facility] Lymphocytes (Bld) [#/Vol] 2.583 10*3/uL Normal 850 - 3900 {cells/uL} [facility].; [facility], [employer] Lymphocytes/100 WBC (Bld) 31.5 % Normal [facility].; [facility], [facility]. MCH (RBC) [Entitic mass] 26.1 pg Abnormal 27.0 - 33.0 pg [facility], [facility].; [facility], [facility]. MCHC (RBC) [Mass/Vol] 32.2 g/dL Normal 32.0 - 36.0 g/dL [facility], [facility].; [facility], [facility]. MCV (RBC) [Entitic vol] 81.0 fL Normal 80.0 - 100.0 fL [facility], [facility].; [facility], [facility]. Monocytes (Bld) [#/Vol] 0.648 10*3/uL Normal 200 - 950 {cells/uL} [facility], [facility].; [facility], [employer] Monocytes/100 WBC (Bld) 7.9 % Normal [facility], [facility].; [facility], [facility]. Neutrophils (Bld) [#/Vol] 4.731 10*3/uL Normal 1500 - 7800 {cells/uL} [facility].; [facility], [facility]. Neutrophils/100 WBC (Bld) 57.7 % Normal [facility].; [facility], [facility]. Platelet mean volume (Bld) [Entitic vol] 10.1 fL Normal 7.5 - 12.5 fL [facility], [facility].; [facility], [facility]. Platelets (Bld) [#/Vol] 366 10*3/uL Normal 140 - 400 [facility].; [facility], [facility]. RBC (Bld) [#/Vol] 4.95 10*6/uL Normal 3.80 - 5.1 0 {Million/uL} [facility].; [facility], [facility]. WBC (Bld) [#/Vol] 8.2 10*3/uL Normal 3.8 - 10.8 [facility], [facility].; [employer] [employer] [facility], [facility]. No Panel Informationon 12-06 BUN/CREATININE RATIO SEE NOTE: Normal 6 - 22 [facility] ChildrenYou[facility].; [place] [employer] [facility], [employer] CHOL/HDLC RATIO 3.7 Normal [facility].; [facility]. GLOBULIN 2.5 Normal 1.9 - 3.7 [facility]; [facility], [facility]. IRON, TOTAL 68 ug/dL Normal 40 - 190 ug/dL [facility].; [facility], [facility]. NON HDL CHOLESTEROL 181 Abnormal [facility]; [facility], [facility] HPV - AMPLIFIED PROBEon 12-13 HPV - AMPLIFIED PROBE Negative Normal Negative [facility] Comment on above: Performed By: #### [id number] #### [facility] [address] [place] [address] [facility]on 01-03-2023 [facility] Gynecologic Cytology Report Case: [id number] Authorizing Provider: Kate Alberto MD Collected: 01/03/2023 1319 Ordering Location: [facility] Received: 01/07/2023 1210 [place] First Screen: Malena Leos Specimen: Thin Prep Cerv/Endoc Screening, Cerv, Endocervical Pap smear for cervical cancer screening 12/20/22 Satisfactory for evaluation, endocervical/transform ation zone component present Negative for intraepithelial lesion or malignancy The Pap test is a screening test with inherent false negative and false positive rates. Greater sensitivity in Pap test screening can be attained with adding HPV testing as a co-test. The Pap test has never been proven to be effective at decreasing the incidence of cervical adenocarcinoma in screened versus unscreened populations. The Pap test has been shown to have a low sensitivity for the detection of endometrial abnormalities. Diagnostic follow-up studies are needed whenever suspicious signs or symptoms are evident, regardless of Pap test screening interpretation. Screening performed at [facility] utilizing computer-assisted technology, [address] [place] [address]. All results are generated under the supervision of a pathologist. Normal [facility] Comment on above: Performed By: #### G YNCASE #### [place] [address] [place] [address] Laboratory - Chemistry and C hemistry - challengeon 12-14-2022 Ferritin [Mass/Vol] 29 ng/mL Normal 16 - 232 ng/mL [facility]; [employer] Work Phone: TSH Qn 1.23 m[IU]/L Normal [facility] [employer].; [place] [employer]. Laboratory - Hematology and Cell countson 12-14-2022 Basophils (Bld) [#/Vol] 0.059 10*3/uL Normal 0 - 200 {cells/uL} [facility].; [employer]. Basophils/100 WBC (Bld) 0.6 % Normal [facility].; [employer] [employer]. Eosinophils (Bld) [#/Vol] 0.119 10*3/uL Normal 15 - 500 {cells/uL} [facility] [employer].; [place] [employer]. Eosinophils/100 WBC (Bld) 1.2 % Normal [facility] [employer].; [employer], [employer]. Erythrocyte distribution width (RBC) [Ratio] 15.0 % Normal 11.0 - 15.0 % [facility] [employer].; [place] [employer]. Hematocrit (Bld) [Volume fraction] 42.5 % Normal 35.0 - 45.0 % [employer] [employer].; [place] [employer], [employer]. Hemoglobin (Bld) [Mass/Vol] 13.3 g/dL Normal 11.7 - 15.5 g/dL [facility].; [place] [employer], [employer]. Lymphocytes (Bld) [#/Vol] 2.663 10*3/uL Normal 850 - 3900 {cells/uL} [facility] [employer] [place] [employer]. Lymphocytes/100 WBC (Bld) 26.9 % Normal [place] [employer] [facility].; [employer], [employer]. MCH (RBC) [Entitic mass] 25.6 pg Abnormal 27.0 - 33.0 pg [place] [employer].; [employer], [employer]. MCHC (RBC) [Mass/Vol] 31.3 g/dL Abnormal 32.0 - 36.0 g/dL [facility], [employer].; [employer] MCV (RBC) [Entitic vol] 81.7 fL Normal 80.0 - 100.0 fL [facility].; [facility]. Monocytes (Bld) [#/Vol] 0.713 10*3/uL Normal 200 - 950 {cells/uL} [facility].; [facility], [facility]. Monocytes/100 WBC (Bld) 7.2 % Normal [facility].; [facility], [facility]. Neutrophils (Bld) [#/Vol] 6.346 10*3/uL Normal 1500 - 7800 {cells/uL} [facility].; [facility], [facility]. Neutrophils/100 WBC (Bld) 64.1 % Normal [facility].; [facility], [facility]. Platelet mean volume (Bld) [Entitic vol] 10.1 fL Normal 7.5 - 12.5 fL [facility].; [facility], [facility]. Platelets (Bld) [#/Vol] 340 10*3/uL Normal 140 - 400 [facility].; [facility], [facility]. RBC (Bld) [#/Vol] 5.20 10*6/uL Abnormal 3.80 - 5.1 0 {Million/uL} [facility].; [facility], [facility]. WBC (Bld) [#/Vol] 9.9 10*3/uL Normal 3.8 - 10.8 [facility].; [facility], [facility]. No Panel Informationon 12-14 [id number] See Below Normal [facility].; [facility]You[facility] Work Phone: CLIENT CONTACT: SUSAN Rahman [facility]; [place] [employer] [facility] Work Phone: IRON, TOTAL 40 ug/dL Normal 40 - 190 ug/dL [facility]; [facility] [employer] [facility] Work Phone: TEST CODE: [id number] Normal [facility]; [place] [employer] Work Phone: TEST NAME: FERRITIN IRON, TOTAL Normal [facility]You[facility]; [place] [employer] [facility] Work Phone: Laboratory - Chemistry and C hemistry - challengeon 03-05-2022 Ferritin [Mass/Vol] 38 ng/mL Normal 16 - 232 ng/mL [facility].; [employer]. Laboratory - Hematology and Cell countson 03-05-2022 Basophils (Bld) [#/Vol] 0.067 10*3/uL Normal 0 - 200 {cells/uL} [facility].; [employer]. Basophils/100 WBC (Bld) 0.7 % Normal [facility].; [employer], [employer]. Eosinophils (Bld) [#/Vol] 0.133 10*3/uL Normal 15 - 500 {cells/uL} [place] [employer] [facility].; [employer]. Eosinophils/100 WBC (Bld) 1.4 % Normal [place] [employer] [facility].; [employer], [employer]. Erythrocyte distribution width (RBC) [Ratio] 13.9 % Normal 11.0 - 15.0 % [place] [employer] [facility].; [employer]. Hematocrit (Bld) [Volume fraction] 39.0 % Normal 35.0 - 45.0 % [place] [employer].; [employer], [employer]. Hemoglobin (Bld) [Mass/Vol] 12.8 g/dL Normal 11.7 - 15.5 g/dL [facility].; [employer], [employer]. Lymphocytes (Bld) [#/Vol] 2.917 10*3/uL Normal 850 - 3900 {cells/uL} [place] [employer] [facility].; [employer]. Lymphocytes/100 WBC (Bld) 30.7 % Normal [place] [employer] [facility].; [employer], [employer]. MCH (RBC) [Entitic mass] 27.0 pg Normal 27.0 - 33.0 pg [place] [employer].; [employer], [employer]. MCHC (RBC) [Mass/Vol] 32.8 g/dL Normal 32.0 - 36.0 g/dL [place] [employer] [facility], [employer].; [employer], [employer]. MCV (RBC) [Entitic vol] 82.3 fL Normal 80.0 - 100.0 fL [facility] [employer].; [facility] [employer]. Monocytes (Bld) [#/Vol] 0.751 10*3/uL Normal 200 - 950 {cells/uL} [facility].; [facility]. Monocytes/100 WBC (Bld) 7.9 % Normal [facility].; [facility], [employer]. Neutrophils (Bld) [#/Vol] 5.634 10*3/uL Normal 1500 - 7800 {cells/uL} [facility].; [place] [employer], [employer]. Neutrophils/100 WBC (Bld) 59.3 % Normal [facility].; [place] [employer], [employer]. Platelet mean volume (Bld) [Entitic vol] 9.8 fL Normal 7.5 - 12.5 fL [facility].; [place] [employer], [employer]. Platelets (Bld) [#/Vol] 396 10*3/uL Normal 140 - 400 [facility].; [place] [employer] [facility], [employer]. RBC (Bld) [#/Vol] 4.74 10*6/uL Normal 3.80 - 5.1 0 {Million/uL} [facility].; [place] [employer], [employer]. WBC (Bld) [#/Vol] 9.5 10*3/uL Normal 3.8 - 10.8 [facility].; [place] [employer], [employer]. No Panel Informationon 03-05 IRON, TOTAL 42 ug/dL Normal 40 - 190 ug/dL [facility].; [place] [employer], [facility]. Laboratory - Chemistry and C hemistry - challengeon 01-24-2022 Albumin [Mass/Vol] 4.3 g/dL Normal 3.6 - 5.1 g/dL [facility].; [place] [employer], [employer]. Albumin/Globulin [Mass ratio] 1.7 {ratio} Normal 1.0 - 2.5 [facility].; [place] [employer], [employer]. ALP [Catalytic activity/Vol] 85 U/L Normal 31 - 125 U/L [facility].; [place] [employer], [employer]. ALT [Catalytic activity/Vol] 16 U/L Normal 6 - 29 U/L [facility].; [facility], [facility]. AST [Catalytic activity/Vol] 13 U/L Normal 10 - 35 U/L [facility].; [facility], [facility]. Bilirubin [Mass/Vol] 0.9 mg/dL Normal 0.2 - 1 .2 mg/dL [facility].; [facility], [facility] Calcium [Mass/Vol] 9.3 mg/dL Normal 8.6 - 10. 2 mg/dL [facility].; [facility], [facility] Chloride [Moles/Vol] 105 mmol/L Normal 98 - 11 0 mmol/L [facility].; [facility], [facility]. Cholesterol [Mass/Vol] 226 mg/dL Abnormal [facility]; [facility], [facility] Cholesterol in HDL [Mass/Vol] 53 mg/dL Normal [facility]; [facility], [facility] Cholesterol in LDL [Mass/Vol] 148 mg/dL Abnormal [facility]; [facility], [facility] CO2 [Moles/Vol] 25 mmol/L Normal 20 - 32 mmol/L [facility].; [facility], [facility]. Creatinine [Mass/Vol] 0.76 mg/dL Normal 0.50 - 1.10 mg/dL [facility], [facility].; [facility], [facility]. CRP [Mass/Vol] 9.1 mg/L Abnormal [facility].; [facility], [facility]. GFR/1.73 sq M.predicted among blacks MDRD (S/P/Bld) [Vol rate/Area] 110 mL/min/{1.73_m2} Normal [facility].; [facility], [facility]. Glucose [Mass/Vol] 83 mg/dL Normal 65 - 99 mg/dL [facility].; [facility], [facility]. Potassium [Moles/Vol] 4.1 mmol/L Normal 3.5 - 5.3 mmol/L [facility], [facility].; [facility], [facility] Protein [Mass/Vol] 6.9 g/dL Normal 6.1 - 8.1 g/dL [facility], [facility].; [facility] Sodium [Moles/Vol] 139 mmol/L Normal 135 - 146 mmol/L [facility].; [facility], [facility] Triglyceride [Mass/Vol] 125 mg/dL Normal [facility].; [facility], [facility]. TSH Qn 1.09 m[IU]/L Normal [facility].; [place] [employer] [facility], [facility] Urea nitrogen [Mass/Vol] 13 mg/dL Normal 7 - 25 mg/dL [facility].; [facility], [facility] Laboratory - Hematology and Cell countson 01-24-2022 Basophils (Bld) [#/Vol] 0.067 10*3/uL Normal 0 - 200 {cells/uL} [facility].; [facility], [facility] Basophils/100 WBC (Bld) 0.8 % Normal [facility]; [facility], [facility] Eosinophils (Bld) [#/Vol] 0.101 10*3/uL Normal 15 - 500 {cells/uL} [facility].; [facility], [facility] Eosinophils/100 WBC (Bld) 1.2 % Normal [facility]; [facility], [facility] Erythrocyte distribution width (RBC) [Ratio] 14.2 % Normal 11.0 - 15.0 % [facility].; [place] [employer] [facility], [facility]. Hematocrit (Bld) [Volume fraction] 45.7 % Abnormal 35.0 - 45.0 % [facility].; [facility], [facility] Hemoglobin (Bld) [Mass/Vol] 14.6 g/dL Normal 11.7 - 15.5 g/dL [facility].; [facility], [facility] Lymphocytes (Bld) [#/Vol] 2.176 10*3/uL Normal 850 - 3900 {cells/uL} [facility].; [facility], [facility] Lymphocytes/100 WBC (Bld) 25.9 % Normal [facility].; [place] [employer], [facility]. MCH (RBC) [Entitic mass] 26.5 pg Abnormal 27.0 - 33.0 pg [facility].; [facility] MCHC (RBC) [Mass/Vol] 31.9 g/dL Abnormal 32.0 - 36.0 g/dL [facility].; [place] [employer] [facility], [facility]. MCV (RBC) [Entitic vol] 82.9 fL Normal 80.0 - 100.0 fL [facility].; [facility], [facility]. Monocytes (Bld) [#/Vol] 0.605 10*3/uL Normal 200 - 950 {cells/uL} [facility].; [place] [employer], [facility]. Monocytes/100 WBC (Bld) 7.2 % Normal [facility].; [facility], [facility]. Neutrophils (Bld) [#/Vol] 5.452 10*3/uL Normal 1500 - 7800 {cells/uL} [facility].; [place] [employer], [facility]. Neutrophils/100 WBC (Bld) 64.9 % Normal [facility].; [place] [employer], [facility]. Platelet mean volume (Bld) [Entitic vol] 9.8 fL Normal 7.5 - 12.5 fL [facility].; [place] [employer], [facility]. Platelets (Bld) [#/Vol] 397 10*3/uL Normal 140 - 400 [facility].; [place] [employer], [facility]. RBC (Bld) [#/Vol] 5.51 10*6/uL Abnormal 3.80 - 5.1 0 {Million/uL} [facility].; [place] [employer], [facility]. WBC (Bld) [#/Vol] 8.4 10*3/uL Normal 3.8 - 10.8 [facility].; [place] [employer], [facility]. No Panel Informationon 01-24 SHANDA SCREEN, IFA Negative Normal [facility].; [place] [employer], [facility]. BUN/CREATININE RATIO NOT APPLICABLE Normal 6 - 22 [facility].; [employer] CHOL/HDLC RATIO 4.3 Normal [facility].; [place] [employer], [employer]. eGFR NON-AFR. [place] 95 Normal [facility].; [employer]. GLOBULIN 2.6 Normal 1.9 - 3.7 [facility].; [employer] NON HDL CHOLESTEROL 173 Abnormal [facility]; [employer] RHEUMATOID FACTOR <14 Normal [facility].; [employer]. Laboratory - Chemistry and C hemistry - challengeon 11-14-2020 Bilirubin Ql (U) small Abnormal [facility].; [employer] Ketones Ql (U) Negative Normal [facility].; [employer]. pH (U) 7.0 [pH] Normal [place] [employer] [facility]; [employer] Specific gravity (U) [Rel density] 1.010 Normal [place] [employer] [facility]; [employer] Urobilinogen Qn (U) 0.2 mg/dL Normal [facility]; [employer]. Laboratory - Hematology and Cell countson 11-14-2020 Hemoglobin Ql (U) large Abnormal [facility]; [employer]. Laboratory - Specimen inform ationon 11-14-2020 Appearance (U) clear Normal [facility]; [employer]. Color (U) red Abnormal [place] [employer] [facility].; [employer]. Laboratory - Urinalysison Glucose Test strip (U) [Mass/Vol] Negative Normal [place] [employer] [facility]; [employer]. Leukocyte esterase Test strip Ql (U) small Abnormal [place] [employer] [facility].; [employer]. Nitrite Ql (U) Positive Abnormal [employer]. Protein Ql (U) > 300mg/dl Normal [employer]; [employer]. No Panel Informationon 11-14 CULTURE, URINE, ROUTINE SEE NOTE Abnormal [place] [employer].; [employer] Laboratory - Microbiology an d Antimicrobial susceptibilityon 10-24-2020 SARS-CoV-2 (COVID-19) RNA NEEMA+probe Ql (Unsp spec) Detected Abnormal [facility].; [facility]. Laboratory - Chemistry and C hemistry - challengeon 12-23-2019 Albumin [Mass/Vol] 4.2 g/dL Normal 3.4 - 4.8 g/dL [facility].; [facility], [facility] Albumin [Mass/Vol] 1.4 g/dL Normal 0.9 - 1.6 [facility].; [facility], [facility]. ALP [Catalytic activity/Vol] 71 U/L Normal 38 - 126 U/L [facility].; [facility], [facility]. ALT [Catalytic activity/Vol] 12 U/L Normal 8 - 35 U/L [facility].; [facility], [facility] ALT No additional P-5'-P [Catalytic activity/Vol] 12 U/L Normal 8 - 35 U/L [facility].; [facility], [facility]. Anion gap [Moles/Vol] 11 mmol/L Normal 10 - 20 mmol/L [facility].; [facility], [facility]. AST [Catalytic activity/Vol] 11 U/L Abnormal 13 - 39 U/L [facility].; [facility], [facility]. Bilirubin [Mass/Vol] 0.9 mg/dL Normal 0.0 - 1 .5 mg/dL [facility].; [facility], [facility]. Calcium [Mass/Vol] 9.2 mg/dL Normal 8.6 - 10. 2 mg/dL [facility].; [facility]. Chloride [Moles/Vol] 105 mmol/L Normal 98 - 10 7 mmol/L [facility].; [facility], [facility]. Cholesterol [Mass/Vol] 236 mg/dL Abnormal 0 - 200 mg/dL [facility].; [facility], [facility]. Cholesterol in HDL [Mass or moles/Vol] 47 mg/dL Normal 40 - 60 mg/dL [facility].; [facility], [facility]. Cholesterol in LDL [Mass/Vol] 164 mg/dL Abnormal 0 - 129 mg/dL [facility].; [facility], [facility]. Cholesterol.total/Ch olesterol in HDL [Mass ratio] 5.0 {ratio} Normal 0.0 - 5.0 [facility].; [facility], [facility] CO2 [Moles/Vol] 25.5 mmol/L Normal 21.0 - 31.0 mmol/L [facility]; [facility], [facility]. Comprehensive metabolic 2000 panel CMP with eGFR Normal [facility]; [facility], [facility] Creatinine [Mass/Vol] 0.7 mg/dL Normal 0.6 - 1.2 mg/dL [facility]; [facility], [facility]. GFR/1.73 sq M.predicted among blacks MDRD (S/P/Bld) [Vol rate/Area] mL/min/{1.73_m2} Normal 60 - 999 {ML/MINUTE} [facility], [facility].; [facility], [facility]. GFR/1.73 sq M.predicted MDRD (S/P/Bld) [Vol rate/Area] mL/min/{1.73_m2} Normal 60 - 999 {ML/MINUTE} [facility].; [facility], [facility]. Globulin (S) [Mass/Vol] 3.0 g/dL Normal 1.5 - 3.8 g/dL [facility], [facility].; [facility], [facility]. Glucose [Mass/Vol] 88 mg/dL Normal 74 - 106 mg/dL [facility], [facility].; [facility], [facility]. Lipid 1996 panel LIPID PROFILE Normal [facility]; [facility], [facility] Potassium [Moles/Vol] 3.8 mmol/L Normal 3.5 - 5.1 mmol/L [facility]; [facility], [facility] Protein [Mass/Vol] 7.2 g/dL Normal 6.4 - 8.3 g/dL [facility], [facility]; [facility], [facility]. Sodium [Moles/Vol] 138 mmol/L Normal 136 - 145 mmol/L [facility], [facility].; [facility], [facility]. Triglyceride [Mass/Vol] 127 mg/dL Normal 0 - 150 mg/dL [facility], [facility].; [facility], [facility] TSH Qn 1.46 m[IU]/L Normal 0.34 - 5.60 {uIU/ml} [employer].; [employer]. Urea nitrogen [Mass/Vol] 15 mg/dL Normal 6 - 20 mg/dL [place] [employer].; [employer], [employer] Urea nitrogen/Creatinine [Mass ratio] 21 {ratio} Normal 0 - 30 {ratio} [employer].; [employer]. Laboratory - Hematology and Cell countson 12-23-2019 Basophils (Bld) [#/Vol] 0.10 {3/UL} Normal 0.00 - 0.10 {3/UL} [place] [employer].; [employer] Basophils/100 WBC (Bld) 1.0 % Normal 0.0 - 2.0 % [place] [employer].; [employer], [employer]. CBC W Auto Differential panel (Bld) CBC + DIFF Normal [employer].; [employer] Eosinophils (Bld) [#/Vol] 0.10 {3/UL} Normal 0.00 - 0.50 {3/UL} [employer].; [employer]. Eosinophils/100 WBC (Bld) 1.1 % Normal 0.0 - 7.0 % [employer].; [employer], [employer]. Erythrocyte distribution width (RBC) [Ratio] 14.6 % Normal 12.0 - 15.6 % [employer].; [employer], [employer]. Hematocrit (Bld) [Volume fraction] 41.0 % Normal 34.0 - 46.0 % [employer].; [employer], [employer]. Hemoglobin (Bld) [Mass/Vol] 13.6 g/dL Normal 12.0 - 16.0 g/dL [employer].; [employer], [employer]. Lymphocytes (Bld) [#/Vol] 2.30 {3/UL} Normal 0.80 - 2.80 {3/UL} [employer], [employer].; [employer], [employer] Lymphocytes/100 WBC (Bld) 25.0 % Normal 20.0 - 45.0 % [employer].; [employer]. MCH (RBC) [Entitic mass] 27 pg Normal 27 - 33 pg [employer].; [employer] MCHC (RBC) [Mass/Vol] 33 {X10_3} Normal 32 - 36 {X10_3} [employer] MCV (RBC) [Entitic vol] 80 fL Normal 80 - 99 fL [employer].; [employer] Monocytes (Bld) [#/Vol] 0.70 {3/UL} Normal 0.20 - 1.00 {3/UL} [employer] Monocytes/100 WBC (Bld) 7.6 % Normal 0.0 - 10.0 % [employer].; [employer] Morphology Alfred (Bld) [Interp] N/A Normal [employer].; [employer] Neutrophils (Bld) [#/Vol] 6.00 {3/UL} Normal 1.50 - 7.10 {3/UL} [employer], [employer].; [employer], [employer]. Neutrophils/100 WBC (Bld) 65.3 % Normal 46.0 - 76.0 % [employer], [employer].; [employer] Platelet mean volume (Bld) [Entitic vol] 7.9 fL Normal 6.6 - 10.5 fL [employer], [employer].; [employer] Platelets (Bld) [#/Vol] 398 {3/UL} Normal 150 - 450 {3/UL} [employer].; [employer] RBC (Bld) [#/Vol] 5.15 {6/UL} Normal 4.10 - 5.3 0 {6/UL} [employer], [employer].; [employer] WBC (Bld) [#/Vol] 9.2 {3/UL} Normal 4.5 - 10.8 {3/UL} [employer], [employer]. No Panel Informationon 12-23 AGE 44 {years} Normal [employer]. MANUAL DIFF N/A Normal [employer].; [employer]. No Panel Informationon 12-09 [id number] SEE NOTE Normal [employer].; [employer]. CLINICAL INFORMATION: SEE NOTE Normal [employer].; [employer]. CAPABILITY LEAD: SEE NOTE Normal [employer].; [employer]. INTERPRETATION/RESUL T: SEE NOTE Normal [employer].; [employer]. LMP: SEE NOTE Normal [employer].; [employer]. PREV. BX: SEE NOTE Normal [employer].; [employer]. PREV. PAP: SEE NOTE Normal [employer].; [employer]. SOURCE: SEE NOTE Normal [employer]; [employer]. STATEMENT OF ADEQUACY: SEE NOTE Normal [employer].; [employer]. Vital Signs Date Time Vital Sign Value Performing Clinician Facility 04-28-2025 10:36-0400 Body height 167.6 cm Tequila Hoffmann MD Work Phone: [facility] 04-28-2025 10:36-0400 Body mass index (BMI) [Ratio] 41.32 kg/m2 Tequila Hoffmann MD Work Phone: [facility] 04-28-2025 10:36-0400 Body weight 116.12 kg Tequila Hoffmann MD Work Phone: [facility] 04-28-2025 10:36-0400 Diastolic blood pressure 70 mm[Hg] Tequila Hoffmann MD Work Phone: [facility] 04-28-2025 10:36-0400 Systolic blood pressure 130 mm[Hg] Tequila Hoffmann MD Work Phone: [facility] 03-25-2025 08:31-0400 Body height 167.6 cm Tequila Hoffmann MD Work Phone: [facility] 03-25-2025 08:31-0400 Body mass index (BMI) [Ratio] 41.48 kg/m2 Tequila Hoffmann MD Work Phone: [facility] 03-25-2025 08:31-0400 Body weight 116.57 kg Tequila Hoffmann MD Work Phone: [facility] 03-25-2025 08:31-0400 Diastolic blood pressure 92 mm[Hg] Tequila Hoffmann MD Work Phone: [facility] 03-25-2025 08:31-0400 Systolic blood pressure 136 mm[Hg] Tequila Hoffmann MD Work Phone: [facility] 03-19-2025 10:10-0400 Diastolic blood pressure 84 mm[Hg] Kaylah Katey CUSTOMER ADVISOR SPECIALIST.PATTERN ASSEMBLER Work Phone: [facility] 03-19-2025 10:10-0400 Systolic blood pressure 128 mm[Hg] Kaylah Katey CUSTOMER ADVISOR SPECIALIST.PATTERN ASSEMBLER Work Phone: [facility] 03-19-2025 09:23-0400 Body weight 117.66 kg Kaylah Cloverdale CUSTOMER ADVISOR SPECIALIST.PATTERN ASSEMBLER Work Phone: [facility] 03-18-2025 09:05-0400 Diastolic blood pressure 90 mm[Hg] Ct (I-Stat) [facility] 03-18-2025 09:05-0400 Heart rate 68 /min Ct (I-Stat) [facility] 03-18-2025 09:05-0400 Respiratory rate 18 /[facility]-18-[facility] 09:05-0400 SaO2% (BldA) [Mass fraction] 99 % Ct (I-Stat) [facility] 03-18-2025 09:05-0400 Systolic blood pressure 127 mm[Hg] Ct (I-Stat) [facility] 03-01-2025 07:32-0400 Body weight 117.48 kg Kaylah Cloverdale CUSTOMER ADVISOR SPECIALIST.PATTERN ASSEMBLER Work Phone: [facility] 03-01-2025 07:32-0400 Diastolic blood pressure 90 mm[Hg] Kaylah Katey CUSTOMER ADVISOR SPECIALIST.PATTERN ASSEMBLER Work Phone: [facility] 03-01-2025 07:32-0400 Systolic blood pressure 142 mm[Hg] Kaylah Katey CUSTOMER ADVISOR SPECIALIST.PATTERN ASSEMBLER Work Phone: [facility] 12-11-2024 08:05-0500 Body height 170.18 cm Ese Lux [facility], [facility].; [facility], [facility]. 12-11-2024 08:05-0500 Body mass index (BMI) [Ratio] 40.41 kg/m2 Ese Lux [facility], [facility].; [facility], [facility]. 12-11-2024 08:05-0500 Body surface area Derived from formula 2.25 m2 Ese Lux [facility], [facility].; [facility], [facility]. 12-11-2024 08:05-0500 Body weight 117.03 kg Ese Lux [facility], [facility].; [place] [employer] [facility], [facility]. 12-11-2024 08:05-0500 Diastolic blood pressure 82 mm[Hg] Ese Lux [facility], [facility].; [employer] [facility] Comment on above: Patient Position: Sitting; Cuff Location : Left Arm; Cuff Size: Standard 12-11-2024 08:05-0500 Heart rate 76 /min Ese Lux MEDICAL OFFICE PROFESSIONAL INSTRUCTOR [facility], [facility].; [employer] [facility], [facility] Comment on above: Pattern: Regular 12-11-2024 08:05-0500 Systolic blood pressure 133 mm[Hg] Eseyang Lux [facility], [facility].; [employer] [facility] Comment on above: Patient Position: Sitting; Cuff Location : Left Arm; Cuff Size: Standard 12-30-2023 09:37-0500 Body temperature 97.8 [degF] Ashok Montague MEDICAL OFFICE PROFESSIONAL INSTRUCTOR [facility], [facility].; [employer] 12-30-2023 09:37-0500 Body weight 113.85 kg Ashok Montague MEDICAL OFFICE PROFESSIONAL INSTRUCTOR [facility], [facility].; [place] [employer] [facility], [employer]. 12-30-2023 09:37-0500 Diastolic blood pressure 67 mm[Hg] Ashok Eddiheriberto LEVY [facility], [facility].; [place] [employer] [facility], [employer]. Comment on above: Patient Position: Sitting; Cuff Location : Left Arm; Cuff Size: Standard 12-30-2023 09:37-0500 Heart rate 82 /min Ashok Montague LPN [facility] [employer], [employer]. Comment on above: Pattern: Regular 12-30-2023 09:37-0500 Inhaled oxygen concentration 20 % Ashok Montague LPN [facility] [place] [employer] [facility], [employer]. Comment on above: Room air 12-30-2023 09:37-0500 Inhaled oxygen concentration 21 % Ashok Montague LPN [facility] [employer], [employer]. Comment on above: Room air 12-30-2023 09:37-0500 SaO2% (BldA) [Mass fraction] 98 % Ashok Montague MEDICAL OFFICE PROFESSIONAL INSTRUCTOR [facility] [employer], [employer]. 12-30-2023 09:37-0500 Systolic blood pressure 122 mm[Hg] [facility] [employer] [facility], [employer]. Comment on above: Patient Position: Sitting; Cuff Location : Left Arm; Cuff Size: Standard 11-29-2023 13:44-0500 Body height 170.18 cm Susan Mckeon MEDICAL OFFICE PROFESSIONAL INSTRUCTOR [facility] [place] [employer] [facility], Inc[facility] 11-29-2023 13:44-0500 Body mass index (BMI) [Ratio] 39.47 kg/m2 Susan Mckeon MEDICAL OFFICE PROFESSIONAL INSTRUCTOR [facility], [facility].; [place] [employer] [facility], [employer]. 11-29-2023 13:44-0500 Body surface area Derived from formula 2.23 m2 Susan Mckeon MEDICAL OFFICE PROFESSIONAL INSTRUCTOR [facility], [facility].; [place] [employer], [employer]. 11-29-2023 13:44-0500 Body weight 114.31 kg Susan Mckeon MEDICAL OFFICE PROFESSIONAL INSTRUCTOR [facility], [facility].; [place] [employer], [employer]. 11-29-2023 13:44-0500 Diastolic blood pressure 80 mm[Hg] Susan Ballabach MEDICAL OFFICE PROFESSIONAL INSTRUCTOR [facility] [employer]. Comment on above: Patient Position: Sitting; Cuff Location : Left Arm; Cuff Size: Standard 11-29-2023 13:44-0500 Heart rate 83 /min Susan Ballabach MEDICAL OFFICE PROFESSIONAL INSTRUCTOR [facility] [employer] Comment on above: Pattern: Regular 11-29-2023 13:44-0500 Systolic blood pressure 139 mm[Hg] Susan Ballabach MEDICAL OFFICE PROFESSIONAL INSTRUCTOR [facility] [employer]. Comment on above: Patient Position: Sitting; Cuff Location : Left Arm; Cuff Size: Standard 12-14-2022 13:11-0500 Body height 170.18 cm Susan Mckeon [facility] [employer] 12-14-2022 13:11-0500 Body mass index (BMI) [Ratio] 38.84 kg/m2 Susan Gonzalez Linda [facility] [employer], [employer]. 12-14-2022 13:11-0500 Body surface area Derived from formula 2.22 m2 Susan M Linda [facility] [employer] [facility], [facility].; [employer], [employer]. 12-14-2022 13:11-0500 Body weight 112.49 kg Susan Mckeon [facility] [employer] [facility], [facility].; [employer], [employer]. 12-14-2022 13:11-0500 Diastolic blood pressure 80 mm[Hg] Susan Ballabach MEDICAL OFFICE PROFESSIONAL INSTRUCTOR [facility] [employer]. Comment on above: Patient Position: Sitting; Cuff Location : Left Arm; Cuff Size: Standard 12-14-2022 13:11-0500 Heart rate 74 /min Susan Ballabach MEDICAL OFFICE PROFESSIONAL INSTRUCTOR [place] [employer] [facility] [employer].; [employer]. Comment on above: Pattern: Regular 12-14-2022 13:11-0500 Systolic blood pressure 126 mm[Hg] Susan Carlos BalLinda MEDICAL OFFICE PROFESSIONAL INSTRUCTOR [place] [employer] [facility] Center[facility] Inc.; [employer]. Comment on above: Patient Position: Sitting; Cuff Location : Left Arm; Cuff Size: Standard 03-12-2022 14:43-0400 Body height 170.18 cm Susan Gonzalez Linda [facility] [employer] [facility], [facility].; [employer]. 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 03-12-2022 14:43-0400 Body weight 117.03 kg Susan Gonzalez Linda [facility].; [employer]. 03-12-2022 14:43-0400 Diastolic blood pressure 85 mm[Hg] Susan Gonzalez Linda [facility] [employer].; [employer]. Comment on above: Patient Position: Sitting; Cuff Location : Right Arm; Cuff Size: Standard 03-12-2022 14:43-0400 Heart rate 65 /min Susan Gonzalez Linda [facility] CenterClasesD [facility], [employer].; [employer]. Comment on above: Pattern: Regular 03-12-2022 14:43-0400 Systolic blood pressure 135 mm[Hg] Susan Ballabach MEDICAL OFFICE PROFESSIONAL INSTRUCTOR [place] [employer] [facility], Inc.; [employer]. Comment on above: Patient Position: Sitting; Cuff Location : Right Arm; Cuff Size: Standard 01-24-2022 11:15-0400 Body height 170.18 cm Susan Pedrazaach [facility] [employer] [facility], [employer].; [employer]. 01-24-2022 11:15-0400 Body mass index (BMI) [Ratio] 39.94 kg/m2 Susan Carlos Linda [facility] [employer]. 01-24-2022 11:15-0400 Body surface area Derived from formula 2.24 m2 Susan Gonzalez Linda [facility] CenterSunModular Inc.; [employer]. 01-24-2022 11:15-0400 Body weight 115.67 kg Susan Mckeon [facility], [facility].; [place] [employer] [facility], [employer]. 01-24-2022 11:15-0400 Diastolic blood pressure 87 mm[Hg] Susan Gonzalez Linda [facility], [facility].; [place] [employer] [facility], [employer]. Comment on above: Patient Position: Sitting; Cuff Location : Left Arm; Cuff Size: Standard 01-24-2022 11:15-0400 Heart rate 79 /min [facility].; [place] [employer] [facility], Inc[facility] Comment on above: Pattern: Regular 01-24-2022 11:15-0400 Systolic blood pressure 130 mm[Hg] Susan Gonzalez Linda [facility], [facility].; [place] [employer] [facility], Inc. Comment on above: Patient Position: Sitting; Cuff Location : Left Arm; Cuff Size: Standard 10-23-2021 15:25-0500 Body height 170.18 cm Nannette Moore [facility], [facility].; [place] [employer] [facility], Inc[facility] 10-23-2021 15:25-0500 Body mass index (BMI) [Ratio] 40.41 kg/m2 [facility] [place] [facility], [facility].; [place] [employer] [facility], Inc[facility] 10-23-2021 15:25-0500 Body surface area Derived from formula 2.25 m2 [facility] Teresa [facility], [facility].; [place] [employer] [facility], Inc[facility] 10-23-2021 15:25-0500 Body temperature 97.4 [degF] [facility] [place] [facility], [facility].; [employer], [employer]. Comment on above: Method: Tympanic 10-23-2021 15:250500 Body weight 117.03 kg Ciera Teresa [facility], [facility].; [place] [employer] [facility], Inc[facility] 10-23-2021 15:25-0500 Diastolic blood pressure 86 mm[Hg] Nannette Moore [facility], [facility].; [employer], [employer]. Comment on above: Patient Position: Sitting; Cuff Location : Left Arm; Cuff Size: Large 10-23-2021 15:25-0500 Heart rate 90 /min Nannette Moore LPN [facility] [place] [employer] [facility], [employer]. Comment on above: Pattern: Regular 10-23-2021 15:25-0500 Systolic blood pressure 144 mm[Hg] Nannette Moore LPN [facility] [employer], [employer]. Comment on above: Patient Position: Sitting; Cuff Location : Left Arm; Cuff Size: Large 10-10-2021 10:42-0500 Body height 170.18 cm Nannette Moore MEDICAL OFFICE PROFESSIONAL INSTRUCTOR [facility] [place] [employer] [facility], [employer]. 10-10-2021 10:42-0500 Body mass index (BMI) [Ratio] 40.41 kg/m2 Nannette Moore [facility] [place] [employer], [employer] 10-10-2021 10:42-0500 Body surface area Derived from formula 2.25 m2 Ciera Teresa [facility] [place] [employer] [facility], [employer]. 10-10-2021 10:42-0500 Body temperature 97.9 [degF] Nannette Moore [facility], [facility].; [employer] [facility], [employer]. Comment on above: Method: Tympanic 10-10-2021 10:42-0500 Body weight 117.03 kg Nannette Moore MEDICAL OFFICE PROFESSIONAL INSTRUCTOR [facility] [employer] 10-10-2021 10:42-0500 Diastolic blood pressure 86 mm[Hg] Nannette Moore MEDICAL OFFICE PROFESSIONAL INSTRUCTOR [facility] [place] [employer], [employer]. Comment on above: Patient Position: Sitting; Cuff Location : Left Arm; Cuff Size: Large 10-10-2021 10:42-0500 Heart rate 87 /min Nannette Moore MEDICAL OFFICE PROFESSIONAL INSTRUCTOR [facility] [employer]. Comment on above: Pattern: Regular 10-10-2021 10:42-0500 Inhaled oxygen concentration 20 % Nannette Moore [facility] [employer]. Comment on above: Room air 10-10-2021 10:42-0500 Inhaled oxygen concentration 21 % Nannette Moore MEDICAL OFFICE PROFESSIONAL INSTRUCTOR [facility] [employer]. Comment on above: Room air 10-10-2021 10:42-0500 SaO2% (BldA) [Mass fraction] 98 % Nannette Moore [facility] [employer]. 10-10-2021 10:42-0500 Systolic blood pressure 149 mm[Hg] Nannette Moore [facility], [facility].; [employer]. Comment on above: Patient Position: Sitting; Cuff Location : Left Arm; Cuff Size: Large 06-26-2021 14:040 Body height 170.18 cm Susan Mckeon [facility], [facility].; [employer], [employer]. 06-26-2021 14:110400 Body mass index (BMI) [Ratio] 40.41 kg/m2 Susan Gonzalez Linda [facility], [facility].; [employer], [employer]. 06-26-2021 14:110400 Body surface area Derived from formula 2.25 m2 Susan Mckeon [facility], [facility].; [employer], [employer]. 06-26-2021 14:040 Body weight 117.03 kg Susan Gonzalez Linda [facility], [facility].; [employer], [employer]. 06-26-2021 14:110400 Diastolic blood pressure 86 mm[Hg] Susan Mckeon MEDICAL OFFICE PROFESSIONAL INSTRUCTOR [facility] [employer]. Comment on above: Patient Position: Sitting; Cuff Location : Right Arm; Cuff Size: Standard 06-26-2021 14:110400 Heart rate 72 /min Susan Mckeon [facility], [employer].; [employer]. Comment on above: Pattern: Regular 06-26-2021 14:11-0400 Systolic blood pressure 126 mm[Hg] Susan Mckeon MEDICAL OFFICE PROFESSIONAL INSTRUCTOR [place] [employer] [facility], Inc.; [employer]. Comment on above: Patient Position: Sitting; Cuff Location : Right Arm; Cuff Size: Standard 05-25-2021 11:26-0400 Body height 170.18 cm Susan Mckeon [facility] [place] [employer] [facility] CenterYouSticker [facility]. 05-25-2021 11:26-0400 Body mass index (BMI) [Ratio] 39.47 kg/m2 Susan Pedrazaach [facility] [employer] [facility], Inc. 05-25-2021 11:26-0400 Body surface area Derived from formula 2.23 m2 Susan Gonzalez Linda [facility] [employer] [facility], Inc.; [employer] [facility]. 05-25-2021 11:26040 Body weight 114.31 kg Suasn Mckeon [facility], [facility].; [employer] [facility]. 05-25-2021 11:26-0400 Diastolic blood pressure 83 mm[Hg] Susan Ballabach [facility].; [employer]. Comment on above: Patient Position: Sitting; Cuff Location : Right Arm; Cuff Size: Standard 05-25-2021 11:26-0400 Heart rate 76 /min Susan Pedrazaach [facility] [employer]. Comment on above: Pattern: Regular 05-25-2021 11:26-0400 Systolic blood pressure 136 mm[Hg] Susan Mckeon [facility], [facility].; [employer]. Comment on above: Patient Position: Sitting; Cuff Location : Right Arm; Cuff Size: Standard 11-14-2020 15:07-0500 Body height 170.18 cm Susan Ballabach MEDICAL OFFICE PROFESSIONAL INSTRUCTOR [facility] [employer]. 11-14-2020 15:07-0500 Body mass index (BMI) [Ratio] 40.72 kg/m2 Susan Mckeon [facility] [employer] [facility], Inc.; [employer], [employer]. 11-14-2020 15:07-0500 Body surface area Derived from formula 2.26 m2 Susan Ballabach [facility] [employer] [facility], Inc.; [employer], [employer]. 11-14-2020 15:07-0500 Body temperature 99 [degF] Susan Ballabach [facility] [employer]. Comment on above: Method: Tympanic 11-14-2020 15:07-0500 Body weight 117.94 kg Susan Mckeon [facility] [employer] 11-14-2020 15:07-0500 Diastolic blood pressure 90 mm[Hg] Susan Mckeon [facility] [employer]. Comment on above: Patient Position: Sitting; Cuff Location : Left Arm; Cuff Size: Standard 11-14-2020 15:07-0500 Heart rate 97 /min Susan Mckeon [facility] [employer]. Comment on above: Pattern: Regular 11-14-2020 15:07-0500 Systolic blood pressure 138 mm[Hg] Susan Mckeon [facility] [employer], [employer]. Comment on above: Patient Position: Sitting; Cuff Location : Left Arm; Cuff Size: Standard 10-24-2020 10:49-0500 Body height 170.18 cm Susan Mckeon [facility] [employer], [employer]. 10-24-2020 10:49-0500 Body mass index (BMI) [Ratio] 40.41 kg/m2 Susan Mckeon [facility] [employer], [employer] 10-24-2020 10:49-0500 Body surface area Derived from formula 2.25 m2 Susan Gonzalez Linda [facility], [facility].; [employer]. 10-24-2020 10:49-0500 Body temperature 97.8 [degF] Susan Mckeon [facility] [employer] [facility], [facility].; [employer], [employer]. Comment on above: Method: Tympanic 10-24-2020 10:49-0500 Body weight 117.03 kg Susan Mckeon [facility].; [employer] 10-24-2020 10:49-0500 Diastolic blood pressure 83 mm[Hg] Susan Mckeon [facility] [employer] [facility] Center[facility] [employer].; [employer]. Comment on above: Patient Position: Sitting; Cuff Location : Left Arm; Cuff Size: Standard 10-24-2020 10:49-0500 Heart rate 88 /min Susan Carlos Mckeon [facility], [facility].; [place] [employer] [facility] Center[facility] [employer]. Comment on above: Pattern: Regular 10-24-2020 10:49-0500 Inhaled oxygen concentration 20 % Susan Gonzalez [place] [facility], [facility] [place] [employer] [facility] Center[facility]. Comment on above: Room air 10-24-2020 10:49-0500 Inhaled oxygen concentration 21 % Susan Gonzalez Linda [facility], [facility].; [employer]. Comment on above: Room air 10-24-2020 10:49-0500 SaO2% (BldA) [Mass fraction] 99 % Susan M Linda [facility], [facility].; [employer]. 10-24-2020 10:49-0500 Systolic blood pressure 133 mm[Hg] Susan Carlos Mckeon [facility], [facility].; [employer]. Comment on above: Patient Position: Sitting; Cuff Location : Left Arm; Cuff Size: Standard 06-24-2020 15:130400 Body height 170.18 cm Lori Albert LPN [facility], [facility].; [place] [employer] [facility]. 06-24-2020 15:13-0400 Body mass index (BMI) [Ratio] 41.03 kg/m2 Lori Albert LPN [facility] [place] [employer] [facility], [employer]. 06-24-2020 15:13-0400 Body surface area Derived from formula 2.27 m2 Lori Albert LPN [facility], [facility].; [employer]. 06-24-2020 15:13-0400 Body temperature 98.1 [degF] Lori Albert [facility] [employer] [facility] CenterYouSticker [facility].; [employer]. Comment on above: Method: Tympanic 06-24-2020 15:13-0400 Body weight 118.84 kg Lori Albert LPN [facility] [employer]. 06-24-2020 15:13-0400 Diastolic blood pressure 67 mm[Hg] Lori Jaramillomoris LEVY [facility] [employer] [facility], [employer]. Comment on above: Patient Position: Sitting; Cuff Location : Left Arm; Cuff Size: Standard 06-24-2020 15:13-0400 Heart rate 82 /min Lori Albert LPN [facility] [employer] Comment on above: Pattern: Regular 06-24-2020 15:130400 Inhaled oxygen concentration 20 % Lori Albert [facility] [employer] Comment on above: Room air 06-24-2020 15:0400 Inhaled oxygen concentration 21 % Lori Albert [facility] [employer], [employer]. Comment on above: Room air 06-24-2020 15:13-0400 SaO2% (BldA) [Mass fraction] 97 % Lorikaroline Albert [facility] [employer] 06-24-2020 15:13-0400 Systolic blood pressure 123 mm[Hg] Lori Bety [facility] [employer], [employer]. Comment on above: Patient Position: Sitting; Cuff Location : Left Arm; Cuff Size: Standard 12-09-2019 13:25-0500 Body height 170.18 cm Lori Albert LPN [facility] [place] [employer] [facility], Inc[facility] 12-09-2019 13:25-0500 Body mass index (BMI) [Ratio] 39.47 kg/m2 Lori Albert LPN [facility] [place] [employer] [facility], [employer]. 12-09-2019 13:25-0500 Body surface area Derived from formula 2.23 m2 Lori Albert MEDICAL OFFICE PROFESSIONAL INSTRUCTOR [facility] [place] [employer] [facility], Inc[facility] 12-09-2019 13:25-0500 Body weight 114.31 kg Lori Albert LPN [facility] [employer] 12-09-2019 13:25-0500 Diastolic blood pressure 79 mm[Hg] Lori Jarviserd MEDICAL OFFICE PROFESSIONAL INSTRUCTOR [facility], [employer]. Comment on above: Patient Position: Sitting; Cuff Location : Left Arm; Cuff Size: Standard 12-09-2019 13:25-0500 Heart rate 81 /min Lori Wemoris LEVY [facility] [employer] [facility], Inc[facility] Comment on above: Pattern: Regular 12-09-2019 13:25-0500 Inhaled oxygen concentration 20 % Lori Albert LPN [facility] [place] [employer] [facility], [employer]. Comment on above: Room air 12-09-2019 13:25-0500 Inhaled oxygen concentration 21 % Lori Albert LPN [facility] [place] [employer] [facility], Inc[facility] Comment on above: Room air 12-09-2019 13:25-0500 SaO2% (BldA) [Mass fraction] 98 % Lori Clintmoris LEVY [facility] [place] [employer] [facility], Inc[facility] 12-09-2019 13:25-0500 Systolic blood pressure 129 mm[Hg] Lori Bety LEVY [facility] [place] [employer] [facility], [employer]. Comment on above: Patient Position: Sitting; Cuff Location : Left Arm; Cuff Size: Standard Encounters Encounter Date Encounter Type Care Provider Facility Start: 05-21-2025 ambulatory Tequila Ruano Facility:[facility] Start: 05-13-2025 Encounter for other preprocedural examination Tequila Ruano [facility] Start: 04-28-2025 End: 04-28-2025 ambulatory TEQUILA HOFFMANN Facility:[facility] Start: 04-28-2025 End: 04-28-2025 Patient encounter procedure Tequila Hoffmann MD Work Phone: OB/Gynecology Comment on above: Uterine leiomyoma, u nspecified location (Primary Dx); Abnormal uterine bleeding (AUB); Pre-op exam Start: 04-28-2025 End: 04-28-2025 Preprocedural examination done Tequila Hoffmann MD Work Phone: [facility] Start: 03-25-2025 End: 03-25-2025 ambulatory TEQUILA HOFFMANN Facility:[facility] Start: 03-25-2025 End: 03-25-2025 Patient encounter procedure Tequila Hoffmann MD Work Phone: OB/Gynecology Comment on above: Abnormal uterine ble eding (Primary Dx); Thickened endometrium; Submucous leiomyoma of uterus; Menorrhagia with irregular cycle; Generalized abdominal pain Start: 03-19-2025 End: 03-19-2025 Patient encounter procedure Kaylah Del Toro APRN.PATTERN ASSEMBLER Work Phone: OB/Gynecology Comment on above: Abnormal uterine ble eding (Primary Dx) Start: 03-19-2025 End: 03-19-2025 ambulatory KAYLAH KATEY Facility:[facility] Start: 03-18-2025 ambulatory [facility] Facility:[facility] Start: 03-18-2025 End: 03-18-2025 Subsequent hospital visit by physician [facility] (I-Stat) RADIO [facility] Comment on above: Chest pain, unspecif ied [R07.9] Start: 03-17-2025 End: 03-17-2025 Telephone follow-up Marielena Calhoun PA-C Work Phone: [facility] Start: 03-15-2025 End: 03-15-2025 Telephone encounter Kaylah Del Toro APRN.PATTERN ASSEMBLER Work Phone: OB/Gynecology Comment on above: Heavy Bleeding Start: 03-15-2025 End: 03-15-2025 Emergency department patient visit MARIELENA CALHOUN [facility] Start: 03-09-2025 End: 03-16-2025 Follow-up encounter Kaylah Del Toro APRN.PATTERN ASSEMBLER Work Phone: OB/Gynecology Comment on above: Results Start: 03-09-2025 End: 03-09-2025 Telephone encounter Kaylah Del Toro APRN.CNP Work Phone: OB/Gynecology Comment on above: Results Start: 03-05-2025 End: 03-05-2025 ambulatory KAYLAH DEL TORO Facility:[facility] Start: 03-01-2025 End: 03-01-2025 Patient encounter procedure Kaylah Del Toro SHAMA Work Phone: OB/Gynecology Comment on above: Abnormal uterine ble eding (AUB) (Primary Dx); Uterine leiomyoma, unspecified location Start: 03-01-2025 End: 03-01-2025 [facility] KAYLA[facility] DEL TORO Facility:[facility] Start: 02-24-2025 End: 02-24-2025 Historical Summary Marielena Karla VALENCIA Work Phone: [facility] Start: 02-19-2025 End: 02-22-2025 Telephone encounter Lori Shook MD Work Phone: OB/Gynecology Comment on above: ED Follow-up Start: 02-19-2025 End: 02-19-2025 Telephone follow-up Marielenamely Calhoun PA-C Work Phone: [facility] Start: 02-19-2025 [facility] Start: 02-18-2025 End: 02-18-2025 Emergency department patient visit MARIELENA J [facility] Start: 02-09-2025 End: 05-11-2025 Transcribe Orders Sherrie Monson MD Work Phone: [employer] Comment on above: Aneurysm of the asce nding aorta, without rupture (HCC) (Primary Dx); Chest pain, unspecified; Shortness of breath; Obesity, unspecified Start: 01-28-2025 End: 04-29-2025 Transcribe Orders Sherrie Monson MD Work Phone: [employer] Comment on above: Chest pain, unspecif ied (Primary Dx); Aneurysm of the ascending aorta, without rupture (HCC); Shortness of breath; Obesity, unspecified Start: 01-22-2025 End: 01-22-2025 [facility] Start: 12-21-2024 End: 12-21-2024 Orders Marielena Calhoun PA-C Work Phone: [employer]. Start: 12-21-2024 End: 12-21-2024 ambulatory MARIELENA CALHOUN [facility] Start: 12-16-2024 End: 12-16-2024 Orders Marielena Calhoun PA-C Work Phone: [employer]. Start: 12-14-2024 End: 12-14-2024 Orders Marielena Calhoun PA-C Work Phone: [employer]. Start: 12-11-2024 Follow-up encounter Marielena Pa lmer PA-C Work Phone: [employer]. Start: 12-11-2024 End: 12-11-2024 Office outpatient visit 25 minutes Marielena Calhoun PA-C Work Phone: [employer]. Start: 12-11-2024 ambulatory [facility] Start: 01-03-2024 End: 01-03-2024 Orders Marielena Calhoun PA-C Work Phone: [employer]. Start: 12-30-2023 End: 12-30-2023 Office outpatient visit 15 minutes Marielena Calhoun PA-C Work Phone: [employer] Start: 12-12-2023 End: 12-12-2023 Orders Marielena Calhoun PA-C Work Phone: [employer]. Start: 11-29-2023 End: 11-29-2023 Office outpatient visit 25 minutes Marielena Calhoun PA-C Work Phone: [employer]. Start: 11-29-2023 Review Marielena Calhoun PA-C Work Phone: [employer]. Start: 01-03-2023 End: 01-03-[address] [facility] Start: 01-03-2023 Encounter for gynecological examination (general) (routine) without abnormal findings [facility] Start: 12-24-2022 End: 12-24-2022 Orders Marielena Calhoun PA-C Work Phone: [employer]. Start: 12-20-2022 End: 12-20-2022 Orders Marielena Calhoun PA-C Work Phone: [employer]. Start: 12-14-2022 End: 12-14-2022 Office outpatient visit 25 minutes Marielena Calhoun PA-C Work Phone: [employer]. Start: 03-12-2022 End: 03-12-2022 Office outpatient visit 15 minutes Marielena Cahloun PA-C Work Phone: [employer] Start: 03-05-2022 End: 03-05-2022 Orders Marielena Calhoun PA-C Work Phone: [employer] Start: 01-31-2022 End: 01-31-2022 Medication Marielena Calhoun PA-C Work Phone: [employer] Start: 01-29-2022 End: 01-29-2022 Orders Marielena Calhoun PA-C Work Phone: [employer] Start: 01-24-2022 End: 01-24-2022 Patient encounter procedure Marielena Calhoun PA-C Work Phone: [employer]. Start: 10-23-2021 End: 10-23-2021 Office outpatient visit 15 minutes Marielena Calhoun PA-C Work Phone: [employer] Start: 10-13-2021 End: 10-13-2021 Medication Marielena Calhoun PA-C Work Phone: [employer] Start: 10-10-2021 End: 10-10-2021 Office outpatient visit 15 minutes Marielena Calhoun PA-C Work Phone: [employer] Start: 06-26-2021 End: 06-26-2021 Office outpatient visit 15 minutes Marielena Calhoun PA-C Work Phone: [employer]. Start: 05-25-2021 End: 05-25-2021 Office outpatient visit 15 minutes Marielena Calhoun PA-C Work Phone: [employer]. Start: 11-14-2020 End: 11-14-2020 Patient encounter procedure Marielena Calhoun PA-C Work Phone: [employer]. Start: 10-24-2020 End: 10-24-2020 Patient encounter procedure Marielena Calhoun PA-C Work Phone: [employer]. Start: 07-08-2020 End: 07-11-2020 Orders Marielena Calhoun PA-C Work Phone: [employer]. Start: 07-08-2020 End: 07-08-2020 Medication Marielena Calhoun PA-C Work Phone: [employer]. Start: 06-24-2020 End: 06-24-2020 Office outpatient visit 15 minutes Marielena Calhoun PA-C Work Phone: [employer]. Start: 01-04-2020 End: 01-04-2020 Medication Marielena Calhoun PA-C Work Phone: [employer]. Start: 12-14-2019 End: 12-14-2019 Orders Marielena Calhoun PA-C Work Phone: [employer]. Start: 12-09-2019 End: 12-11-2019 Initial preventive medicine new patient 40-64yrs Marielena Calhoun PA-C Work Phone: [employer]. Start: 12-09-2019 End: 12-11-2019 Patient encounter procedure Marielena Calhoun PA-C Work Phone: [employer] Start: 10-29-2017 End: 10-29-2017 Ambulatory TANNER CASTRO Facility: Patient encounter procedure Susan Gonzalez [facility]. Patient encounter procedure Lori Bety [facility].; [facility] Patient encounter procedure Susan Gonzalez [facility].; [facility]. Patient encounter procedure Ashok Montague MEDICAL OFFICE PROFESSIONAL [facility]. Patient encounter procedure Ese Lux [facility].; [facility]. Procedures Date Procedure Procedure Detail Performing Clinician Start: 03-26-2025 End: 03-26-2025 Most Recent Cardio Report Marielena Calhoun PA-C Work Phone: Start: 03-19-2025 UA DIP,URINE HCG (POC) Kaylah Del Toro APRN.PATTERN ASSEMBLER Work Phone: Start: 03-15-2025 Urinalysis SHERRIE Hauser Comment on above: Result Comment: URIN ALYSIS Performed By: #### 2 [id number] #### [facility],[address] [place] [address] Start: 02-09-2025 End: 02-09-2025 Most Recent Cardio Report Marielena Calhoun PA-C Work Phone: Start: 12-11-2024 End: 12-21-2024 Screening digital breast tomosynthesis bi Marielena Calhoun PA-C Work Phone: Start: 12-11-2024 End: 12-21-2024 Us pelvic nonobstetric real-time image complete Marielena BORREGO-C Work Phone: Start: 12-12-2023 End: 12-23-2023 Ct angiography chest w/contrast/noncontrast Marielena BORREGO-C Work Phone: Start: 12-24-2022 End: 12-25-2022 Echo tthrc r-t 2d w/wo m-mode complete rest&st Marielena BORREGO-C Work Phone: Start: 12-14-2022 End: 12-19-2022 Ecg routine ecg w/least 12 lds i&r only Marielena Calhoun PA-C Work Phone: Comment on above: Normal sinus rhythm without ischemic changes; GIOVANI also reviewed. Start: 01-24-2022 End: 01-24-2022 Depression screening Marielena Calhoun PA -C Work Phone: Start: 01-24-2022 End: 01-24-2022 Pos clin depres scrn f/u doc Marielena Calhoun PA-C Work Phone: Start: 01-24-2022 End: 02-28-2022 Screening digital breast tomosynthesis bi Marielena Calhoun PA-C Work Phone: Start: 06-26-2021 End: 06-28-2021 Radex ankle complete minimum 3 views Marielena Calhoun PA-C Work Phone: Start: 07-08-2020 End: 07-19-2020 Diagnostic mammography computer-aided detcj uni Marielena Calhoun PA-C Work Phone: Start: 12-23-2019 End: 12-23-2019 Lab findings surveillance Susan finch MEDICAL OFFICE PROFESSIONAL INSTRUCTOR Comment on above: CMP 88 Start: 12-23-2019 End: 12-23-2019 Lipid panel Susan Mckeon LP N Comment on above: TC 236, HDL 47, LDL 164, Trig 127 Start: 12-23-2019 End: 12-23-2019 Thyrotropin [Units/volume] in Serum or Plasma Susan Mckeon LPN Comment on above: 1.46 Start: 12-09-2019 End: 12-24-2019 TTE w or wo fol wcon,Doppler Marielena Calhoun PA-C Work Phone: Start: 12-09-2019 End: 12-24-2019 Myocardial spect multiple studies Marielena Lunaer PA-C Work Phone: Start: 12-09-2019 End: 12-24-2019 Us soft tissue head & neck real time imge docm Marielena Lunaer PA-C Work Phone: Start: 12-09-2019 End: 01-01-2020 Brncdilat rspse spmtry pre&post-brncdilat admn Marielena Calhoun PA-C Work Phone: Start: 12-09-2019 End: 12-09-2019 Microscopic examination of cervical Papanicolaou smear Susan Mckeon LPN Comment on above: Normal. Start: 12-09-2019 End: 12-23-2019 Screening mammography bi 2-view breast inc cad Marielena Calhoun PA-C Work Phone: Start: 11-11-1986 End: 11-11-1986 Tonsillectomy Marielena Wray Work Phone: Comment on above: taylor Plan of Treatment Date Care Activity Detail Author Start: 2051 RSV Immunization for Adults (1 - 1-dose 75+ series) RSV Immunization for Adults (1 - 1-dose 75+ series) [facility] Start: 2026 Zoster Vaccines (1 of 2) Zoste r Vaccines (1 of 2) [facility] Start: 07-12-2025 Influenza vaccination Influenz a Vaccine (Season Ended) [facility] Start: 06-04-2025 Patient encounter procedure [facility] Start: 06-02-2025 End: 06-02-2025 Patient encounter procedure 06/02/2025 10:50 AM EDT Office Visit OB/Gynecology [address] [place], [place] [id number] Tequila March MD [address] [place] [id number] 2 week post-op OB/Gynecology Comment on above: 2 week post-op Start: 03-25-2025 End: 06-24-2025 Thyrotropin [Units/volume] in Serum or Plasma [facility] Work Phone: Comment on above: Expected: 03/25/2025 , Expires: 06/24/2025 Start: 03-19-2025 End: 03-19-2025 Patient encounter procedure 03/19/2025 9:30 AM EDT Office Visit OB/Gynecology [address] [place] [address] Kaylah Del Toro APRN.PATTERN ASSEMBLER [address] [place] [address] [facility] OB/Gynecology Comment on above: EMB Start: 03-18-2025 End: 03-18-2025 Patient encounter procedure 03/18/2025 9:30 AM EDT Appointment [facility] [place] [place] [id number] Chest pain, unspecified [R07.9] [facility] Comment on above: Chest pain, unspecif ied [R07.9] Start: 03-05-2025 End: 03-05-2025 ambulatory 03/05/2025 10:30 AM EDT Procedure OB/Gynecology [address] [place] [address] Remote, 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 Seam Machine Operator [employer] [address] [place] [address] Abnormal uterine bleeding and Fibroids OB/Gynecology Comment on above: Abnormal uterine ble eding and Fibroids Start: 03-01-2025 End: 03-01-2026 US Pelvis PELVIC US [facility] Anc Imaging Routine Abnormal uterine bleeding (AUB) Uterine leiomyoma, unspecified location Expected: 03/01/2025, Expires: 03/01/2026 [facility] Work Phone: Comment on above: Expected: 03/01/2025 , Expires: 03/01/2026 Start: 03-01-2025 End: 03-01-2025 Patient encounter procedure 03/01/2025 7:30 AM EDT Office Visit OB/Gynecology [address] [place] [address] Kaylah Del Toro APRN.PATTERN ASSEMBLER [address] [place] [address] abnormal bleeding referral in scan docs OB/Gynecology Comment on above: abnormal bleeding re ferral in scan docs Start: 02-09-2025 End: 02-09-2026 CTA Heart and Coronary arteries WO and W contrast IV CTA HEART CORONARY ANGIOGRAM WITH PROV FFR-CT Imaging Routine Chest pain, unspecified Aneurysm of the ascending aorta, without rupture (HCC) Shortness of breath Obesity, unspecified Expected: 02/09/2025, Expires: 02/09/2026 [email or web address] Work Phone: Comment on above: Expected: 02/09/2025 , Expires: 02/09/2026 Start: 01-15-2025 Assay of ferritin FERRITIN (82 728) Start: 15-Jan-2025 Request [employer]; [employer]. Start: 01-15-2025 Blood count complete auto&auto difrntl wbc CBC, PLATELETS & AUT DIFF (F) (42572) Start: 15-Jan-2025 Request [employer]; [employer]. Start: 01-15-2025 Nursing evaluation o f patient and report Medical; Nurse visit - labs, mjp [facility] Start: 15-Jan-2025 10:20-05:00 NURSE, FLOAT Appointment Request [employer]. Start: 12-11-2024 Screening digital br east tomosynthesis bi Mammogram 3D (tomosynthesis), bilateral (97910) Start: 11-Dec-2024 Intent [employer]; [employer]. Start: 12-11-2024 Us pelvic nonobstetr ic real-time image complete Pelvic Ultrasound (24856) Start: 11-Dec-2024 Intent [employer]; [employer]. Start: 12-11-2024 Assay of thyroid stimulating hormone tsh TSH W/ REFL FREE T4 (80041,13640) (05382) Start: 11-Dec-2024 08:36-05:00 Request [employer]. Start: 12-11-2024 Lipid panel LIPID PANEL (8 0061) Start: 11-Dec-2024 08:33-05:00 Request [facility]; [employer] Start: 12-11-2024 Assay of ferritin FERRITIN (82 728) Start: 11-Dec-2024 08:33-05:00 Request [employer].; [employer], [employer]. Start: 12-11-2024 Comprehensive metabo lic panel CMP w/ GFR* (92391) Start: 11-Dec-2024 08:33-05:00 Request [employer].; [employer], [employer]. Start: 12-11-2024 Blood count complete auto&auto difrntl wbc CBC, PLATELETS & AUT DIFF (F) (38638) Start: 11-Dec-2024 08:33-05:00 Request [employer].; [employer], [employer]. Start: 07-12-2024 Covid-19 Vaccine ( season) Covid-19 Vaccine ( season) [facility] Start: 07-12-2024 Influenza vaccination Influenza Vacc ine (#1) [facility] Start: 12-12-2023 End: 12-20-2023 Ct angiography chest w/contrast/noncontrast CT ANGIOGRAM CHEST W CONTRAST (69688) Date: 12-Dec-2023 [employer], [employer]. Start: 12-06-2023 Nursing evaluation o f patient and report Medical; Nurse visit - fasting labs--P [employer]. Start: 06-Dec-2023 8:20 NURSE, FLOAT Appointment Request [employer]. Start: 11-29-2023 Lipid panel LIPID PANEL (8 0061) Start: 29-Nov-2023 14:08 Request [employer].; [employer], [employer]. Start: 11-29-2023 Comprehensive metabo lic panel CMP w/ GFR* (69904) Start: 29-Nov-2023 14:08 Request [employer].; [employer] Start: 11-29-2023 Assay of ferritin FERRITIN (82 728) Start: 29-Nov-2023 14:06 Request [employer].; [employer], [employer]. Start: 11-29-2023 Assay of iron IRON TOTAL (83 540) Start: 29-Nov-2023 14:06 Request [employer].; [employer]. Start: 11-29-2023 Blood count complete auto&auto difrntl wbc CBC, PLATELETS & AUT DIFF (F) (31155) Start: 29-Nov-2023 14:06 Request [employer].; [employer] Start: 01-09-2023 Assay of ferritin FERRITIN (82 728) Start: 09-Jan-2023 12:02 Request [employer].; [employer]. Start: 01-09-2023 Assay of iron IRON TOTAL (83 540) Start: 09-Jan-2023 12:02 Request [employer].; [employer], [employer]. Start: 01-09-2023 Blood count complete auto&auto difrntl wbc CBC, PLATELETS & AUT DIFF (F) (24302) Start: 09-Jan-2023 12:02 Request [employer].; [employer]. Start: 12-14-2022 End: 12-17-2022 Myocardial spect multiple studies Exercise Cardiolite Stress Test Date: 14-Dec-2022 [employer]. Start: 12-14-2022 End: 12-17-2022 TTE w or wo fol wcon,Doppler Echocardiogram, Complete with contrast per protocol if indicated ADULT (C8929) Date: 14-Dec-2022 [employer]. Start: 2021 Diabetes Screening Diabetes Screenin g [facility] Start: 2021 Lipid panel Lipid Screening [facility] Start: 2021 Screening for malign ant neoplasm of colon [facility] Start: 2016 Screening for malign ant neoplasm of breast [facility] Start: 2006 Screening for malign ant neoplasm of cervix [facility] Start: 1997 Screening for malign ant neoplasm of cervix [facility] Start: 1995 DTaP/Tdap/Td Vaccine s (1 - Tdap) DTaP/Tdap/Td Vaccines (1 - Tdap) [facility] Start: 1995 Hepatitis B Vaccine (1 of 3 - 19+ 3-dose series) Hepatitis B Vaccine (1 of 3 - 19+ 3-dose series) [facility] Start: 1995 Hepatitis B Vaccines (1 of 3 - 19+ 3-dose series) Hepatitis B Vaccines (1 of 3 - 19+ 3-dose series) [facility] Start: 1995 Urine microalbumin profile DTaP,Tdap,Td Vaccine (1 - Tdap) [facility] Start: 1994 Anxiety Screening Anxiety Screening [facility] Start: 1994 Depression Screening Depression Scre ening [facility] Start: 1994 Diabetes mellitus screening Diabetes Screening [facility] Start: 1994 Hepatitis C screening Hepatitis C Sc reening [facility] Start: 1994 HIV screening HIV Screening [facility] Start: 1988 Depression Screening Depression Scre ing [facility] Start: 1977 MMR Vaccines (1 of 1 - Standard series) MMR Vaccines (1 of 1 - Standard series) [facility] Start: 1976 HIV screening HIV Screening [facility] Start: 1976 Lipid panel Lipid Panel [facility] Start: 1976 Screening for malign ant neoplasm of colon [facility] Endometrial bx w/wo endocervix bx w/o dilat spx ENDOMETRIAL BIOPSY Procedures Routine Thickened endometrium Excessive bleeding in premenopausal period Ordered: 03/09/2025 [facility] Work Phone: Comment on above: Ordered: 03/09/2025 Endometrial bx w/wo endocervix bx w/o dilat spx ENDOMETRIAL BIOPSY Procedures Routine Abnormal uterine bleeding Ordered: 03/19/2025 [facility] Work Phone: Comment on above: Ordered: 03/19/2025 Tissue Pathology bio psy report SURGICAL PATHOLOGY Lab Routine Abnormal uterine bleeding 03/19/2025 10:20 AM EDT [facility] Immunizations Immunization Date Immunization Notes Care Provider Otis galindo 12-09-2019 tetanus toxoid, redu alhaji diphtheria toxoid, and acellular pertussis vaccine, adsorbed Marielena Calhoun PA-C Work Phone: [facility], [facility]. Comment on above: Site: Left ArmVIS Gi claudia: * Tdap (Tetanus, Diphtheria, Pertussis) (01/04/15) Payers Date Payer Category Payer Self-pay 2024 Private Health Insurance [employer] [id number] 2024 Unknown [id number] 2011 Unknown [id number] 1976 Unknown [id number] 1976 Unknown [id number] 1976 Unknown [id number] [id number] 1976 Unknown [id number] 1976 Unknown [id number] [id number] 1976 Unknown [id number] Unknown [employer] Unknown [id number] Social History Date Type Detail Facility Alcohol Use: Alcohol Use: ; Occasional alcohol use. [facility] Start: 03-01-2025 End: 03-25-2025 Caffeine Use Caffeine Use [facility], [facility].; [facility] Tobacco Use: Tobacco Use: ; N ever smoker. [facility].; [facility]. Start: 1976 Female [facility] Occasional alcohol use [facility].; [facility], [facility] Work Phone: Start: 03-01-2025 Never smoked tobacco [facility].; [facility] Work Phone: [facility] consumption unknown [facility] Start: 1975 Sex assigned at Not on file [facility] Start: 03-01-2025 End: 03-25-2025 Gender identity Not on file [facility] Start: 03-01-2025 Tobacco use and exposure Smokeless tobacco non-user [facility] Start: 03-01-2025 End: 03-25-2025 Alcoholic beverage intake Ex-drinker (finding) [facility] National Score (1-100), lower number is lower risk 69 [facility] Start: 03-26-2025 Gender identity Identifies as female gender (finding) [facility] Start: 01-28-2025 Sex Female (finding) [facility] Clinical Notes 02-19-2025 to 04-28-2025 Tequila March MD - 04/28/2025 10:10 AM Tequila Shileds MD - 04/28/2025 10:10 AM Tequila Shields MD - 03/25/2025 11:30 AM EDTPatient Instructions Note Date & Type Note Facility 04-28-2025 History and physical note Pre-Op History and Physical HPI: The patient is a 49 year old female presenting for pre-operative visit. She is scheduled for TLH, Bilateral salpingectomy, cyst, for Fibroid uterus, AUB on 05/21/25. Procedure discussed along with risks, benefits and complications. Other alternatives discussed for management. Consent form signed? Yes. 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 sertraline (ZOLOFT) 50 mg tablet Take 50 mg by mouth once daily. Epinastine HCl 0.05 % drop Use 1 drop in both eyes two times a day. tranexamic acid (LYSTEDA) 650 mg tablet Take 2 tablets 3 times a day as needed for heavy bleeding up to 5 days. 30 tablet 1 No current facility-administered medications for this visit. ALLERGIES: Albuterol and Acetaminophen PERSONAL HISTORY: Social History Tobacco Use Smoking status: Never Smokeless tobacco: Never Vaping Use Vaping status: Never Used Substance Use Topics Alcohol use: Not Currently Drug use: Never FAMILY HISTORY: FAMILY HISTORY Problem Relation Age of Onset other (afib) Mother Diabetes Mother Hypertension Mother Hyperlipidemia Mother Stroke Father 73 Diabetes Father Hypertension Father Hyperlipidemia Father Kidney failure Sister stage 3 Diabetes Sister Hypertension Sister Hyperlipidemia Sister REVIEW OF SYMPTOMS: negative except as noted above PHYSICAL EXAMINATION: VITALS: Last menstrual period 03/11/2025. GENERAL: The patient is well nourished, well hydrated in no acute distress. , The patient is oriented to time, place, and person. NECK: full range of motion LUNGS: Clear to auscultation bilaterally. no wheezes, rhonchi or rales HEART: Regular rate and rhythm, Normal heart sounds, and No murmurs or gallops IMPRESSION: 49yo with AUB, fibroid uterus PLAN: total laparoscopic Hysterectomy, Bilateral salpingectomy, Cysto Pt has been counseled on risks/benefits and alternatives of surgery including but not limited to anesthesia, bleeding, infection, injury to pelvic structures including bowel, bladder, ureters and vessels. Pt wishes to proceed with surgery at this time. Pre and post op instructions reviewed I have reviewed and updated past medical and surgical history, medications and allergies Tequila Hoffmann MD [facility] 04-28-2025 History and physical note Pre-Op History and Physical HPI: The patient is a 49 year old female presenting for pre-operative visit. She is scheduled for TLH, Bilateral salpingectomy, cyst, for Fibroid uterus, AUB on 05/21/25. Procedure discussed along with risks, benefits and complications. Other alternatives discussed for management. Consent form signed? Yes. 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 sertraline (ZOLOFT) 50 mg tablet Take 50 mg by mouth once daily. Epinastine HCl 0.05 % drop Use 1 drop in both eyes two times a day. tranexamic acid (LYSTEDA) 650 mg tablet Take 2 tablets 3 times a day as needed for heavy bleeding up to 5 days. 30 tablet 1 No current facility-administered medications for this visit. ALLERGIES: Albuterol and Acetaminophen PERSONAL HISTORY: Social History Tobacco Use Smoking status: Never Smokeless tobacco: Never Vaping Use Vaping status: Never Used Substance Use Topics Alcohol use: Not Currently Drug use: Never FAMILY HISTORY: FAMILY HISTORY Problem Relation Age of Onset other (afib) Mother Diabetes Mother Hypertension Mother Hyperlipidemia Mother Stroke Father 73 Diabetes Father Hypertension Father Hyperlipidemia Father Kidney failure Sister stage 3 Diabetes Sister Hypertension Sister Hyperlipidemia Sister REVIEW OF SYMPTOMS: negative except as noted above PHYSICAL EXAMINATION: VITALS: Last menstrual period 03/11/2025. GENERAL: The patient is well nourished, well hydrated in no acute distress. , The patient is oriented to time, place, and person. NECK: full range of motion LUNGS: Clear to auscultation bilaterally. no wheezes, rhonchi or rales HEART: Regular rate and rhythm, Normal heart sounds, and No murmurs or gallops IMPRESSION: 49yo with AUB, fibroid uterus PLAN: total laparoscopic Hysterectomy, Bilateral salpingectomy, Cysto Pt has been counseled on risks/benefits and alternatives of surgery including but not limited to anesthesia, bleeding, infection, injury to pelvic structures including bowel, bladder, ureters and vessels. Pt wishes to proceed with surgery at this time. Pre and post op instructions reviewed I have reviewed and updated past medical and surgical history, medications and allergies Tequila Hoffmann MD documented in this encounter [facility] 03-25-2025 Note HNO ID: [id number] Author: TEQUILA MARCH MD Service: ? Author Type: Physician Type: Progress Notes Filed: 03/25/2025 11:37 Note Text: Subjective The patient is a 49-year-old female with a history of heavy menstrual bleeding and fibroids presenting for evaluation and management. Menstrual Irregularities - Reports a history of extremely heavy periods since age 10. - Currently experiencing heavy bleeding, which has calmed down to spotting over the last few days after starting Aygestin three days ago. - Reports crampy pain, especially on the right side, exacerbated by physical activity and lifting. - Has been on her feet for more than 6-7 hours a day, which increases her pain. - Has discussed the possibility of a hysterectomy versus fibroid removal with her clinician. - Expresses a preference for a hysterectomy, stating, I would rather just be done with it all, because it seems like when we get one thing straightened out, something else pops up. - Denies any abnormal Pap smears, though she mentions a benign finding after her second son. Perimenopausal Symptoms - Reports experiencing hot flashes and night sweats. Cardiac Issues - Has an enlarged artery, confirmed by an ultrasound. - Recently had a CT scan at [facility] and is scheduled to see her facility practice specialist, Dr. Crenshaw, tomorrow for further evaluation. - Has been under general anesthesia before and reports a history of difficulty waking up post-anesthesia. Genitourinary: (+) pelvic pain right side, (+) spotting Endocrine: (+) hot flashes, (+) night sweats Objective Blood pressure 136/92, height 167.6 cm (5' 6), weight 116.6 kg (257 lb), last menstrual period 03/11/2025. General: Height 5 feet 6 inches. : Uterine manipulation elicits pain on right side. Labs: (No diagnostics reported.) Tests: (2022) Pap smear: Normal result Imaging: CT at [facility] (performed last week): No official results discussed Ultrasound (performed a while back): Patient reports enlarged artery Pelvic Ultrasound: 4 cm submucosal fibroid identified 1. Abnormal uterine bleeding (N93.9) 2. Thickened endometrium (R93.89) 3. Submucous leiomyoma of uterus (D25.0) 4. Menorrhagia with irregular cycle (N92.1) - Experiencing significant improvement in bleeding with Aygestin, but still reports crampy pain, especially on the right side. - Discussed surgical options including hysterectomy and myomectomy. Patient prefers hysterectomy to address longstanding issues. - Educated on risks of hysterectomy including infection, bleeding, and injury to pelvic structures. Explained that ovaries would remain intact unless severely diseased or bleeding issues arise. - Advised patient to continue Aygestin until surgery. - Ordered CBC and thyroid function tests to be completed today. - Awaiting cardiac clearance from Dr Crenshaw, facility practice specialist, before proceeding with surgery. - Tentatively planning for laparoscopic hysterectomy at [facility], pending cardiology clearance. - Scheduled pre-op appointment to discuss risks, benefits, and alternatives, and to sign consent form. - Patient understands and agrees with the plan. 5. Generalized abdominal pain (R10.84) - Pain likely related to uterine conditions; will be addressed with planned surgical intervention. - Monitor for any changes or worsening symptoms. Cardiac imaging reviewed EMB reviewed- scant fragments of secretory Endometrium OR booking sheet- TLS, salpingectomy with cysto- will await cardiac clearance Attestation Recording using [employer] software for draft documentation of the visit was discussed with the patient/authorized mill representative; all questions welcomed and answered. Patient/authorized mill representative agreed to proceed Medical Decision Making: Problems: Moderate: 2+ stable chronic illnesses Data: Unique test result(s) reviewed: 2 Unique test(s) ordered: 2 Medical Decision Making Level: 4 - Moderate Tequila Ruano MD [facility] 03-25-2025 History of Presen t illness Narrative Subjective The patient is a 49-year-old female with a history of heavy menstrual bleeding and fibroids presenting for evaluation and management. Menstrual Irregularities - Reports a history of extremely heavy periods since age 10. - Currently experiencing heavy bleeding, which has calmed down to spotting over the last few days after starting Aygestin three days ago. - Reports crampy pain, especially on the right side, exacerbated by physical activity and lifting. - Has been on her feet for more than 6-7 hours a day, which increases her pain. - Has discussed the possibility of a hysterectomy versus fibroid removal with her clinician. - Expresses a preference for a hysterectomy, stating, I would rather just be done with it all, because it seems like when we get one thing straightened out, something else pops up. - Denies any abnormal Pap smears, though she mentions a benign finding after her second son. Perimenopausal Symptoms - Reports experiencing hot flashes and night sweats. Cardiac Issues - Has an enlarged artery, confirmed by an ultrasound. - Recently had a CT scan at [facility] and is scheduled to see her facility practice specialist, Dr. Crenshaw, tomorrow for further evaluation. - Has been under general anesthesia before and reports a history of difficulty waking up post-anesthesia. Genitourinary: (+) pelvic pain right side, (+) spotting Endocrine: (+) hot flashes, (+) night sweats Objective Blood pressure 136/92, height 167.6 cm (5' 6), weight 116.6 kg (257 lb), last menstrual period 03/11/2025. General: Height 5 feet 6 inches. : Uterine manipulation elicits pain on right side. Labs: (No diagnostics reported.) Tests: (2022) Pap smear: Normal result Imaging: CT at [facility] (performed last week): No official results discussed Ultrasound (performed a while back): Patient reports enlarged artery Pelvic Ultrasound: 4 cm submucosal fibroid identified 1. Abnormal uterine bleeding (N93.9) 2. Thickened endometrium (R93.89) 3. Submucous leiomyoma of uterus (D25.0) 4. Menorrhagia with irregular cycle (N92.1) - Experiencing significant improvement in bleeding with Aygestin, but still reports crampy pain, especially on the right side. - Discussed surgical options including hysterectomy and myomectomy. Patient prefers hysterectomy to address longstanding issues. - Educated on risks of hysterectomy including infection, bleeding, and injury to pelvic structures. Explained that ovaries would remain intact unless severely diseased or bleeding issues arise. - Advised patient to continue Aygestin until surgery. - Ordered CBC and thyroid function tests to be completed today. - Awaiting cardiac clearance from Dr Crenshaw, facility practice specialist, before proceeding with surgery. - Tentatively planning for laparoscopic hysterectomy at [facility], pending cardiology clearance. - Scheduled pre-op appointment to discuss risks, benefits, and alternatives, and to sign consent form. - Patient understands and agrees with the plan. 5. Generalized abdominal pain (R10.84) - Pain likely related to uterine conditions; will be addressed with planned surgical intervention. - Monitor for any changes or worsening symptoms. Cardiac imaging reviewed EMB reviewed- scant fragments of secretory Endometrium OR booking sheet- TLS, salpingectomy with cysto- will await cardiac clearance Attestation Recording using [employer] software for draft documentation of the visit was discussed with the patient/authorized mill representative; all questions welcomed and answered. Patient/authorized mill representative agreed to proceed Medical Decision Making: Problems: Moderate: 2+ stable chronic illnesses Data: Unique test result(s) reviewed: 2 Unique test(s) ordered: 2 Medical Decision Making Level: 4 - Moderate Tequila Ruano MD documented in this encounter [facility] 03-19-2025 Instructions Francoise Linn LPN - 03/19/2025 9:14 AM EDT YOUR RECOVERY After your biopsy you may have: Vaginal bleeding (less than a normal menstrual period) Mild cramping Do NOT put anything in the vagina for 1 week after your endometrial biopsy. This includes: tampons douches and refraining from having sexual intercourse If you have any discomfort, you may take an over the counter pain medication (motrin, advil, ibuprofen, tylenol, etc). If this does not relieve your discomfort, contact the office. It is okay to wear a sanitary pad until the discharge and spotting stops. RISKS Although problems seldom occur with endometrial biopsies, there can be some complications. You may feel faint during and shortly after the procedure as well as have some bleeding after the procedure. There is also a risk of infection after the procedure. These complications are rare and can be easily treated. You should contact you doctor is you have any of the following: Heavy bleeding (more than your normal period) Bleeding with clots Severe abdominal pain Fever (more than 100.4F) Foul smelling vaginal discharge RESULTS We will have the results of your biopsy in 1-2 weeks. If you do not hear the results of your biopsy after 2 weeks, please contact the office for the results. If you have any additional questions or concerns please do not hesitate to contact the office. documented in this encounter [facility] 03-19-2025 Note HNO ID: [id number] Author: KAYLAH DEL TORO APRN.KENYATTA Service: ? Author Type: Nurse Practitioner Type: Progress Notes Filed: 03/19/2025 09:57 Note Text: Patient declined new grad rn. Jenni is a 49 year old who presents today for an endometrial biopsy for abnormal uterine bleeding. test: negative UNIVERSAL PROTOCOL / SAFETY CHECKLIST Procedure to be Performed: Endometrial Biopsy Sign In: A Moment of CARE was completed. Appropriate PPE (Personal Protective Equipment) worn by all providers involved with the procedure. Special equipment not required. Patient/Surrogate Stated/Verified: Patient name, Date of , Relevant allergies, and The intended procedure Time Out: Relevant labs, photos, and/or imaging studies have been reviewed. Intended patient and procedure match the source document(s) (e.g. consent, HANDP, associated studies [imaging, pathology]) match the intended patient and procedure. Consent obtained and matches the intended procedure. Yes. Correct side/site is not applicable. Medications required for this procedure are verified. Fire risk assessed and is not applicable. Implants: are not applicable. Sign Out: Specimens are all correctly labeled and sent. All instruments, equipment, possible retained foreign bodies are accounted for. Yes. The post-procedure plan of care has been communicated to the patient or surrogate. PROCEDURE: EXTERNAL GENITALIA: Normal in appearance without lesions VAGINA: Normal in appearance without lesions BIOPSY: Speculum placed into the vagina with excellent visualization of the cervix. Cervix cleaned with betadine. Anterior lip of cervix grasped with single toothed tenaculum. Uterus sounded to 10 cm. Pipelle inserted into the uterus without difficulty and endometrial biopsy obtained. Specimen labeled and sent to pathology. Hemostasis achieved. Procedure Summary: Patient tolerated procedure well. ASSESSMENT: abnormal uterine bleeding PLAN: Will notify patient of results in 1-2 weeks. Kaylah Del Toro APRN.KENYATTA [facility] 03-19-2025 History of Presen t illness Narrative Patient declined new grad rn. Jenni is a 49 year old who presents today for an endometrial biopsy for abnormal uterine bleeding. test: negative UNIVERSAL PROTOCOL / SAFETY CHECKLIST Procedure to be Performed: Endometrial Biopsy Sign In: A Moment of CARE was completed. Appropriate PPE (Personal Protective Equipment) worn by all providers involved with the procedure. Special equipment not required. Patient/Surrogate Stated/Verified: Patient name, Date of , Relevant allergies, and The intended procedure Time Out: Relevant labs, photos, and/or imaging studies have been reviewed. Intended patient and procedure match the source document(s) (e.g. consent, H&P, associated studies [imaging, pathology]) match the intended patient and procedure. Consent obtained and matches the intended procedure. Yes. Correct side/site is not applicable. Medications required for this procedure are verified. Fire risk assessed and is not applicable. Implants: are not applicable. Sign Out: Specimens are all correctly labeled and sent. All instruments, equipment, possible retained foreign bodies are accounted for. Yes. The post-procedure plan of care has been communicated to the patient or surrogate. PROCEDURE: EXTERNAL GENITALIA: Normal in appearance without lesions VAGINA: Normal in appearance without lesions BIOPSY: Speculum placed into the vagina with excellent visualization of the cervix. Cervix cleaned with betadine. Anterior lip of cervix grasped with single toothed tenaculum. Uterus sounded to 10 cm. Pipelle inserted into the uterus without difficulty and endometrial biopsy obtained. Specimen labeled and sent to pathology. Hemostasis achieved. Procedure Summary: Patient tolerated procedure well. ASSESSMENT: abnormal uterine bleeding PLAN: Will notify patient of results in 1-2 weeks. Kaylah Del Toro APRN.CNP documented in this encounter [facility] 03-18-2025 History of Presen t illness Narrative Radiology Service Progress Note PATIENT NAME: Jenni Merino DATE OF SERVICE: March 18, 2025 TIME: 9:23 AM PATIENT IDENTITY VERIFICATION COMPLETED USING TWO (2) IDENTIFIERS: Name and Date of confirmed by patient verbally and Name and Date of confirmed by identification band. FALL SCREENING: Has the patient had 2 falls in the last year or 1 fall with injury or currently using an Ambulatory Assistive Device (Walker, Cane, Wheelchair, Crutches, etc.)? No PATIENT GENDER DATA: Assigned female at . status: : No status: NO. PATIENT RELEVANT IMPLANT DATA REVIEWED: Not Applicable PATIENT PRESENTS WITH AN IMPLANTABLE OR ATTACHED EDUCATION PROGRAM MANAGER: No RADIOLOGY DEPARTMENT: CT; Exam(s) Completed: Cardiac PERIPHERAL IV DATA: Site assessment: Clean,Dry and Intact, Site disposition Left in for next appointment SIGNED BY: RT Veronica(Nicole) March 18, 2025 9:23 AM documented in this encounter [facility] 03-18-2025 Note HNO ID: [id number] Author: SAKSHI LANCE RT (R) Service: Radiology Author Type: Technologist Type: Progress Notes Filed: 03/18/2025 09:24 Note Text: Radiology Service Progress Note PATIENT NAME: Jenni Merino DATE OF SERVICE: March 18, 2025 TIME: 9:23 AM PATIENT IDENTITY VERIFICATION COMPLETED USING TWO (2) IDENTIFIERS: Name and Date of confirmed by patient verbally and Name and Date of confirmed by identification band. FALL SCREENING: Has the patient had 2 falls in the last year or 1 fall with injury or currently using an Ambulatory Assistive Device (Walker, Cane, Wheelchair, Crutches, etc.)? No PATIENT GENDER DATA: Assigned female at . status: : No status: NO. PATIENT RELEVANT IMPLANT DATA REVIEWED: Not Applicable PATIENT PRESENTS WITH AN IMPLANTABLE OR ATTACHED EDUCATION PROGRAM MANAGER: No RADIOLOGY DEPARTMENT: CT; Exam(s) Completed: Cardiac PERIPHERAL IV DATA: Site assessment: Clean,Dry and Intact, Site disposition Left in for next appointment SIGNED BY: RT Veronica(Nicole) March 18, 2025 9:23 AM [facility] 03-18-2025 Note HNO ID: [id number] Author: MONICA ALCALA RN Service: ? Author Type: Registered Nurse Type: Procedures Filed: 03/18/2025 09:23 Note Text: Radiology Service Progress Note PATIENT NAME: Jenni Merino DATE OF SERVICE: March 18, 2025 TIME: 9:04 AM PATIENT IDENTITY VERIFICATION COMPLETED USING TWO (2) STANDARD IDENTIFIERS: Name and Date of confirmed by patient verbally and Name and Date of confirmed by identification band. FALL RISK: Has the patient had 2 falls in the last year? PATIENT GENDER DATA: Assigned female at . status: : No status: NO. PATIENT RELEVANT IMPLANT DATA REVIEWED: Yes ALLERGIES: Reviewed and unchanged MEDICATIONS REVIEWED: YES PROCEDURE: cardiac CTA. 2.5 mg IV metoprolol given at 0900 for HR sustaining over 75. HR after dose 67-68, 0.4mg SL nitro given at 0920 IV SITE: Ambulatory: A peripheral IV was started in the Left with a Angio cath: 20 gauge. PERIPHERAL IV ACCESS: Discontinued PATIENT TOLERATED PROCEDURE: Without incident. PATIENT DISCHARGED TO: Home/Self Care SIGNED BY: Monica Alcala RN [facility] 03-18-2025 Procedure note Radiology Service Progress Note PATIENT NAME: Jenni Merino DATE OF SERVICE: March 18, 2025 TIME: 9:04 AM PATIENT IDENTITY VERIFICATION COMPLETED USING TWO (2) STANDARD IDENTIFIERS: Name and Date of confirmed by patient verbally and Name and Date of confirmed by identification band. FALL RISK: Has the patient had 2 falls in the last year? PATIENT GENDER DATA: Assigned female at . status: : No status: NO. PATIENT RELEVANT IMPLANT DATA REVIEWED: Yes ALLERGIES: Reviewed and unchanged MEDICATIONS REVIEWED: YES PROCEDURE: cardiac CTA. 2.5 mg IV metoprolol given at 0900 for HR sustaining over 75. HR after dose 67-68, 0.4mg SL nitro given at 0920 IV SITE: Ambulatory: A peripheral IV was started in the Left with a Angio cath: 20 gauge. PERIPHERAL IV ACCESS: Discontinued PATIENT TOLERATED PROCEDURE: Without incident. PATIENT DISCHARGED TO: Home/Self Care SIGNED BY: Monica Alcala RN [facility] 03-18-2025 Procedure note Radiology Service Progress Note PATIENT NAME: Jenni Merino DATE OF SERVICE: March 18, 2025 TIME: 9:04 AM PATIENT IDENTITY VERIFICATION COMPLETED USING TWO (2) STANDARD IDENTIFIERS: Name and Date of confirmed by patient verbally and Name and Date of confirmed by identification band. FALL RISK: Has the patient had 2 falls in the last year? PATIENT GENDER DATA: Assigned female at . status: : No status: NO. PATIENT RELEVANT IMPLANT DATA REVIEWED: Yes ALLERGIES: Reviewed and unchanged MEDICATIONS REVIEWED: YES PROCEDURE: cardiac CTA. 2.5 mg IV metoprolol given at 0900 for HR sustaining over 75. HR after dose 67-68, 0.4mg SL nitro given at 0920 IV SITE: Ambulatory: A peripheral IV was started in the Left with a Angio cath: 20 gauge. PERIPHERAL IV ACCESS: Discontinued PATIENT TOLERATED PROCEDURE: Without incident. PATIENT DISCHARGED TO: Home/Self Care SIGNED BY: Monica Alcala RN documented in this encounter [facility] 03-16-2025 Telephone encounter Note Rx sent. Kaylah Del Toro APRN.CNP [facility] 03-16-2025 Miscellaneous Notes Rx sent. Kaylah Del Toro APRN.PATTERN ASSEMBLER Patient would like RX for Aygestin sent to [facility]. Pharmacy updated. Lori Lacy, RN Left message for patient to call office. Khushbu Cowan RN Does she want me to send the Aygestin to another pharmacy? Kaylah Del Toro APRN.CNP Patient states that she was seen at [facility] and had a pelvic ultrasound done and was also referred to a facility practice specialist and needs to have a chest CT done. Patient states that her bleeding has slowed down today and is only taking tranexamic acid. Stated that her hemoglobin was 12 at hospital. [facility] in [place] was not able to fill her Rx for Aygestin and does not know when medication will be in stock. Emb is scheduled on 03/19/25 Please let the patient know that her ultrasound does show a fibroid approximately 5 cm and another small 1 approximately 1 cm, the lining of the uterus is thickened. I would like to perform an endometrial biopsy for further evaluation of her bleeding and the thickened lining. Orders filed. Kaylah Del Toro APRN.CNP documented in this encounter [facility] 03-16-2025 Telephone encounter Note Patient would like RX for Aygestin sent to [facility]. Pharmacy updated. Lori Lacy RN [facility] 03-16-2025 Telephone encounter Note Left message for patient to call office. Khushbu Cowan, CATRACHO [facility] 03-16-2025 Telephone encounter Note Does she want me to send the Aygestin to another pharmacy? Kaylah Del Toro APRN.CNP [facility] 03-16-2025 Telephone encounter Note Patient states that she was seen at [facility] and had a pelvic ultrasound done and was also referred to a facility practice specialist and needs to have a chest CT done. Patient states that her bleeding has slowed down today and is only taking tranexamic acid. Stated that her hemoglobin was 12 at hospital. [facility] in [place] was not able to fill her Rx for Aygestin and does not know when medication will be in stock. Emb is scheduled on 03/19/25 [facility] 03-15-2025 Telephone encounter Note Patient notified. She plans to go to ER. Aware of the Aygestin taper. Patient has her EMB scheduled for Saturday. Lori Lacy RN [facility] 03-15-2025 Miscellaneous Notes Patient notified. She plans to go to ER. Aware of the Aygestin taper. Patient has her EMB scheduled for Saturday. Lori Lacy RN If she is having the dizziness and a nauseous I do recommend that she go to the emergency room so that they can do blood work to check her for severe anemia. Otherwise start the Aygestin taper and see if it slows her bleeding down and let us know if it does not help. 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 When laying down, filling heavy period pad every 2 hours. When up moving then changing heavy period pad every 1 hour with clots. Advised Pt that we typically advise Pt's with heavy bleeding (saturating a pad (front to back, side to side) in one hour or less for two hours or more), with associated symptoms of dizziness and nausea that she should go to ER. Advised Pt, aware that she does not want to go to ER due to her last experience, but will send message to to see if she wants Pt to start on the Aygestin taper first to see if it is helpful & stop the Lysteda or go to ER. Please advise. Jian Salomon RN I sent an Aygestin taper in for her to help stop the bleeding. She can stop the Lysteada if it is not helping. Kaylah Del Toro APRN.CNP Patient started bleeding heavy again on Monday 03/12. She has been changing pad every 2 hours over the weekend and still is today. Denies chest pain. Having some dizziness and shortness of breath, but states SOB is normal for her with asthma - not worse than usual. She started taking the Lysteda 2 tablets TID since Saturday night with no improvement in flow. She did not go to ER because last time she did she said they gave her tylenol and told her to follow up in office. Please advise. Khushbu Cowan RN documented in this encounter [facility] 03-15-2025 Telephone encounter Note If she is having the dizziness and a nauseous I do recommend that she go to the emergency room so that they can do blood work to check her for severe anemia. Otherwise start the Aygestin taper and see if it slows her bleeding down and let us know if it does not help. 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 When laying down, filling heavy period pad every 2 hours. When up moving then changing heavy period pad every 1 hour with clots. Advised Pt that we typically advise Pt's with heavy bleeding (saturating a pad (front to back, side to side) in one hour or less for two hours or more), with associated symptoms of dizziness and nausea that she should go to ER. Advised Pt, aware that she does not want to go to ER due to her last experience, but will send message to to see if she wants Pt to start on the Aygestin taper first to see if it is helpful & stop the Lysteda or go to ER. Please advise. Jian Salomon RN [facility] 03-15-2025 Telephone encounter Note I sent an Aygestin taper in for her to help stop the bleeding. She can stop the Lysteada if it is not helping. Kaylah Del Toro APRN.KENYATTA [facility] 03-15-2025 Telephone encounter Note Patient started bleeding heavy again on Monday 03/12. She has been changing pad every 2 hours over the weekend and still is today. Denies chest pain. Having some dizziness and shortness of breath, but states SOB is normal for her with asthma - not worse than usual. She started taking the Lysteda 2 tablets TID since Saturday night with no improvement in flow. She did not go to ER because last time she did she said they gave her tylenol and told her to follow up in office. Please advise. Khushbu Cowan RN [facility] 03-09-2025 Telephone encounter Note Patient notified and EMB scheduled. Khushbu Cowan RN [facility] 03-09-2025 Miscellaneous Notes Patient notified and EMB scheduled. Khushbu Cowan RN Left message for patient to call office. Jian Salomon RN Kaylah Del Toro APRN.CNP 03/09/25 9:47 AM Note Please let the patient know that her ultrasound does show a fibroid approximately 5 cm and another small 1 approximately 1 cm, the lining of the uterus is thickened. I would like to perform an endometrial biopsy for further evaluation of her bleeding and the thickened lining. Orders filed. Kaylah Del Toro APRN.CNP documented in this encounter [facility] 03-09-2025 Telephone encounter Note Left message for patient to call office. Jian Salomon RN [facility] 03-09-2025 Telephone encounter Note Kaylah Del Toro APRN.CNP 03/09/25 9:47 AM Note Please let the patient know that her ultrasound does show a fibroid approximately 5 cm and another small 1 approximately 1 cm, the lining of the uterus is thickened. I would like to perform an endometrial biopsy for further evaluation of her bleeding and the thickened lining. Orders filed. Kaylah Del Toro APRN.CNP [facility] 03-09-2025 Telephone encounter Note Please let the patient know that her ultrasound does show a fibroid approximately 5 cm and another small 1 approximately 1 cm, the lining of the uterus is thickened. I would like to perform an endometrial biopsy for further evaluation of her bleeding and the thickened lining. Orders filed. Kaylah Del Toro APRN.KENYATTA [facility] 03-05-2025 Note HNO ID: [id number] Author: MINAL LANDRUM MD Service: ? 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 Encounter Diagnosis ICD-10-CM 1. Abnormal uterine bleeding (AUB) N93.9 2. Uterine leiomyoma, unspecified location D25.9 Please see report under imaging tab. Minal Landrum MD March 05, 2025 6:10 PM [facility] 03-01-2025 Note HNO ID: [id number] Author: KAYLAH DEL TORO APRN.PATTERN ASSEMBLER Service: ? Author Type: Nurse Practitioner Type: Progress Notes Filed: 03/01/2025 08:07 Note Text: Jenni Merino is a 49 year old female who presents for problem visit AUB for 5 month(s). HPI: Patient states that in November of this year she started with heavy irregular bleeding after not having a menses since January 2024. She has been randomly bleeding on and off with no pattern since November. She was given Megace previously which caused her to feel pressure in her chest. She is having some random pelvic pain. If she lifts anything heavy it does increase her bleeding. She is currently on a lifting restrictions of less than 30 pounds per previous provider. Ultrasound report from [facility] shows a uterine fibroid of approximately 4 cm. 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 Social History Tobacco Use Smoking status: Never Smokeless tobacco: Never Vaping Use Vaping status: Never Used Substance Use Topics Alcohol use: Not Currently Drug use: Never Current Outpatient Medications Medication Sig SYMBICORT 160-4.5 mcg/actuation inhaler Inhale 1 puff as instructed two times a day. sertraline (ZOLOFT) 50 mg tablet Take 50 mg by mouth once daily. Epinastine HCl 0.05 % drop Use 1 drop in both eyes two times a day. tranexamic acid (LYSTEDA) 650 mg tablet Take 2 tablets 3 times a day as needed for heavy bleeding up to 5 days. No current facility-administered medications for this visit. Allergies As of Date: 03/01/2025 Allergen Noted Reaction ALBUTEROL 01/03/2023 Shortness of Breath ACETAMINOPHEN 03/16/2015 Rash Fully Assessed 03/01/2025 REVIEW OF SYSTEMS Expanded ROS: N/A Allergies and current medication updated:Yes SENSITIVE EXAM: The sensitive examination was discussed with the Patient or Patient's Authorized Earth Sciences Professor. As applicable, any other physician, advance practice provider, medical student, or other health professional student that will be observing or involved in the sensitive examination for educational or training purposes was discussed with the Patient or Authorized Earth Sciences Professor. The Patient or Authorized Earth Sciences Professor has agreed to proceed with the sensitive examination. (Sensitive examination includes inspection and/or palpation of the breasts, pelvis, prostate and anorectal regions). EXAM: BP 142/90 Wt 259 lb (117.5kg) LMP 11/30/2024 GENERAL: pleasant, female in no apparent distress HEENT: Normocephalic, atraumatic, mucus membranes moist, and no lesions CHEST: Normal inspiratory effort PELVIC: external genitalia normal, normal Bartholin's glands, urethra, [place]'s glands, no vulvar lesions, no cervical lesions, physiologic discharge present, normal appearing perineal body and perianal region BIMANUAL: uterus normal size, shape and consistency, no adnexal masses, non-tender, and Moderate tenderness right side NEURO: alert and oriented x3,exam grossly non-focal EXTREMITIES: normal ASSESSMENT AND PLAN: Assessment AND Plan Abnormal uterine bleeding (AUB) Orders: PELVIC US [facility]; Future Uterine leiomyoma, unspecified location Orders: PELVIC US [facility]; Future Will notify patient of test results. May need surgical consult Sarai Del Toro APRN.KENYATTA Medical Decision Making: Problems: Moderate: New problem with uncertain prognosis Data: Unique test(s) ordered: 1 Risk: Moderate: Drug management Medical Decision Making Level: 4 - Moderate [facility] 03-01-2025 History of Presen t illness Narrative Jenni Merino is a 49 year old female who presents for problem visit AUB for 5 month(s). HPI: Patient states that in November of this year she started with heavy irregular bleeding after not having a menses since January 2024. She has been randomly bleeding on and off with no pattern since November. She was given Megace previously which caused her to feel pressure in her chest. She is having some random pelvic pain. If she lifts anything heavy it does increase her bleeding. She is currently on a lifting restrictions of less than 30 pounds per previous provider. Ultrasound report from [facility] shows a uterine fibroid of approximately 4 cm. 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 Social History Tobacco Use Smoking status: Never Smokeless tobacco: Never Vaping Use Vaping status: Never Used Substance Use Topics Alcohol use: Not Currently Drug use: Never Current Outpatient Medications Medication Sig SYMBICORT 160-4.5 mcg/actuation inhaler Inhale 1 puff as instructed two times a day. sertraline (ZOLOFT) 50 mg tablet Take 50 mg by mouth once daily. Epinastine HCl 0.05 % drop Use 1 drop in both eyes two times a day. tranexamic acid (LYSTEDA) 650 mg tablet Take 2 tablets 3 times a day as needed for heavy bleeding up to 5 days. No current facility-administered medications for this visit. Allergies As of Date: 03/01/2025 Allergen Noted Reaction ALBUTEROL 01/03/2023 Shortness of Breath ACETAMINOPHEN 03/16/2015 Rash Fully Assessed 03/01/2025 REVIEW OF SYSTEMS Expanded ROS: N/A Allergies and current medication updated:Yes SENSITIVE EXAM: The sensitive examination was discussed with the Patient or Patient's Authorized Earth Sciences Professor. As applicable, any other physician, advance practice provider, medical student, or other health professional student that will be observing or involved in the sensitive examination for educational or training purposes was discussed with the Patient or Authorized Earth Sciences Professor. The Patient or Authorized Earth Sciences Professor has agreed to proceed with the sensitive examination. (Sensitive examination includes inspection and/or palpation of the breasts, pelvis, prostate and anorectal regions). EXAM: BP 142/90 Wt 259 lb (117.5kg) LMP 11/30/2024 GENERAL: pleasant, female in no apparent distress HEENT: Normocephalic, atraumatic, mucus membranes moist, and no lesions CHEST: Normal inspiratory effort PELVIC: external genitalia normal, normal Barth[place]'s glands, urethra, [place]'s glands, no vulvar lesions, no cervical lesions, physiologic discharge present, normal appearing perineal body and perianal region BIMANUAL: uterus normal size, shape and consistency, no adnexal masses, non-tender, and Moderate tenderness right side NEURO: alert and oriented x3,exam grossly non-focal EXTREMITIES: normal ASSESSMENT AND PLAN: Assessment & Plan Abnormal uterine bleeding (AUB) Orders: PELVIC US [facility]; Future Uterine leiomyoma, unspecified location Orders: PELVIC US [facility]; Future Will notify patient of test results. May need surgical consult Sarai Del Toro APRN.CNP Medical Decision Making: Problems: Moderate: New problem with uncertain prognosis Data: Unique test(s) ordered: 1 Risk: Moderate: Drug management Medical Decision Making Level: 4 - Moderate documented in this encounter [facility] 02-22-2025 Telephone encounter Note Consult is scheduled on 03/01/25 with RM. Pelvic US report/documents in scanned documents on 02/18/25. Jian Salomon RN [facility] 02-22-2025 Miscellaneous Notes Consult is scheduled on 03/01/25 with RM. Pelvic US report/documents in scanned documents on 02/18/25. Jian Salomon RN We don't order tests on non-established patients without an office visit. She needs up to date pap/HPV/EMB. I would say let's have her come in for consult on Saturday w/ AT, EMB and order pelvic US update. In interim get pelvic US from outside facility and find out if has had D&C or anything in past year. I don't see anything like this in care everywhere. we are happy to see her but I cannot guarantee we can get her in for a hyst before April but if it is a fibroid that we can remove hysteroscopically can get her in sooner. Marisol Austin MD Left message for patient to call office- need to know location where US was performed and will attempt to obtain record. Jian Salomon RN Can we see the ultrasound from December? Received ER records from [facility] on 02/19/2025 11:05 AM by Provider, ANNIE Carranza: [facility] patient called requesting a ER f/u. Patient was seen at [facility] in [place] ER last night for bleeding and cramping. States it feels like she's having contractions and her body wants to push the mass out. She had a pelvic US done back in December that showed a uterine fibroid. She met with an REFERRAL AGENT in [place] who planned to schedule her surgery in April. Patient does not want to wait that long and the ER advised she have surgery sooner. Please see US results and referral information in scanned documents form [facility]. Will obtain ER report from [facility]. They did not do any imaging, only blood work. Would you like patient added next week with one of the surgeons? Would you like patient to have a pelvic US since the last one is from December? Lori Lacy RN documented in this encounter [facility] 02-19-2025 Telephone encounter Note We don't order tests on non-established patients without an office visit. She needs up to date pap/HPV/EMB. I would say let's have her come in for consult on Saturday w/ AT, EMB and order pelvic US update. In interim get pelvic US from outside facility and find out if has had D&C or anything in past year. I don't see anything like this in care everywhere. we are happy to see her but I cannot guarantee we can get her in for a hyst before April but if it is a fibroid that we can remove hysteroscopically can get her in sooner. Marisol Austin MD [facility] Work Phone: 02-19-2025 Telephone encounter Note Left message for patient to call office- need to know location where US was performed and will attempt to obtain record. Jian Salomon RN [facility] 02-19-2025 Telephone encounter Note Can we see the ultrasound from December? [facility] Work Phone: 02-19-2025 Telephone encounter Note Received ER records from [facility] on 02/19/2025 11:05 AM by Provider, Tere, ANNIE: [facility] 02-19-2025 Telephone encounter Note [facility] patient called requesting a ER f/u. Patient was seen at [facility] in [place] ER last night for bleeding and cramping. States it feels like she's having contractions and her body wants to push the mass out. She had a pelvic US done back in December that showed a uterine fibroid. She met with an REFERRAL AGENT in [place] who planned to schedule her surgery in April. Patient does not want to wait that long and the ER advised she have surgery sooner. Please see US results and referral information in scanned documents form [facility]. Will obtain ER report from [facility]. They did not do any imaging, only blood work. Would you like patient added next week with one of the surgeons? Would you like patient to have a pelvic US since the last one is from December? Lori Lacy RN [facility] Evaluation note Diagnosis Abnormal uterine bleeding (AUB)- Primary Uterine leiomyoma, unspecified location [facility] Diagnosis Thickened endometrium- Primary Nonspecific (abnormal) findings on radiological and other examination of genitourinary organs Excessive bleeding in premenopausal period Premenopausal menorrhagia [facility] Abnormal uterine bleeding- Primary Unspecified disorder of menstruation and other abnormal bleeding from female genital tract [facility] Diagnosis Abnormal uterine bleeding- Primary Unspecified disorder of menstruation and other abnormal bleeding from female genital tract Thickened endometrium Nonspecific (abnormal) findings on radiological and other examination of genitourinary organs Submucous leiomyoma of uterus Menorrhagia with irregular cycle Excessive or frequent menstruation Generalized abdominal pain Abdominal pain, generalized [facility] Diagnosis Uterine leiomyoma, unspecified location- Primary Abnormal uterine bleeding (AUB) Pre-op exam Preoperative examination, unspecified documented in this encounter [facility] note* Diagnosis Chest pain, unspecified- Primary Aneurysm of the ascending aorta, without rupture (HCC) Shortness of breath Obesity, unspecified [facility] Diagnosis Aneurysm of the ascending aorta, without rupture (HCC)- Primary Chest pain, unspecified Shortness of breath Obesity, unspecified [facility] Diagnosis Aneurysm of the ascending aorta, without rupture (HCC)- Primary Chest pain, unspecified Shortness of breath Obesity, unspecified documented in this encounter [facility] Summary Purpose Family History Arthritis Status:Active Atrial Fibrillation Status:Active Comments:Mot her. Cancer Status:Active Completed Stroke Status:Active Comments:Father . Diabetes Mellitus Type II Status:Active Commen ts:Mother. Father. allm grandparents Hypertension Status:Active Comments:Mother. Father. Coronary Artery Disease Status:Inactiveas Arthritis Status:Active Atrial Fibrillation Status:Active Comments:Mot her. Cancer Status:Active Completed Stroke Status:Active Comments:Father . Diabetes Mellitus Type II Status:Active Commen ts:Mother. Father. allm grandparents Hypertension Status:Active Comments:Mother. Father. Coronary Artery Disease Status:Inactiveas Arthritis Status:Active Atrial Fibrillation Status:Active Comments:Mot her. Cancer Status:Active Completed Stroke Status:Active Comments:Father . Diabetes Mellitus Type II Status:Active Commen ts:Mother. Father. allm grandparents Hypertension Status:Active Comments:Mother. Father. Coronary Artery Disease Status:Inactiveas Arthritis Status:Active Atrial Fibrillation Status:Active Comments:Mot her. Cancer Status:Active Completed Stroke Status:Active Comments:Father . Diabetes Mellitus Type II Status:Active Commen ts:Mother. Father. allm grandparents Hypertension Status:Active Comments:Mother. Father. Coronary Artery Disease Status:Inactiveas Arthritis Status:Active Atrial Fibrillation Status:Active Comments:Mot her. Cancer Status:Active Completed Stroke Status:Active Comments:Father . Diabetes Mellitus Type II Status:Active Commen ts:Mother. Father. allm grandparents Hypertension Status:Active Comments:Mother. Father. Coronary Artery Disease Status:Inactiveas Arthritis Status:Active Atrial Fibrillation Status:Active Comments:Mot her. Cancer Status:Active Completed Stroke Status:Active Comments:Father . Diabetes Mellitus Type II Status:Active Commen ts:Mother. Father. allm grandparents Hypertension Status:Active Comments:Mother. Father. Coronary Artery Disease Status:Inactiveas Arthritis Status:Active Atrial Fibrillation Status:Active Comments:Mot her. Cancer Status:Active Completed Stroke Status:Active Comments:Father . Diabetes Mellitus Type II Status:Active Commen ts:Mother. Father. allm grandparents Hypertension Status:Active Comments:Mother. Father. Coronary Artery Disease Status:Inactiveas Arthritis Status:Active Atrial Fibrillation Status:Active Comments:Mot her. Cancer Status:Active Completed Stroke Status:Active Comments:Father . Diabetes Mellitus Type II Status:Active Commen ts:Mother. Father. allm grandparents Hypertension Status:Active Comments:Mother. Father. Coronary Artery Disease Status:Inactiveas Arthritis Status:Active Atrial Fibrillation Status:Active Comments:Mot her. Cancer Status:Active Completed Stroke Status:Active Comments:Father . Diabetes Mellitus Type II Status:Active Commen ts:Mother. Father. allm grandparents Hypertension Status:Active Comments:Mother. Father. Coronary Artery Disease Status:Inactiveas Arthritis Status:Active Atrial Fibrillation Status:Active Comments:Mot her. Cancer Status:Active Completed Stroke Status:Active Comments:Father . Diabetes Mellitus Type II Status:Active Commen ts:Mother. Father. allm grandparents Hypertension Status:Active Comments:Mother. Father. Coronary Artery Disease Status:Inactiveas Arthritis Status:Active Atrial Fibrillation Status:Active Comments:Mot her. Cancer Status:Active Completed Stroke Status:Active Comments:Father . Diabetes Mellitus Type II Status:Active Commen ts:Mother. Father. allm grandparents Hypertension Status:Active Comments:Mother. Father. Coronary Artery Disease Status:Inactiveas Arthritis Status:Active Atrial Fibrillation Status:Active Comments:Mot her. Cancer Status:Active Completed Stroke Status:Active Comments:Father . Diabetes Mellitus Type II Status:Active Commen ts:Mother. Father. allm grandparents Hypertension Status:Active Comments:Mother. Father. Coronary Artery Disease Status:Inactiveas Arthritis Status:Active Atrial Fibrillation Status:Active Comments:Mot her. Cancer Status:Active Completed Stroke Status:Active Comments:Father . Diabetes Mellitus Type II Status:Active Commen ts:Mother. Father. allm grandparents Hypertension Status:Active Comments:Mother. Father. Coronary Artery Disease Status:Inactiveas Arthritis Status:Active Atrial Fibrillation Status:Active Comments:Mot her. Cancer Status:Active Completed Stroke Status:Active Comments:Father . Diabetes Mellitus Type II Status:Active Commen ts:Mother. Father. allm grandparents Hypertension Status:Active Comments:Mother. Father. Coronary Artery Disease Status:Inactiveas Arthritis Status:Active Atrial Fibrillation Status:Active Comments:Mot her. Cancer Status:Active Completed Stroke Status:Active Comments:Father . Diabetes Mellitus Type II Status:Active Commen ts:Mother. Father. allm grandparents Hypertension Status:Active Comments:Mother. Father. Coronary Artery Disease Status:Inactiveas Arthritis Status:Active Atrial Fibrillation Status:Active Comments:Mot her. Cancer Status:Active Completed Stroke Status:Active Comments:Father . Diabetes Mellitus Type II Status:Active Commen ts:Mother. Father. allm grandparents Hypertension Status:Active Comments:Mother. Father. Coronary Artery Disease Status:Inactiveas Arthritis Status:Active Atrial Fibrillation Status:Active Comments:Mot her. Cancer Status:Active Completed Stroke Status:Active Comments:Father . Diabetes Mellitus Type II Status:Active Commen ts:Mother. Father. allm grandparents Hypertension Status:Active Comments:Mother. Father. Coronary Artery Disease Status:Inactiveas Arthritis Status:Active Atrial Fibrillation Status:Active Comments:Mot her. Cancer Status:Active Completed Stroke Status:Active Comments:Father . Diabetes Mellitus Type II Status:Active Commen ts:Mother. Father. allm grandparents Hypertension Status:Active Comments:Mother. Father. Coronary Artery Disease Status:Inactiveas Arthritis Status:Active Atrial Fibrillation Status:Active Comments:Mot her. Cancer Status:Active Completed Stroke Status:Active Comments:Father . Diabetes Mellitus Type II Status:Active Commen ts:Mother. Father. allm grandparents Hypertension Status:Active Comments:Mother. Father. Coronary Artery Disease Status:Inactiveas Arthritis Status:Active Atrial Fibrillation Status:Active Comments:Mot her. Cancer Status:Active Completed Stroke Status:Active Comments:Father . Diabetes Mellitus Type II Status:Active Commen ts:Mother. Father. allm grandparents Hypertension Status:Active Comments:Mother. Father. Coronary Artery Disease Status:Inactiveas Arthritis Status:Active Atrial Fibrillation Status:Active Comments:Mot her. Cancer Status:Active Completed Stroke Status:Active Comments:Father . Diabetes Mellitus Type II Status:Active Commen ts:Mother. Father. allm grandparents Hypertension Status:Active Comments:Mother. Father. Coronary Artery Disease Status:Inactiveas Arthritis Status:Active Atrial Fibrillation Status:Active Comments:Mot her. Cancer Status:Active Completed Stroke Status:Active Comments:Father . Diabetes Mellitus Type II Status:Active Commen ts:Mother. Father. allm grandparents Hypertension Status:Active Comments:Mother. Father. Coronary Artery Disease Status:Inactiveas Arthritis Status:Active Atrial Fibrillation Status:Active Comments:Mot her. Cancer Status:Active Completed Stroke Status:Active Comments:Father . Diabetes Mellitus Type II Status:Active Commen ts:Mother. Father. allm grandparents Hypertension Status:Active Comments:Mother. Father. Coronary Artery Disease Status:Inactiveas Arthritis Status:Active Atrial Fibrillation Status:Active Comments:Mot her. Cancer Status:Active Completed Stroke Status:Active Comments:Father . Diabetes Mellitus Type II Status:Active Commen ts:Mother. Father. allm grandparents Hypertension Status:Active Comments:Mother. Father. Coronary Artery Disease Status:Inactiveas Arthritis Status:Active Atrial Fibrillation Status:Active Comments:Mot her. Cancer Status:Active Completed Stroke Status:Active Comments:Father . Diabetes Mellitus Type II Status:Active Commen ts:Mother. Father. allm grandparents Hypertension Status:Active Comments:Mother. Father. Coronary Artery Disease Status:Inactiveas Arthritis Status:Active Atrial Fibrillation Status:Active Comments:Mot her. Cancer Status:Active Completed Stroke Status:Active Comments:Father . Diabetes Mellitus Type II Status:Active Commen ts:Mother. Father. allm grandparents Hypertension Status:Active Comments:Mother. Father. Coronary Artery Disease Status:Inactiveas Arthritis Status:Active Atrial Fibrillation Status:Active Comments:Mot her. Cancer Status:Active Completed Stroke Status:Active Comments:Father . Diabetes Mellitus Type II Status:Active Commen ts:Mother. Father. allm grandparents Hypertension Status:Active Comments:Mother. Father. Coronary Artery Disease Status:Inactiveas Arthritis Status:Active Atrial Fibrillation Status:Active Comments:Mot her. Cancer Status:Active Completed Stroke Status:Active Comments:Father . Diabetes Mellitus Type II Status:Active Commen ts:Mother. Father. allm grandparents Hypertension Status:Active Comments:Mother. Father. Coronary Artery Disease Status:Inactiveas Arthritis Status:Active Atrial Fibrillation Status:Active Comments:Mot her. Cancer Status:Active Completed Stroke Status:Active Comments:Father . Diabetes Mellitus Type II Status:Active Commen ts:Mother. Father. allm grandparents Hypertension Status:Active Comments:Mother. Father. Coronary Artery Disease Status:Inactiveas Arthritis Status:Active Atrial Fibrillation Status:Active Comments:Mot her. Cancer Status:Active Completed Stroke Status:Active Comments:Father . Diabetes Mellitus Type II Status:Active Commen ts:Mother. Father. allm grandparents Hypertension Status:Active Comments:Mother. Father. Coronary Artery Disease Status:Inactiveas Arthritis Status:Active Atrial Fibrillation Status:Active Comments:Mot her. Cancer Status:Active Completed Stroke Status:Active Comments:Father . Diabetes Mellitus Type II Status:Active Commen ts:Mother. Father. allm grandparents Hypertension Status:Active Comments:Mother. Father. Coronary Artery Disease Status:Inactiveas Arthritis Status:Active Atrial Fibrillation Status:Active Comments:Mot her. Cancer Status:Active Completed Stroke Status:Active Comments:Father . Diabetes Mellitus Type II Status:Active Commen ts:Mother. Father. allm grandparents Hypertension Status:Active Comments:Mother. Father. Coronary Artery Disease Status:Inactiveas Arthritis Status:Active Atrial Fibrillation Status:Active Comments:Mot her. Cancer Status:Active Completed Stroke Status:Active Comments:Father . Diabetes Mellitus Type II Status:Active Commen ts:Mother. Father. allm grandparents Hypertension Status:Active Comments:Mother. Father. Coronary Artery Disease Status:Inactiveas Arthritis Status:Active Atrial Fibrillation Status:Active Comments:Mot her. Cancer Status:Active Completed Stroke Status:Active Comments:Father . Diabetes Mellitus Type II Status:Active Commen ts:Mother. Father. allm grandparents Hypertension Status:Active Comments:Mother. Father. Coronary Artery Disease Status:Inactiveas Arthritis Status:Active Atrial Fibrillation Status:Active Comments:Mot her. Cancer Status:Active Completed Stroke Status:Active Comments:Father . Diabetes Mellitus Type II Status:Active Commen ts:Mother. Father. allm grandparents Hypertension Status:Active Comments:Mother. Father. Coronary Artery Disease Status:Inactiveas Arthritis Status:Active Atrial Fibrillation Status:Active Comments:Mot her. Cancer Status:Active Completed Stroke Status:Active Comments:Father . Diabetes Mellitus Type II Status:Active Commen ts:Mother. Father. allm grandparents Hypertension Status:Active Comments:Mother. Father. Coronary Artery Disease Status:Inactiveas Arthritis Status:Active Atrial Fibrillation Status:Active Comments:Mot her. Cancer Status:Active Completed Stroke Status:Active Comments:Father . Diabetes Mellitus Type II Status:Active Commen ts:Mother. Father. allm grandparents Hypertension Status:Active Comments:Mother. Father. Coronary Artery Disease Status:Inactiveas Advance Directives No Advanced Directives Records FoundNo Advanced Directives Records FoundNo Advanced Directives Records FoundNo Advanced Directives Records FoundNo Advanced Directives Records FoundNo Advanced Directives Records FoundNo Advanced Directives Records FoundNo Advanced Directives Records Found Additional Source Comments INFORMATION SOURCE (unrecogn ized section and content) DATE CREATED AUTHOR 05/02/2018 [facility] DATE CREATED AUTHOR AUTHOR'S ORGANIZ ATION 01/18/2023 [employer] DATE CREATED AUTHOR AUTHOR'S ORGANIZ ATION 12/13/2024 [facility] DATE CREATED AUTHOR AUTHOR'S ORGANIZ ATION 01/18/2025 [facility] DATE CREATED AUTHOR AUTHOR'S ORGANIZ ATION 03/20/2025 [facility] DATE CREATED AUTHOR AUTHOR'S ORGANIZ ATION 03/21/2025 Abran Pacheco [facility] DATE CREATED AUTHOR AUTHOR'S ORGANIZ ATION 05/01/2025 [facility] DATE CREATED AUTHOR AUTHOR'S ORGANIZ ATION 05/15/2025 [facility] Source Comments (unrecognize d section and content) In the event this informatio n is protected by the Federal Confidentiality of Alcohol and Drug Abuse Patient Records regulations: The Federal rules restrict any use of the information to criminally investigate or prosecute any alcohol or drug abuse patient.[facility] the event this information is protected by the Federal Confidentiality of Alcohol and Drug Abuse Patient Records regulations: The Federal rules restrict any use of the information to criminally investigate or prosecute any alcohol or drug abuse patient.[facility] the event this information is protected by the Federal Confidentiality of Alcohol and Drug Abuse Patient Records regulations: The Federal rules restrict any use of the information to criminally investigate or prosecute any alcohol or drug abuse patient.[facility] the event this information is protected by the Federal Confidentiality of Alcohol and Drug Abuse Patient Records regulations: The Federal rules restrict any use of the information to criminally investigate or prosecute any alcohol or drug abuse patient.[facility] Hospital[facility] the event this information is protected by the Federal Confidentiality of Alcohol and Drug Abuse Patient Records regulations: The Federal rules restrict any use of the information to criminally investigate or prosecute any alcohol or drug abuse patient.[facility] the event this information is protected by the Federal Confidentiality of Alcohol and Drug Abuse Patient Records regulations: The Federal rules restrict any use of the information to criminally investigate or prosecute any alcohol or drug abuse patient.[facility] Hospital[facility] the event this information is protected by the Federal Confidentiality of Alcohol and Drug Abuse Patient Records regulations: The Federal rules restrict any use of the information to criminally investigate or prosecute any alcohol or drug abuse patient.[facility] Hospital[facility] the event this information is protected by the Federal Confidentiality of Alcohol and Drug Abuse Patient Records regulations: The Federal rules restrict any use of the information to criminally investigate or prosecute any alcohol or drug abuse patient.[facility] the event this information is protected by the Federal Confidentiality of Alcohol and Drug Abuse Patient Records regulations: The Federal rules restrict any use of the information to criminally investigate or prosecute any alcohol or drug abuse patient.[facility] Reason for Visit (unrecogniz ed section and content) Reason Comments ED Follow-up Reason Comments Menstrual Problem Reason Comments Results Reason Comments Heavy Bleeding Reason Onset Date Comments Results 03/09/2025 Reason Comments Endometrial Biopsy Specialty Diagnoses / Procedures Referred By Rian hernandez Referred To Contact [facility] Diagnoses Thickened endometrium Excessive bleeding in premenopausal period Procedures ENDOMETRIAL BIOPSY ENDOMETRIAL BX W/WO ENDOCERVIX BX W/O DILAT SPX Kaylah Del Toro APRN.PATTERN ASSEMBLER [address] [place] [address] Phone: tel: fax: [facility] [address] [place] [address] Referral ID Status Reason Start Date Expiration Date V isits Requested Visits Authorized [id number] Closed Auto-Generate d Referral 03/09/2025 03/09/2026 1 1 Reason Comments Discussion AUB and surgical opt ions Specialty Diagnoses / Procedures Referred By Rian t Referred To Contact Ad Operations Intern / REFERRAL AGENT Diagnoses Abnormal uterine bleeding Discuss surgical options for AUB Procedures OFFICE/OUTPATIENT EST PT MAY NOT REQ PHYS/QHP OFFICE/OUTPATIENT ESTABLISHED HIGH MDM 40 MIN EST WHI PATIENT Self Tequila March MD [address] [place] [address] Phone: tel: fax: Referral ID Status Reason Start Date Expiration Date V isits Requested Visits Authorized [id number] Authorized 03/25/2025 11/10/2025 99 99 Reason Comments Pre-Op Exam Care Teams (unrecognized sec tion and content) Strategic Manager Relationship Specialty Start Date End Date Marielena Calhoun [address] [place] [address] PCP - General Family Medicine 02/19/25 Strategic Manager Relationship Specialty Start Date End Date Marielena Calhoun [address] [place] [address] PCP - General Family Medicine 02/19/25 Strategic Manager Relationship Specialty Start Date End Date Marielena Calhoun [address] [place] [address] PCP - General Family Medicine 02/19/25 Strategic Manager Relationship Specialty Start Date End Date Marielena Calhoun [address] [place] [address] PCP - General Family Medicine 02/19/25 Strategic Manager Relationship Specialty Start Date End Date Marielena Calhoun [address] [place] [address] PCP - General Family Medicine 02/19/25 Strategic Manager Relationship Specialty Start Date End Date Marielena Calhoun [address] [facility] [place] [address] PCP - [facility] 02/19/25 Strategic Manager Relationship Specialty Start Date End Date Marielena Calhoun [address] [facility] [place] [address] PCP - [facility] 02/19/25 Strategic Manager Relationship Specialty Start Date End Date Marielena Calhoun [address] [facility] [place] [address] PCP - [facility] 02/19/25 Strategic Manager Relationship Specialty Start Date End Date Marielena Calhoun [address] [facility] [place] [address] PCP - [facility] 02/19/25 FOR RECORDS PERTAINING TO PATIENTS WHO ARE OR HAVE BEEN ENROLLED IN A CHEMICAL DEPENDENCY/SUBSTANCEABUSE PROGRAM, SOME INFORMATION MAY BE OMITTED. This clinical summary was aggregated from multiple sources. Caution should be exercised in using it in the provision of clinical care. This summary normalizes information from multiple sources, and as a consequence, information in this document may materially change the coding, format and clinical context of patient data. In addition, data may be omitted in some cases. CLINICAL DECISIONS SHOULD BE BASED ON THE PRIMARY CLINICAL RECORDS. [facility] [employer] [facility]. provides no warranty or guarantee of the accuracy or completeness of information in this document.
[2025-05-21] MEDS: Magnesium 1 GM over 15 mins IV (06:09)
[2025-05-21] MEDS: Lactated Ringers 1,000 ML 40 ML IV ×2 (06:09→11:26)
[2025-05-21] MEDS: Scopolamine 1mg/72hr Patch 1 PATCH TD (06:10)
[2025-05-21 06:15] LABS: Internal QC Validated? YES +Cl - CLEAR BKGD; Pregnancy, Urine Negative Negative; Record Kit Lot#,Urine Preg 0000947241
--- NOTE | 2025-05-21 06:42 | PRE.ANES_ITS ---
ASA Classification* ASA Classification ASA Classification: 2 Assessment & Plan Anesthesia* Anesthesia Assessment Anesthesia Assessment: Discussed sedation and/or anesthesia options, risks, benefits, and alternatives with patient/parents/legal guardian/POA. Questions invited. The patient/parents/legal guardian/POA seems to understand and agrees to proceed with anesthesia plan. Reviewed the physical assessment, medical history, allergy history and patient home medications list prior to surgery/procedure/anesthetic and documented any changes. Performed airway and anesthesia risk assessments. Anesthesia Type Anesthesia Type: General Anesthesia Focused Assessment* Temperature: 98.1 F Pulse Rate: 79 Blood Pressure: 151/99 Respiratory Rate: 16 Pulse Ox: 100 Airway Assessment Mouth opens: >3 cm Mallampati Score: II Labs Anesthesia Preop lab: CBC WBC 7.3 K/mm3 (4.4-11.0) 05/13/25 06:48 05/13/25 RBC 4.93 M/mm3 (4.2-5.4) 05/13/25 06:48 05/13/25 Hgb 11.8 g/dL (12.0-15.0) L 05/13/25 06:48 5 Hct 36.9 % (37-47) L 05/13/25 06:48 05/13/25 Plt Count 403 K/mm3 (150-450) 05/13/25 06:48 05/13/25 CHEMISTRY Potassium 4.0 mmol/L (3.3-5.1) 05/13/25 06:48 05/13/25 Sodium 138 mmol/L (133-145) 05/13/25 06:48 05/13/25 Magnesium 2.2 mg/dL (1.5-2.2) 05/13/25 06:48 05/13/25 BUN 18 mg/dL (4-19) 05/13/25 06:48 05/13/25 Creatinine 0.66 mg/dL (0.70-1.20) L 05/13/25 06:48 Glucose 101 mg/dL (70-99) H 05/13/25 06:48 05/13/25 COAG Urine Test Negative Negative 05/21/25 05:40 05/21/25 Pre-Assessment Diagnosis/Proposed Procedure Planned Operative Procedure(s): ERAS, Hysterectomy,TLH, bilateral salpingectomy, cystoscopy Anesthesia History 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 When Was Last Pacemaker Check QUESTION #4 FULL TEXT: You/Your Family Experience fever (hyperthermia) with Anesthesia Last Oral Intake Last Oral intake: Last Oral Intake NPO since 04:30 05/21/25 06:23 Meds taken in AM with sips of No 05/21/25 06:23 water? Meds patient instructed to take am of surgery PONV PONV - compressor mechanic bus: PONV - compressor mechanic bus Female Yes 05/10/25 09:24 HX of Motion Sickness No 05/10/25 09:24 HX of N/V After Surgery No 05/10/25 09:24 Non-Smoker Yes 05/10/25 09:24 Duration of Surgery greater Yes 05/10/25 09:24 than 60 minutes Number of Risk Factors 3 05/10/25 09:24 PONV Score Moderate Risk 05/10/25 09:24 Height & Weight Height & Weight: Anesthesia: Height & Weight Height 5 ft 6 in 05/21/25 06:23 Weight: 115.666 kg 05/21/25 06:23 Body Mass Index (BMI) 41.1 05/21/25 06:23 Respiratory Assessment Respiratory Assessment - compressor mechanic bus: Respiratory Tract Infection Hx - compressor mechanic bus Hx Respiratory Tract Infection No 05/10/25 09:24 STOP Sleep Apnea STOP Sleep Apnea - compressor mechanic bus: STOP Sleep Apnea - compressor mechanic bus Hx Hypertension No 05/10/25 09:24 Hx Sleep Apnea No 05/10/25 09:24 CPAP BIPAP Do you snore loudly (louder No 05/10/25 09:24 than talking or can be heard Do you often feel tired/ No 05/10/25 09:24 fatigued/ sleepy during daytime? Has anyone observed you stop No 05/10/25 09:24 breathing during sleep? STOP Results Negative 05/10/25 09:24 QUESTION #5 FULL TEXT : Do you snore loudly (louder than talking or can be heard through closed doors)? 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 Specify any problems Hx of Preganancy in last 3 No 05/10/25 09:24 Months Nurse Filling Out Transfusion JZOLLINGE 05/10/25 09:24 & Questions: Date: 05/10/25 05/10/25 09:24 Time: 09:05/10/25 09:24 Patient unable to answer at this time (ie. confused, unrespo /Reproduction History /Reproductive History - compressor mechanic bus: /Reproductive Hx- compressor mechanic bus Hx Now No 05/10/25 09:24 Gestational Age (in weeks): EDC: Hx Hx Para Hx Section SAB No 05/10/25 09:24 Active Medications Active Medications: Current Medications Generic Name Dose Route Start Last Admin Trade Name Freq PRN Reason Stop Dose Admin Acetaminophen 1,000 mg 05/21/25 07:30 05/21/25 06:09 Acetaminophen 500 Mg Tablet PO 05/21/25 07:31 1,000 mg PREOP ONE Administration Celecoxib 400 mg 05/21/25 07:30 05/21/25 06:10 Celecoxib 200 Mg Capsule PO 05/21/25 07:31 400 mg PREOP ONE Administration Enoxaparin Sodium 40 mg 05/21/25 07:30 05/21/25 06:10 Enoxaparin 40 Mg/0.4 Ml Syringe SC 05/21/25 07:31 40 mg PREOP ONE Administration Gabapentin 600 mg 05/21/25 07:30 05/21/25 06:10 Gabapentin 600 Mg Tablet PO 05/21/25 07:31 600 mg PREOP ONE Administration Lactated Ringer's 1,000 mls @ 40 mls/hr 05/21/25 07:30 05/21/25 06:09 IV 40 mls/hr .Q25H NANCY Administration Cefazolin Sodium 2 gm/ Sodium 110 mls @ 150 mls/hr 05/21/25 07:30 Chloride IV 05/21/25 08:13 INTRAOP ONE Metronidazole 500 mg in 100 mls @ 100 mls/hr 05/21/25 07:30 Flagyl IV 05/21/25 08:29 INTRAOP ONE Magnesium Sulfate 1 gm/ 102 mls @ 408 mls/hr 05/21/25 07:30 05/21/25 06:09 Dextrose IV 05/21/25 07:44 408 mls/hr INTRAOP ONE Administration Insulin Human Lispro 0 unit 05/21/25 07:30 Insulin Lispro 100 Unit/Ml Insuln.Pen SC Q4H PRN PRN BG >/= 180, SEE PROTOCOL Protocol Ondansetron HCl 4 mg 05/21/25 07:30 Ondansetron 4 Mg/2 Ml Vial IV 05/21/25 07:31 INTRAOP ONE Phenazopyridine HCl 190 mg 05/21/25 07:30 05/21/25 06:09 Phenazopyridine 95 Mg Tablet PO 05/21/25 07:31 190 mg PREOP ONE Administration Scopolamine HBr 1 patch 05/21/25 07:30 05/21/25 06:10 Scopolamine 1mg/72hr Patch TD 05/21/25 07:31 1 patch PREOP ONE Administration PFSH Medical History Wears glasses Wears partial dentures Anxiety Hx of hypoglycemia Migraine headache Heartburn Non-smoker Shortness of breath on exertion Asthma History of echocardiogram Cardiology follow-up encounter History of stress test Home Medications ?Medication ?Instructions ?Recorded ?Last Taken ?Type budesonide-formoterol HFA 160 1 puff inhalation BID 05/20/25 History mcg-4.5 mcg/actuation aerosol inhaler (Symbicort) megestrol 40 mg tablet 80 mg PO BID 05/10/25 History sertraline 50 mg tablet 50 mg PO DAILY 05/10/2505/11 History Allergy/AdvReac Type Severity Reaction Status Date / Time albuterol Allergy Intermediate Chest Verified 05/21/25 06:29 tightness acetaminophen (From Tylenol) AdvReac Intermediate Rash Verified 05/21/25 06:29 Surgical History Hx of foot surgery Hx of tonsillectomy Social History Smoking Status: Never smoker Review of Systems (Anesthesia) ROS Narrative System reviewed and no additional complaints, except as documented.
[2025-05-21] MEDS: metroNIDAZOLE 500 MG/100 ML BAG 100 MG IV (07:04)
--- NOTE | 2025-05-21 07:30 | HYST_PTH ---
PATIENT: DAT MERINO LOC: [facility] [place] U#:[id number] AGE/SX: 49/F ROOM: RE05/21/[address]: Dr. Tequila Ruano, MDDOB: 1975 BED: DIS: 05/21/2025 SPEC #: [id number] RECD: 05/21/25 09:48 STATUS: CRISTINA ZAVALASri #: [id number] JAY: 05/21/25 07:[address]: Tequila Ruano DEPT: SURGICAL PATHOLOGY RECD BY: Suraj Zayas ENTERED: 05/21/25 10:37 SP TYPE: HYSTERECT OTHR DR: MD Marielena Tavarez PA Tissues: A - Uterus, NOS Procedures: Surgery Specimen Level V HEADER OPERATION: YIMI FRANCISCO bilateral salpingectomy PRE-OP DIAGNOSIS: Uterine fibroids, abnormal uterine bleeding TISSUE SUBMITTED: A- Uterus, cervix, bilateral fallopian tubes MICROSCOPIC DIAGNOSIS A. Uterus, cervix, bilateral fallopian tubes, hysterectomy, bilateral salpingectomy: Cervix: Benign squamous epithelium and endocervical glandular tissue Endometrium: Weakly proliferative endometrium Myometrium: Superficial and deep adenomyosis, leiomyomata Bilateral fallopian tubes: Benign fallopian tubes with benign paratubal cysts MICROSCOPIC DESCRIPTION Slides are reviewed. GROSS DESCRIPTION A. Received in formalin labeled with the patient's name and date of . Designated as uterus, cervix, bilateral fallopian tubes is a 186.7 g, 10.3 x 6.7 x 5.0 cm distorted and irregular uterus with detached adnexa. The serosa is pink with patchy congestion, patchy adhesions and a 1.0 x 0.6 cm full-thickness defect (anterior) that appears iatrogenic in nature. The attached cervix is pink-red and sloughing (12:00 to 3:00) and measures 3.0 x 2.7; the 1.0 cm os is probe patent with surrounding erythematous granularity. Mucoid containing cysts are present. Orientation is established using the posterior peritoneal reflection. The specimen is inked as follows: Rdhajrme-etxejLbydklmke-pyjwhMutuutzwcde-orange. Opening reveals a 6.9 x 1.9 cm irregular endometrial canal lined by juarez-pink somewhat granular and measures up to 0.2 cm thick; there is a 2.2 x 0.6 cm area of slightly irregular endometrium (anterior) that appears folded. The myometrium is juarez-pink trabecular and focally cystic with few intramural leiomyomas, the largest of which measures 5.0 cm and is compressing the endometrial canal; the myometrium measures up to 2.9 cm thick. The detached, pink-red bilateral fallopian tubes are fimbriated and measure 3.9 x 0.5 cm and 4.9 x 0.5 cm. Few paratubal cysts are identified, 0.2-1.1 cm. The ovaries are not present. Mold Preparer sections are submitted as follows: A1: Anterior cervixA2: Posterior cervixA3: Anterior endomyometrium, with focally cystic myometriumA4: Posterior endomyometriumA5: Anterior endometrium, irregular, residential sales representative A6-A7: Fallopian tubesA8: Largest leiomyoma CA 05/21/2025 CPT:75229
--- NOTE | 2025-05-21 09:09 | OP.PCM_ITS ---
Operative Report (Standard) Operative Information Date of Procedure: 05/21/25 Pre-Operative Diagnosis: AUB, fibroid uterus Post-Operative Diagnosis: Same Surgery/Procedure Performed: TLH, Bilateral salpingectomy, Cysto windmill mechanic: Yes Middle School Music Teacher: Marisol Austin Tasks completed by merchandising assistant: Dissecting tissue and Removing tissue Additional early childhood teacher assistant?: Yes Additional Sand Buffer #2: Arianna Barba Tasks completed by early childhood teacher assistant #2: Opening, Dissecting tissue and Retracting Additional early childhood teacher assistant?: Yes Additional Sand Buffer #3: trisha cesar MS4 Tasks completed by early childhood teacher assistant #3: Closing and Retracting Type of Anesthesia: General and Local RN Documented Start/Stop Times: Operation Date: 05/21/25 07:30 Case Time Into Pre-Op 05/21/25 05:44 Out of Pre-Op 05/21/25 07:26 Anesthesia Start 05/21/25 07:28 Into Room 05/21/25 07:28 Procedure Start 05/21/25 07:52 Procedure Start Time: 07:52 Procedure Stop Time: 09:09 Select all DRAINS/GRAFTS/IMPLANTS that apply: None Special Medications: Hemoblast Estimated Blood Loss: 25 Fluids Replaced: 1300 Specimen collected: Yes Description of specimen(s) removed: uterus, cervix, bilateral fallopian tubes Description of surgery: Patient take to OR and prepped and draped in usual sterile fashion in dorsal lithotomy position with her arms tucked in a neurologically safe and neutral position. The uterus sounded to 7.5 cm. The can feeder uterine manipulator was sutured into place at 3/9:00 position and wills were placed. Attention was turned to the abdomen. All port sites were infiltrated with 0.5% marcaine before the incisions were made. The anterior abdominal wall was tented up with towel clamps and using a direct entry approach a 5 mm intraumbilical port was placed. Intraperitoneal placement was confirmed with the laparoscope and the pneumoperitoneum was created. The patient was placed in Trendelenburg and 5 mm right and left lower quadrant ports were placed under direct visualization. Air seal rapid insufflator was used. The bowel was swept away. Ovaries appeared normal. The mesosalpinx starting at fimbriated end were grasped, clamped, sealed and transected with the Ligasure. The round ligaments were divided. The anterior peritoneum was dissected down to create the bladder flap with blunt dissection and the LigaSure. The uterine arteries were isolated, clamped, sealed and cut. There was minimal back bleeding from the uterus. Straight bites on uterine artieries performed to drop them off the cuff. The manipulator was used as guide to create colpotomy using monopolar tip of ligasure. once specimen was removed attention was turned to vaginal portion. The specimen was handed off. The cuff was closed with interrupted 0-vicryl figure of 8 sutures. Cystoscopy was performed bilateral ureters were visualized with good efflux. bladder was intact. wills replaced and sponge stick placed in vagina. The pneumoperitoneum was recreated and the cuff and pedicles were hemostatic. hemoblast was placed over cuff and pedicles. The skin incisions were closed with skin glue and 3-0 monocryl in the LLQ port site. The vaginal sweep was completed by me. Grafts/Implants Used: none Surgical Findings: normal tubes and ovaries bilaterally Complications Complications: No Admit VTE Documentation VTE Present on Admission: Yes VTE Mechan Device Prophylaxis: SCD's VTE Pharm Prophylaxis ordered?: Yes
--- NOTE | 2025-05-21 09:29 | PCM.POST.ANE ---
Anesthesia: Postop Eval I Current Vital Signs Temperature: 97.8 F Pulse Rate: 66 Blood Pressure: 108/52 Respiratory Rate: 18 Pulse Ox: 95 (4L O2 ETCO2) Assessment Airway patent: Yes Spontaneous unlabored respirations: Yes nausea: No Vomiting: No Anesthesia Complication: No Fluid Hydration Crystalloid volume administer (ml): 1,300 Total IV fluid infused: 1,300 Progress Note Anesthesia document: Postop Eval 1 completed: Yes
--- NOTE | 2025-05-21 11:34 | PCM.DC ---
Discharge Instructions Diet Discharge Diet: No restrictions DC O2, CPAP, BIPAP needs Home O2 Discharge instructions: No Dressing / Incision Discharge Activity: May Not Drive (while taking narcotics. may drive when pain controlled. ) and May Shower May shower in (days): 1 May resume sexual activity in: 6-8 weeks Weight Bearing Status: Full weight bearing Lifting Restrictions: 20 Additional Activity Instructions:: NOTHING IN THE VAGINA x 6-8 weeks. Dressing / Incision Call your doctor if your incision/area has: Continuous Slow Oozing, Sudden Increased Bleeding, Increased Pain/ Swelling, Increased Redness, Foul Smelling Discharge and Swelling at the incision site Call your doctor if you observe: Fever of 101 or Higher, Inability to have a bowel movement, Using more than 1 pad per hour and Uncontrolled pain Change Dressing in: leave in place till F/U (you have skin glue over incision sites- do not pick off) Cleanse incision/area with: Soap & Water, Keep Dressing Clean & Dry and - (you may let soap and water run over incision sites and dab dry. ) Follow Up Care Please Follow Up With: Tequila Ruano MD When: 1-2 weeks as scheduled for post op visit and then at 6 weeks post op Test Results: Test results from this visit will be discussed in further detail at your follow-up appointment, if applicable. Discharge Plan Admission Attending Provider: Tequila Ruano Primary Care Provider: Marielena Calhoun Consulting Providers: Ralph Benitez Instructions Print Language: [place] Discharge Orders/Prescriptions Prescriptions: No Action megestrol 40 mg tablet 80 mg PO BID sertraline 50 mg tablet 50 mg PO DAILY budesonide-formoterol [Symbicort] 160-4.5 mcg/actuation HFA aerosol inhaler 1 puff INHALATION BID Referrals / Follow Up: Marielena Calhoun PA [Primary Care Provider] - Disposition Disposition (needs filled in before D/C Order can be placed): Home, Self Care
--- NOTE | 2025-05-21 11:45 | POSTOPAN2_ITS ---
Anesthesia Postop Eval I Sum Postop Eval Completion status Anesthesia document: Postop Eval 1 completed: Yes Anesthesia Postop Eval I Summary Anesthesia Postop Eval I Summary: Anesthesia Postop Eval I: Assessment Summary Airway patent Yes 05/21/25 09:29 [employer]ESS[employer]I PRESCHOOL [email or web address].[email or web address] Spontaneous unlabored Yes 05/21/25 09:29 [employer]ESS[employer] PRESCHOOL TEACHER.CSIR respirations Mental status nausea No 05/21/25 09:29 [employer]ONTESS[employer] PRESCHOOL TEACHER.CSIR Vomiting No 05/21/25 09:29 [employer]ESS[employer]I PRESCHOOL [email or web address].CSIR Anesthesia Postop Eval I: Fluid Summary Crystalloid volume administer 1,300 05/21/25 09:29 [employer]ONTESS[employer]I PRESCHOOL TEACHER.CSIR (ml) Colloids volume administered ( ml) Blood Product volume administered (ml) Total IV fluid infused 1,300 05/21/25 09:29 [employer]ONTESS[employer]I PRESCHOOL [email or web address].CSIR Anesthesia Postop Eval I: Summary Notes Anesthesia Complication No 05/21/25 09:29 M[employer]ESS[employer]I PRESCHOOL TEACHER.CSIR Anesthesia Complication Comment: Post-operative progress note Anesthesia: Postop Eval II Evaluation Mental status: Awake Pain Level: 0 nausea: No Vomiting: No
--- NOTE | 2025-05-21 11:45 | PCM.POSTANE2 ---
Anesthesia Postop Eval I Sum Postop Eval Completion status Anesthesia document: Postop Eval 1 completed: Yes Anesthesia Postop Eval I Summary Anesthesia Postop Eval I Summary: Anesthesia Postop Eval I: Assessment Summary Airway patent Yes 05/21/25 09:29 ACCOUNT [email or web address] Spontaneous unlabored Yes 05/21/25 09:29 ACCOUNT [email or web address].CSIR respirations Mental status nausea No 05/21/25 09:29 ACCOUNT [email or web address] Vomiting No 05/21/25 09:29 ACCOUNT [email or web address] Anesthesia Postop Eval I: Fluid Summary Crystalloid volume administer 1,300 05/21/25 09:29 ACCOUNT [email or web address].CSIR (ml) Colloids volume administered ( ml) Blood Product volume administered (ml) Total IV fluid infused 1,300 05/21/25 09:29 ACCOUNT [email or web address].CSIR Anesthesia Postop Eval I: Summary Notes Anesthesia Complication No 05/21/25 09:29 ACCOUNT [email or web address].CSIR Anesthesia Complication Comment: Post-operative progress note Anesthesia: Postop Eval II Evaluation Mental status: Awake Pain Level: 0 nausea: No Vomiting: No
[2025-05-21] MEDS: HYDROcodone Bitartrate/Apap 5/325 Tablet PO (12:12)
--- NOTE | 2025-05-21 13:06 | PCM.DC ---
Discharge Instructions Diet Discharge Diet: No restrictions DC O2, CPAP, BIPAP needs Home O2 Discharge instructions: No Dressing / Incision May shower in (days): 1 May resume sexual activity in: 6-8 weeks Weight Bearing Status: Full weight bearing Additional Activity Instructions:: NOTHING IN THE VAGINA x 6-8 weeks. Dressing / Incision Call your doctor if your incision/area has: Continuous Slow Oozing, Sudden Increased Bleeding, Increased Pain/ Swelling, Increased Redness, Foul Smelling Discharge and Swelling at the incision site Call your doctor if you observe: Fever of 101 or Higher, Inability to have a bowel movement, Using more than 1 pad per hour and Uncontrolled pain Cleanse incision/area with: Soap & Water, Keep Dressing Clean & Dry and - (you may let soap and water run over incision sites and dab dry. ) Follow Up Care Please Follow Up With: Tequila Ruano MD Test Results: Test results from this visit will be discussed in further detail at your follow-up appointment, if applicable. Discharge Plan Admission Attending Provider: Tequila Ruano Primary Care Provider: Marielena Calhoun Consulting Providers: Ralph Benitez Instructions Print Language: Greenlandic Discharge Orders/Prescriptions Prescriptions: New oxycodone 5 mg tablet 5 mg PO Q4H PRN PRN (Reason: post op pain) 3 Days Qty: 10 0RF No Action megestrol 40 mg tablet 80 mg PO BID sertraline 50 mg tablet 50 mg PO DAILY budesonide-formoterol [Symbicort] 160-4.5 mcg/actuation HFA aerosol inhaler 1 puff INHALATION BID Referrals / Follow Up: Marielena Calhoun PA [Primary Care Provider] - Disposition Disposition (needs filled in before D/C Order can be placed): Home, Self Care
== END 2025-05-21 14:00 | disposition home or self-care (01) ==
LOC: SDC 05:34 → AC 05:35
PROVIDERS: Anesthesiology; PCP Physician Assistant; Referring Provider Obstetrics & Gynecology; Visit Provider Obstetrics & Gynecology
PROC: 0UT94ZZ Resection of Uterus, Percutaneous Endoscopic Approach (ICD-10-PCS; CPT 58571; principal; 2025-05-21 07:10)
DX: N93.9 Abnormal uterine and vaginal bleeding, unspecified (principal); F41.1 Generalized anxiety disorder; D25.9 Leiomyoma of uterus, unspecified; N80.03 Adenomyosis of the uterus; N83.8 Other noninflammatory disorders of ovary, fallopian tube and broad ligament; Z79.899 Other long term (current) drug therapy
CPT/HCPCS: 58571; 00840; 36415; 80048; 81025; 82962; 83735; 85027; 86850; 86900; 86901; 88307; J2405; J3475